=== PATIENT | male | born 1955 | race Caucasian/White ===

== ENCOUNTER 2022-08-22 06:56 | Day surgery (SDC) | payer MEDICARE, OTHER ==
[2022-08-18 15:26] VITALS: BP 102/78
[2022-08-18 15:32] LABS: BASOPHILS % (AUTO) 1.3 % (0.0-5.0); HEMATOCRIT 48.1 % (42-54); LYMPHOCYTES % (AUTO) 30.9 % (21.0-51.0); MEAN CORPUSCULAR HEMOGLOBIN 28.2 pg (27.0-33.0); MEAN CORPUSCULAR HGB CONC 32.2 g/dL (32.0-36.0); MEAN CORPUSCULAR VOLUME 87.5 fL (79-99); MONOCYTES % (AUTO) 8.8 % (3.0-13.0); NEUTROPHILS % (AUTO) 56.6 % (40.0-77.0); PLATELET COUNT (AUTO) 248 K/uL (130-400); RED CELL DISTRIBUTION WIDTH 15.2 % (11.0-15.5)
[2022-08-18 15:48] LABS: POTASSIUM 4.7 mmol/L (3.5-5.1)
[~2022-08-22] VITALS: Ht 182.9 cm; Wt 92.7 kg
[2022-08-22] VITALS (21 sets, daily range): BP systolic 86–176; BP diastolic 52–111
[~2022-08-22 06:56] MED LIST: ATOR40TA69 PO; CITA-107 PO; FAMO20TA8 PO; GABA-533 PO; ISOS30TA92 PO; METO-391 PO; RIVA20TA PO; TRAM50TA4 PO; VITAMIN D3 PO
[2022-08-22] MEDS ORDERED: CEFAZOLIN SODIUM 1 GM VIAL ONE (07:20)
[2022-08-22] MEDS ORDERED: LACTATED RINGERS 1000ML 1,000 ML IV ONE (07:20)
[2022-08-22] MEDS ORDERED: BUPIVACAINE/PF 0.25% 10ML VIAL IJ ONE (10:05)
[2022-08-22] MEDS ORDERED: LIDOCAINE HCL 1% 20 ML VIAL ONE (10:05)
[2022-08-22] MEDS ORDERED: BUPIVACAINE/PF 0.25% 30ML VIAL IJ ONE (10:06)
[2022-08-22] MEDS ORDERED: BUPIVACAINE/PF 0.5% 30ML VIAL INJ ONE (10:11)
[2022-08-22] MEDS ORDERED: IPRATROPIUM/ALBUTEROL SULFATE 3 ML SOLUTION IH ONE (10:12)
[2022-08-22] MEDS ORDERED: LIDOCAINE HCL 1% 20 ML VIAL MISC ONE (10:12)
[2022-08-22] MEDS ORDERED: ROCURONIUM 10MG/1ML SYR 10 MG/ML ML ONE (10:28)
[2022-08-22] MEDS ORDERED: PROPOFOL 10 MG/ML 20ML VIAL IV ONE (10:28)
[2022-08-22] MEDS ORDERED: SUCCINYLCHOLINE 200MG/10ML SYR ONE (10:28)
[2022-08-22] MEDS ORDERED: FENTANYL CITRATE PF 50 MCG/1 ML 2ML VIAL ONE (10:28)
[2022-08-22] MEDS ORDERED: MIDAZOLAM HCL 1 MG/ML 2ML VIAL ONE (10:28)
[2022-08-22] MEDS ORDERED: CEFAZOLIN SODIUM 2 GM VIAL IVPB ONE (10:41)
[2022-08-22] MEDS ORDERED: NEOSTIGMINE 5MG/5ML SYR IV ONE (11:24)
[2022-08-22] MEDS ORDERED: GLYCOPYRROLATE 1 MG/5 ML SYRINGE ONE (11:24)
[2022-08-22] MEDS ORDERED: MEPERIDINE-PF 25 MG/ML SYG ONE (11:59)
== END 2022-08-22 14:00 | disposition home or self-care (01) ==
LOC: DAH 06:56
PROVIDERS: ATTEND Surgery
DX: K40.90 Unilateral inguinal hernia, without obstruction or gangrene, not specified as recurrent (principal); Z20.822 Contact with and (suspected) exposure to COVID-19; I10 Essential (primary) hypertension; I73.9 Peripheral vascular disease, unspecified; I25.10 Atherosclerotic heart disease of native coronary artery without angina pectoris; J44.9 Chronic obstructive pulmonary disease, unspecified; F17.210 Nicotine dependence, cigarettes, uncomplicated; E78.5 Hyperlipidemia, unspecified; Z88.8 Allergy status to other drugs, medicaments and biological substances; Z98.890 Other specified postprocedural states; Z79.899 Other long term (current) drug therapy
CPT/HCPCS: 49650; S2900; 36415; 80048; 85025; 87426; 94640; A4344; J0330; J0690; J2175; J2250; J2704; J2710; J3010; J3490; J7030; J7120

== ENCOUNTER → 2023-11-23 | Outpatient (CLI) | payer OTHER ==
[~2023-11-23] MED LIST changes: -GABA-533 PO; +GABA-534 PO
[2023-11-23 13:01] LABS: CREATININE 0.8 mg/dL (0.5-1.3); POTASSIUM 4.2 mmol/L (3.5-5.1)
== END | disposition home or self-care (01) ==
LOC: LAB 11:19
PROVIDERS: ATTEND Internal Medicine Cardiovascular Disease
DX: I72.9 Aneurysm of unspecified site (principal)
CPT/HCPCS: 36415; 80048

== ENCOUNTER → 2023-11-27 | Outpatient (CLI) | payer OTHER ==
[~2023-11-27] MED LIST changes: +IOHEXOL 350 MG/ML 100ML INFUS..BTL IV ONE; +IOHEXOL-350 50ML VIAL IV ONE
== END | disposition home or self-care (01) ==
LOC: RAH 07:45
PROVIDERS: ATTEND Internal Medicine Cardiovascular Disease
DX: I71.43 Infrarenal abdominal aortic aneurysm, without rupture (principal); N28.1 Cyst of kidney, acquired; K57.30 Diverticulosis of large intestine without perforation or abscess without bleeding; I70.90 Unspecified atherosclerosis; M47.815 Spondylosis without myelopathy or radiculopathy, thoracolumbar region
CPT/HCPCS: 75635; Q9967 ×2

== ENCOUNTER 2025-01-10 04:19 | Inpatient (IN) | payer OTHER, MEDICARE ==
[~2025-01-10] VITALS: Ht 182.9 cm; Wt 92.9 kg
[2025-01-10] VITALS (11 sets, daily range): BP systolic 99–125; BP diastolic 68–74; PULSE 77–105; RESP 18–24; TEMP 97.8–98.2; O2SAT 93–100
[~2025-01-10 04:19] MED LIST changes: -IOHEXOL 350 MG/ML 100ML INFUS..BTL IV ONE; -IOHEXOL-350 50ML VIAL IV ONE
--- NOTE | 2025-01-10 04:51 | ERN ---
ED Note History of Present Illness Stated Complaint: C/O DIFFICULTY BREATHING, Chief Complaint: Dyspnea/Respdistress Time Seen by MD: 04:26 Dictation: This is a 69-year-old male who presented to the emergency room with complaints of shortness of breath cough chest congestion and sputum going on for the past few days. Patient at baseline is not on home oxygen and he is also not on any kind of bronchodilators at baseline. He stated that for the past 1 week he has had increasing shortness of breath cough and copious amounts of sputum with a severe wheezing. No Travel no other sick contacts, no new pets Temperature 97.9 pulse 60 respirations 20 blood pressure 106/72 with a pulse oximetry of 95% on room air His chronic medical problems include AFib on Xarelto, COPD, hypertension, hypercholesterolemia, tobacco abuse active current smoker Allergies: Coded Allergies: morphine (Unverified Allergy, Unknown, 08/18/22) Home Meds Reported Medications Gabapentin (Gabapentin) 400 Mg Capsule, 800 MG PO TID, CAP 08/18/22 Isosorbide Mononitrate (Isosorbide Mononitrate ER) 30 Mg Tab.er.24h, 30 MG PO DAILY, TAB 08/18/22 Metoprolol Succinate (Metoprolol Succinate) 50 Mg Tab.er.24h, 50 MG PO BID, TAB 08/18/22 Famotidine (Famotidine) 20 Mg Tablet, 20 MG PO BID, TAB 08/18/22 Citalopram Hydrobromide (Citalopram HBr) 20 Mg Tablet, 20 MG PO DAILY, TAB 08/18/22 [Vitamin D3] No Conflict Check, 1000 UNITS PO DAILY 08/18/22 Tramadol Hcl (Tramadol HCl) 50 Mg Tablet, 50 MG PO QID PRN for PAIN, TAB 08/18/22 Atorvastatin Calcium (LIPITOR) 80 Mg Tablet, 80 MG PO HS, TAB 08/18/22 Rivaroxaban (Xarelto) 20 Mg Tablet, 20 MG PO PCLUNCH, TAB 08/18/22 Past Medical History Past Medical History: A-Fib, COPD, High Cholesterol, Hypertension Surgical History: Other Family History: Negative Social History: Smokers RN Note Reviewed/Agreed w/PFSH: Yes Review of System Dictation Constitutional: Negative for fever,chills, and weight loss Eyes: Negative for injury, pain,redness, and discharge ENT: Negative for injury,pain or swelling Cardiovascular: Negative for chest pain, palpitations, and edema Respiratory: Positive for shortness of breath, cough, and wheezing, Abdomen/GI: Negative for abdominal pain, nausea, vomiting, diarrhea, and constipation Back: Negative for injury and pain : Negative for injury, bleeding and discharge MS/Extremity: Negative for injury and deformity Skin: Negative for rash, and discoloration Neuro: Negative for headache, weakness, numbness, tingling, and seizure Psych: Negative for suicide ideation, homicidal ideation, and hallucinations Initial Vital Sign VS Vital Signs Date Time Temp Pulse Resp B/P (MAP) Pulse Ox O2 Delivery O2 Flow Rate FiO2 01/10/25 04:31 97.9 60 20 106/72 95 Room Air 01/10/25 04:35 0 21 Physical Exam Dictation General: awake, alert, NAD severe audible wheezing during my evaluation Head/Face: Normocephalic, atraumatic Eyes: PERRL, EOMI, vision at baseline ENT: oral cavity clear, TMs clear, no signs of infection Neck: Trachea midline, supple, no nuchal rigidity Cardiovascular: RRR, normal S1/S2, No MRGs, no JVD Respiratory: Diffuse end expiratory wheezes with audible wheezing. Abdomen: Soft, non-tender, non-distended, normal bowel sounds, no guarding or rebound. Skin: Warm, dry, normal turgor, no rash MS/Extremity: Pulses equal, no cyanosis, neurovascular intact, FROM Neuro: COAx4, GCS 15, strength 5/5, CN 2-12 intact, normal cerebellar exam, normal gait, Psych: Normal behavior, mood, and affect normal Extremities-trace edema without any palpable cords, Homans sign is negative Results (Laboratory/Radiology) Laboratory/Radiology Laboratory Tests Test 01/10/25 04:32 01/10/25 05:26 White Blood Count 8.0 K/uL (4.8-10.8) Red Blood Count 5.84 MIL/uL (4.50-6.20) Hemoglobin 16.7 g/dL (14.0-18.0) Hematocrit 49.5 % (42-54) Mean Corpuscular Volume 84.8 fL (79-99) Mean Corpuscular Hemoglobin 28.6 pg (27.0-33.0) Mean Corpuscular Hemoglobin Concent 33.7 g/dL (32.0-36.0) Red Cell Distribution Width 15.5 % (11.0-15.5) Platelet Count 220 K/uL (130-400) Mean Platelet Volume 10.6 fL (7.5-10.5) H Immature Granulocyte % (Auto) 0.3 % (0-1) Neutrophils (%) (Auto) 55.1 % (40.0-77.0) Lymphocytes (%) (Auto) 27.5 % (21.0-51.0) Monocytes (%) (Auto) 13.3 % (3.0-13.0) H Eosinophils (%) (Auto) 2.9 % (0.0-8.0) Basophils (%) (Auto) 0.9 % (0.0-5.0) Neutrophils # (Auto) 4.4 K/uL (1.8-7.7) Lymphocytes # (Auto) 2.2 K/uL (1.0-4.8) Monocytes # (Auto) 1.1 K/uL (0.1-1.0) H Eosinophils # (Auto) 0.23 K/uL (0.00-0.70) Basophils # (Auto) 0.07 K/uL (0.00-0.20) Absolute Immature Granulocyte (auto 0.02 K/uL (0-1) Nucleated Red Blood Cells 0.0 % (0.0-0.19) Troponin I High Sensitivity 8 ng/L (4-75) B-Type Natriuretic Peptide 72 pg/mL (0-100) Influenza Type A Antigen Negative For Type A Influenza Type B Antigen Negative For Type B SARS-CoV-2 Antigen (Rapid) PRESUMPTIVE NEGATIVE Group A Streptococcus Rapid negative (NEGATIVE) Sodium Level 140 mmol/L (136-145) Potassium Level 4.4 mmol/L (3.5-5.1) Chloride Level 102 mmol/L (101-111) Carbon Dioxide Level 35 mmol/L (21-32) H Blood Urea Nitrogen 17 mg/dL (7-18) Creatinine 0.9 mg/dL (0.5-1.3) Glomerular Filtration Rate Calc 92 mL/min (>90) Random Glucose 104 mg/dL (70-105) Total Calcium 8.7 mg/dL (8.5-10.1) Total Bilirubin 0.9 mg/dL (0.2-1.0) Aspartate Amino Transf (AST/SGOT) 21 U/L (10-37) Alanine Aminotransferase (ALT/SGPT) 23 U/L (12-78) Alkaline Phosphatase 166 U/L (50-136) H Total Creatine Kinase 83 U/L (21-232) Total Protein 6.9 g/dL (6.0-8.3) Albumin 3.2 g/dL (3.5-5.0) L Labs Reviewed?: Yes EKG Comment: Twelve lead EKG done on 01/10/2025 at 4:33 a.m. showed a heart rate of 97 irregular, QRS 92, QT/QTC 366/465 Impression atrial fibrillation with a occasional PVCs. Lot of artifactual recording due to patient shaking and sweating. EKG rhythm strip shows irregular heart rhythm, atrial fibrillation with nonspecific changes Interpreted by ER MD Dr. Arias ED Course ED Course Orders Procedure Category Date Status Time Chest 1vw RAD 01/10/25 Resulted 04:31 12 Lead Ekg Tracing- EKG 01/10/25 Complete Technical 04:32 Ipratropium/Albuterol PHA 01/10/25 Complete Neb (Duoneb) 05:00 Covid19 (Sars Antigen LAB 01/10/25 Complete Rapid) 04:33 Influenza Type A & B, LAB 01/10/25 Complete Rapid 04:33 Rapid (Group A Strep) LAB 01/10/25 Complete 04:33 Cbc With Differential LAB 01/10/25 Complete 04:40 O2 Nc Keep Sats CPOE 01/10/25 Transmitted Greater 92% 04:43 0.9%Nacl 1000ml (Ns PHA 01/10/25 In Process 1000ml) 05:00 Methylprednisolone PHA 01/10/25 Complete Succ 125mg (Solu-Medr 05:00 B-Type Natriuretic LAB 01/10/25 Complete Peptide 04:49 Magnesium 2gm Premix PHA 01/10/25 In Process 50ml (Magnesium 2gm 05:00 Arterial Blood Gas RT 01/10/25 Transmitted 04:54 Albuterol 0.083% PHA 01/10/25 Complete 2.5mg/3ml (Proventil 05:00 Albuterol 0.083% PHA 01/10/25 Complete 2.5mg/3ml (Proventil 04:58 Ceftriaxone 2gm Vial PHA 01/10/25 Complete (Rocephin 2gm Inj) 05:00 Azithromycin 500mg+Ns PHA 01/10/25 In Process 250ml (Azithromyci 05:00 Creatine Kinase, Total LAB 01/10/25 Complete 05:20 Comprehensive LAB 01/10/25 Complete Metabolic Panel 05:20 Troponin I High LAB 01/10/25 Complete Sensitivity 04:32 Edm Admit Bridge Order ADM 01/10/25 Verified 06:33 Current Medications Medications (Trade) Dose Ordered Sig/Kamila Route PRN Reason Start Time Stop Time Status Last Admin Dose Admin Albuterol (DUOneb) 1 UDVIAL ONCE ONCE IH 01/10/25 05:00 01/10/25 05:01 DC 01/10/25 05:22 Albuterol Sulfate (Proventil 0.083% 2.5mg/3ml) 2.5 mg STK-MED ONCE IH 01/10/25 04:58 01/10/25 04:58 DC Albuterol Sulfate (Proventil 0.083% 2.5mg/3ml) 10 mg ONCE ONCE IH 01/10/25 05:00 01/10/25 05:01 DC 01/10/25 05:01 Azithromycin 250 ml @ 250 mls/hr Q24H IVPB 01/10/25 05:00 01/20/25 04:59 01/10/25 06:03 Ceftriaxone Sodium (Rocephin 2gm Inj) 2 gm ONCE ONCE IVPB 01/10/25 05:00 01/10/25 05:02 DC 01/10/25 05:19 Magnesium Sulfate 50 ml @ 0 mls/hr PROTOCOL IV 01/10/25 05:00 02/09/25 04:59 Methylprednisolone Sodium Succinate (Solu-medROL 125MG) 125 mg ONCE ONCE IVP 01/10/25 05:00 01/10/25 05:01 DC 01/10/25 04:49 Sodium Chloride 1,000 ml @ 125 mls/hr ONCE ONCE IV 01/10/25 05:00 01/10/25 12:59 01/10/25 04:58 Vital Signs Date Time Temp Pulse Resp B/P (MAP) Pulse Ox O2 Delivery O2 Flow Rate FiO2 01/10/25 05:50 98.2 90 25 130/103 96 Room Air* 0 21 8/29/25 05:18 86 18 8.0 01/10/25 04:49 100 22 01/10/25 04:35 98.2 105 24 136/99 97 Room Air* 0 21 01/10/25 04:31 97.9 60 20 106/72 95 Room Air We will perform diagnostic labs, advanced imaging and administer medications according to the patient's complaint. Once the results are available, will review and personally interpreted the labs to rule out any acute life- threatening emergency the trach require immediate intervention and treatment. I will then re-evaluate the patient after treatment and diagnostic exams have return to determine whether the patient requires any further testing, can safely be discharged home or need further admission to hospital for additional treatment and evaluation. 5:00 a.m. labs reviewed swabs for COVID 19 infection and group a strep are negative 6:00 a.m. CBC with a normal limits BNP 7 shows a bicarb of 35 BUN and creatinine are 17 and 0.9 troponins negative. Metabolic alkalosis suggests compensation for chronic respiratory acidosis(CO2 retention) and I conclude patient has hypercapnic respiratory failure. Patient refused to get ABG Patient received regular nebulizer treatment as well as continuous nebulizer treatment and admits to feeling slightly improved I updated the patient and spouse on all the available labs and chest x-ray findings and recommended admission to the hospital for further management 6:30 a.m. patient accepted by Dr. Solano, internal medicine resident for admiss ion to the hospitalist group and further management- Medical Decision Making MDM Differential diagnosis: COPD with acute exacerbation, pneumonia, congestive heart failure, retained mucopurulent secretions Rationale: Tests considered and ordered secondary to shared decision making include: labs, ECG and radiology Previous outside records reviewed: Old ER visits. Risk of complication and/or morbidity or mortality of patient management: None Medications-Per medication reconciliation Need for hospitalization: Patient does meet criteria for hospitalization. Need for emergency major/minor surgery: No There are no social concerns with this patient. Prescription drug management Prescriptions will include symptomatic care Patient's prior external medical records from other ER visits were reviewed by me as indicated. Prior testing and results from previous visits were reviewed. Prior tests were taken into account with medical decision making and resource utilization, independent historian/historians were used to obtain complete medical history. I independently interpreted the test that were performed, results were reviewed by me and considered findings on radiology if ordered. Medical management and examination interpretation discussions were had by me with other qualified healthcare professionals as indicated for the patient's care. Problem List Problem List: (1) Respiratory distress (2) COPD with acute exacerbation (3) History of atrial fibrillation (4) Nicotine dependence (5) Acute respiratory failure with hypercapnia DX & DISP Disposition: Inpatient Decision to Admit Time: 06:06 Departure Impression: Primary Impression: Respiratory distress Additional Impressions: COPD with acute exacerbation, History of atrial fibrillation, Nicotine dependence, Acute respiratory failure with hypercapnia Condition: Stable Additional Instructions: Patient was informed of all the diagnostic labs and procedures conducted in the emergency room today and demonstrated understanding of the results. I personally reviewed and interpreted all the diagnostic exams performed in the ER today. The patient will be admitted to the hospital for further treatment and evaluation. Disposition-admit to facility Condition-stable/guarded Course-uncertain at this time Pain status-decreased Assessment-exam unchanged Admission Certification- I certify that the patients status is appropriate and is based on my best clinical judgment and the patient's condition as documented in the medical records Referrals: MIGUEL JACKSON MD (PCP) NIKO ARIAS MD Jan 10, 2025 04:51
[2025-01-10] MEDS: 0.9%NACL 1000ML 1,000 ML IV ONE (04:58)
[2025-01-10] MEDS ORDERED: MAGNESIUM 2GM PREMIX 50ML 50 ML IV SCH (05:00)
[2025-01-10] MEDS: ALBUTEROL 0.083% 2.5 MG/3 ML INH IH ONE ×2 (05:01→06:07)
--- NOTE | 2025-01-10 05:01 | HMCIMG ---
EXAM: CR Chest, 1 view CLINICAL HISTORY: Shortness of breath. COMPARISON: None provided. FINDINGS: Incidental azygous fissure. Mild COPD. The lungs show no infiltrates or other acute findings. No pleural effusion or pneumothorax. The cardiomediastinal silhouette is within normal limits. No acute osseous abnormality. IMPRESSION: No acute cardiopulmonary process is evident. Incidental azygous fissure. Mild COPD. /[place]
[2025-01-10 05:07] LABS: RAPID GROUP A STREP negative (NEGATIVE)
[2025-01-10 05:08] LABS: COVID19 (SARS ANTIGEN RAPID) PRESUMPTIVE NEGATIVE (NEGATIVE); INFLUENZA TYPE A Negative For Type A (NEGATIVE); INFLUENZA TYPE B Negative For Type B (NEGATIVE)
[2025-01-10 05:43] LABS: IMMATURE GRANULOCYTE ABSOLUTE 0.02 K/uL (0-1); NUCLEATED RED BLOOD CELLS 0.0 % (0.0-0.19); PLATELET COUNT (AUTO) 220 K/uL (130-400); RED BLOOD CELL COUNT(AUTO) 5.84 MIL/uL (4.50-6.20); RED CELL DISTRIBUTION WIDTH 15.5 % (11.0-15.5); WHITE BLOOD COUNT (AUTO) 8.0 K/uL (4.8-10.8)
[2025-01-10 05:46] LABS: CREATININE 0.9 mg/dL (0.5-1.3); GLOMERULAR FILTR. RATE CALC 92.0 mL/min (>90); GLUCOSE,RANDOM 104.0 mg/dL (70-105); SODIUM SERUM 140.0 mmol/L (136-145); UREA NITROGEN, BLOOD 17.0 mg/dL (7-18)
[2025-01-10 05:51] LABS: ASPARTATE AMINOTRANSFERASE 21.0 U/L (10-37); CREATINE KINASE, TOTAL 83.0 U/L (21-232); TOTAL PROTEIN, SERUM 6.9 g/dL (6.0-8.3)
[2025-01-10] MEDS: AZITHROMYCIN 500MG+NS 250ML 250 ML IVPB SCH (06:03)
--- NOTE | 2025-01-10 06:03 | EKG ---
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
[2025-01-10 06:59] LABS: ABG BASE EXCESS -0.2 mmol/L (-2.0-3.0); ABG HCO3 25.4 mmol/L (21.0-28.0); ABG OXYGEN SATURATION 91.9 % (94.0-98.0); ABG PCO2 45 mmHg (35-48); ABG PH 7.371 (7.350-7.450); PO2, ARTERIAL BG 64.2 mmHg (83.0-108.0); TEMPERATURE, CELSIUS BG 37.0 CELSIUS (35.5-37.0); VENT MODE, BG RA (ROOM AIR)
[2025-01-10] MEDS ORDERED: PoTASSium chloRIDE 20MEQ ER 20 MEQ ERTAB PO PRN (07:00)
[2025-01-10] MEDS ORDERED: BENZONATATE 100 MG CAPSULE PO PRN (07:00)
[2025-01-10] MEDS ORDERED: MAGNESIUM 2GM PREMIX 50ML 50 ML IV PRN (07:00)
[2025-01-10] MEDS ORDERED: PoTASSium chl 10% ELIXIR 20MEQ 20 MEQ/15 ML UDCUP PO PRN (07:00)
[2025-01-10] MEDS: SODIUM CHLORIDE 3% FOR INHALATION 4 ML/AMP VIAL.NEB IH ONE ×2 (07:05→10:28)
--- NOTE | 2025-01-10 07:10 | NUR ---
ASSUMED PATIENTS CARE.
--- NOTE | 2025-01-10 07:20 | NUR ---
HOME MEDICATIONS REVIEWED, AND RECONSILED BY ADMITTING PHYSICIAN.
--- NOTE | 2025-01-10 08:30 | NUR ---
RESIDENTS FOR HOSPITALIST GROUP ROUNDING.
[2025-01-10] MEDS: VITAMIN D3 1000 UNIT PO SCH (09:00)
[2025-01-10] MEDS: GABAPENTIN 800 MG PO SCH (09:00)
[2025-01-10] MEDS ORDERED: FAMOTIDINE 20MG VIAL IV SCH (09:00)
[2025-01-10] MEDS: ISOSORBIDE MONO 30MG SR TAB PO SCH (09:01)
[2025-01-10] MEDS: FAMOTIDINE 20MG TAB PO SCH (09:01)
--- NOTE | 2025-01-10 09:08 | NUR ---
EDUCATED PATIENT ON SCHEDULED MEDICATION, PLAN OF CARE, PAIN MANAGEMENT, FALL PREVENTION, CURRENT DIET AND POSSIBLE SMOKING CESSATION. PATIENT VERBALIZED UNDERSTADNING.
--- NOTE | 2025-01-10 09:30 | HP ---
[facility] H[facility] PHYSICAL Date of Service: Jan 10, 2025 Time of Service: 08:59 HISTORY OF PRESENT ILLNESS: 69-year-old male came to the ED with a chief complaint of shortness of breath. The patient experienced shortness of breath that began gradually about a week ago. The patient reported that the symptoms worsened over the last 3-4 days, making it difficult to sleep, particularly when lying flat. The patient did not report any exposure to cold, dust, pets. The patient experienced the wheezing sounds that were constant in nature. The patient experienced fever intermittently, feeling colder than usual. Patient denied chest tightness, leg swelling, syncope, fever, chills, night sweats or recent hospital admission for similar reasons. The patient previously had the COPD suggested by his doctor. The patient also mentioned his history of chronic atrial fibrillation, back pain from a previous injury, and the inability to engage in physical activities due to back issues. His vitals appears to be normal except respiratory rate rate 25, BP 130/103. Labs revealed WBC 8.0, hemoglobin 16.7, hematocrit 49.5. Sodium 140, potassium 4.4, chloride1 not 2, bicarbonate 35, alkaline phosphatase 166, CRP 15.9, procalcitonin less than 0.05. ABG revealed PO2 64.2, O2 saturation 91.9. Pending urinalysis, respiratory culture with Gram stain. Chest x-ray revealed mild COPD. Serology is negative for COVID-19, influenza, group a Streptococcus. EKG revealed atrial fibrillation, aberrant conduction of supraventricular beats. Patient resumed on his home medications. PAST MEDICAL HISTORY COPD possibly diagnosed around 2015 to 2016 Atrial fibrillation from childhood Back pain due to a fracture in 1975 Myocardial infarction in 1995 Enlarged prostate PAST SURGICAL HISTORY STENT PLACEMENT 1995 ALLERGIES No known allergies- Morphine Unverified SOCIAL HISTORY SMOKIN pack per day, ongoing since age 15. Alcohol - previously consumed, which due to losing taste for it. 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 REVIEW OF SYSTEMS CONSTITUTIONAL: Positive for intermittent fever. NEUROLOGICAL: Denies headache, amaurosis fugax, motor weakness, sensory deficit, vertigo/spinning sensation, gait abnormalities, or tremors. ENT: No hearing loss, otalgia, otorrhea, rhinitis, rhinorrhea, hoarseness, or sore throat. CARDIOVASCULAR: Positive for palpitations, history of atrial fibrillation. PULMONARY: Positive for shortness of breath and wheezing. Negative for chest tightness and cough SLEEP: Denies morning headaches, daytime somnolence or napping. Denies difficulty falling asleep, staying asleep, waking from sleep. Denies knowledge of snoring. GASTROINTESTINAL: Denies any type of dysphagia to either liquids or solids. Denies nausea, vomiting, pyrosis, early satiety, abdominal pain, diarrhea, constipation, or changes in stool consistency or caliber. Denies coffee-ground emesis, hematemesis, hematochezia, or melanotic stools. GENITOURINARY: Positive for frequent urination within incomplete voiding. Negative for dysuria ENDOCRINOLOGIC: Denies polyuria, polydipsia, polyphagia or heat/cold intolerances. HEMATOLOGIC: Denies thrombophilia/previous clots, or coagulopathy/bleeding disorders. ONCOLOGIC: Denies personal history of malignancy. DERMATOLOGIC: Denies rashes or pruritus. PSYCHIATRIC: Denies any suicidal or homicidal ideation. Denies hallucinations. PAST MEDICAL HISTORY: COPD possibly diagnosed around 2015 to 2016 Atrial fibrillation from childhood Back pain due to a fracture in 1975 Myocardial infarction in 1995 Enlarged prostate PAST SURGICAL HISTORY: STENT PLACEMENT 1995 PAST SOCIAL HISTORY: SMOKIN pack per day, ongoing since age 15. Alcohol - previously consumed, which due to losing taste for it. FAMILY HISTORY: Not significant Coded Allergies: morphine (Unverified Allergy, Unknown, 08/18/22) PHYSICAL EXAM GENERAL APPEARANCE: The patient is awake, alert, and oriented, in mild cardiopulmonary distress NEUROLOGICAL: Cranial nerves II-XII grossly intact. Motor is 5/5 in bilateral upper and lower extremities proximal to distal. No sensory deficits. HEENT: Face is symmetric. Pupils are equal and reactive. Extraocular movements are intact. NECK: Supple. No JVD. No thyromegaly. No submental, submandibular, pre- /postauricular, occipital or supraclavicular lymphadenopathy. CHEST: Normal chest expansion. No Telemetry. LUNGS: Presence of rales, wheezing CARDIOVASCULAR: Irregularly irregular pulse S1 and S2 normal. No appreciable rubs, murmurs or gallops. ABDOMEN: Soft, nontender, and nondistended. There is no rebound, voluntary guarding, or rigidity. : EXTREMITIES: Non-edematous and not cyanotic. No clubbing. Good capillary refill. SKIN: No skin breakdown. Vital Sign (Last 24 Hours) 01/10/25 01/10/25 08:00 08:19 Temp 97.9 Pulse 88 Resp 19 B/P (MAP) 99/68 Pulse Ox 98 O2 Delivery Nasal Cannula* O2 Flow Rate 3 FiO2 32 LABS: Laboratory: Test 01/10/25 06:57 01/10/25 05:26 01/10/25 04:32 Range/Units Blood Gas Specimen Type Arterial Arterial Blood pH 7.371 7.350-7.450 Arterial Blood Partial Pressure CO2 45 35-48 mmHg Arterial Blood Partial Pressure O2 64.2 L 83.0-108.0 mmHg Arterial Blood HCO3 25.4 21.0-28.0 mmol/L Arterial Blood Oxygen Saturation 91.9 L 94.0-98.0 % Arterial Blood Base Excess -0.2 -2.0-3.0 mmol/L Blood Gas Temperature 37.0 35.5-37.0 CELSIUS Blood Gas Vent Mode RA ROOM AIR FiO2 21.0 % Blood Gas Specimen Comment MAURIZIO, Sodium Level 140 136-145 mmol/L Potassium Level 4.4 3.5-5.1 mmol/L Chloride Level 102 101-111 mmol/L Carbon Dioxide Level 35 H 21-32 mmol/L Blood Urea Nitrogen 17 7-18 mg/dL Creatinine 0.9 0.5-1.3 mg/dL Glomerular Filtration Rate Calc 92 >90 mL/min Random Glucose 104 70-105 mg/dL Total Calcium 8.7 8.5-10.1 mg/dL Magnesium Level 2.10 1.80-2.40 mg/dL Total Bilirubin 0.9 0.2-1.0 mg/dL Aspartate Amino Transf (AST/SGOT) 21 10-37 U/L Alanine Aminotransferase (ALT/SGPT) 23 12-78 U/L Alkaline Phosphatase 166 H 50-136 U/L Total Creatine Kinase 83 21-232 U/L C-Reactive Protein, Quantitative 15.90 H 0.5-3.0 mg/L Total Protein 6.9 6.0-8.3 g/dL Albumin 3.2 L 3.5-5.0 g/dL Procalcitonin < 0.05 L 0.05-0.5 ng/mL Thyroid Stimulating Hormone (TSH) 1.79 0.36-3.74 uIU/mL White Blood Count 8.0 4.8-10.8 K/uL Red Blood Count 5.84 4.50-6.20 MIL/uL Hemoglobin 16.7 14.0-18.0 g/dL Hematocrit 49.5 42-54 % Mean Corpuscular Volume 84.8 79-99 fL Mean Corpuscular Hemoglobin 28.6 27.0-33.0 pg Mean Corpuscular Hemoglobin Concent 33.7 32.0-36.0 g/dL Red Cell Distribution Width 15.5 11.0-15.5 % Platelet Count 220 130-400 K/uL Mean Platelet Volume 10.6 H 7.5-10.5 fL Immature Granulocyte % (Auto) 0.3 0-1 % Neutrophils (%) (Auto) 55.1 40.0-77.0 % Lymphocytes (%) (Auto) 27.5 21.0-51.0 % Monocytes (%) (Auto) 13.3 H 3.0-13.0 % Eosinophils (%) (Auto) 2.9 0.0-8.0 % Basophils (%) (Auto) 0.9 0.0-5.0 % Neutrophils # (Auto) 4.4 1.8-7.7 K/uL Lymphocytes # (Auto) 2.2 1.0-4.8 K/uL Monocytes # (Auto) 1.1 H 0.1-1.0 K/uL Eosinophils # (Auto) 0.23 0.00-0.70 K/uL Basophils # (Auto) 0.07 0.00-0.20 K/uL Absolute Immature Granulocyte (auto 0.02 0-1 K/uL Nucleated Red Blood Cells 0.0 0.0-0.19 % Hemoglobin A1c 5.9 4.0-6.0 % Estimated Average Glucose (eAG) 123 70-126 mg/dL Troponin I High Sensitivity 8 4-75 ng/L B-Type Natriuretic Peptide 72 0-100 pg/mL Influenza Type A Antigen Negative For Type A NEGATIVE Influenza Type B Antigen Negative For Type B NEGATIVE SARS-CoV-2 Antigen (Rapid) PRESUMPTIVE NEGATIVE NEGATIVE Group A Streptococcus Rapid negative NEGATIVE Current Medications Medications (Trade) Dose Ordered Sig/Kamila Route PRN Reason Start Time Stop Time Status Last Admin Dose Admin Acetaminophen (TYLenol 325MG TAB) 650 mg Q4H PRN PO TEMPERATURE GREATER THAN 101.5 01/10/25 07:00 02/09/25 06:59 Atorvastatin Calcium (LIPItor 40MG) 80 mg HS PO 01/10/25 21:00 02/09/25 20:59 Azithromycin 250 ml @ 250 mls/hr Q24H IVPB 01/10/25 05:00 01/20/25 04:59 01/10/25 06:03 250 MLS/HR Benzonatate (Tessalon 100mg Caps) 200 mg TID PRN PO COUGH 01/10/25 07:00 02/09/25 06:59 Citalopram Hydrobromide (CeleXA 20MG TAB) 20 mg DAILY PO 01/10/25 09:00 02/09/25 08:59 Famotidine (Pepcid 20mg Vial) 20 mg BID IV 01/10/25 09:00 01/10/25 07:33 DC Famotidine (Pepcid 20mg Tab) 20 mg BID PO 01/10/25 09:00 02/09/25 08:59 Home Med (Home Medication) (Gabapentin 800 MG) TID PO 01/10/25 09:00 02/09/25 08:59 Home Med (Home Medication) ([Vitamin D3] 1,000 UNITS) DAILY PO 01/10/25 09:00 02/09/25 08:59 Ipratropium Bryan (AtrovENT UD) 0.5 mg [id number] IH 01/10/25 10:00 02/09/25 09:59 Isosorbide Mononitrate (Imdur 30mg Sr) 30 mg DAILY PO 01/10/25 09:00 02/09/25 08:59 Magnesium Sulfate 50 ml @ 0 mls/hr PROTOCOL IV 01/10/25 05:00 01/10/25 07:27 DC Magnesium Sulfate 50 ml @ 0 mls/hr PROTOCOL PRN IV mgprotocol 01/10/25 07:00 02/09/25 06:59 Metoprolol Succinate (TopROL XL) 50 mg BID PO 01/10/25 09:00 02/09/25 08:59 Ondansetron HCl (zoFRAN 4MG INJ) 4 mg Q6H PRN IVP NAUSEA/VOMITING 01/10/25 07:00 02/09/25 06:59 Potassium Chloride 100 ml @ 50 mls/hr AD PRN IV POTASSIUM PROTOCOL 01/10/25 07:00 02/09/25 06:59 Potassium Chloride 100 ml @ 100 mls/hr AD PRN IV POTASSIUM PROTOCOL 01/10/25 07:00 02/09/25 06:59 Potassium Chloride (K-Dur/Klor-Con 20meq) 20 meq AD PRN PO POTASSIUM PROTOCOL 01/10/25 07:00 02/09/25 06:59 Potassium Chloride (KCl 10% Elixir 20meq/15ml) 20 meq AD PRN PO POTASSIUM PROTOCOL 01/10/25 07:00 02/09/25 06:59 Rivaroxaban (Xarelto) 20 mg PCLUNCH PO 01/10/25 13:00 02/09/25 12:59 Tramadol HCl (UltRAM) 50 mg QID PRN PO MODERATE PAIN (4-6) 01/10/25 07:30 01/15/25 07:29 DIAGNOSTICS / RADIOLOGY: [place] [address] IMAGING REPORT Signed PATIENT: MELISSA MARIN MR#: [id number] : 1955 SEX: M AGE: 69 LOCATION: ED ORDER 0 STATUS: REG ER REPORT#: [id number] SERVICE 0 REASON: SOB ORDERING PHYSICIAN: NIKO ARIAS MD PROCEDURE: CXR1VW - CHEST 1VW EXAM: CR Chest, 1 view CLINICAL HISTORY: Shortness of breath. COMPARISON: None provided. FINDINGS: Incidental azygous fissure. Mild COPD. The lungs show no infiltrates or other acute findings. No pleural effusion or pneumothorax. The cardiomediastinal silhouette is within normal limits. No acute osseous abnormality. IMPRESSION: No acute cardiopulmonary process is evident. Incidental azygous fissure. Mild COPD. /Chrisman DICTATED BY: JOHANNY JOHNSON Jr., MD DATE: 01/10/25558 ELECTRONICALLY SIGNED BY: JOHANNY JOHNSON Jr., MD DATE: 01/10/25558 ASSESSMENT: COPD exacerbation Atrial fibrillation Benign prostatic hyperplasia PLAN: COPD exacerbation Continue bronchodilator therapy to manage wheezing and improved air flow Planning to order chest CT scan. Planning to order PFTs to assess the extent of COPD Methyl prednisone 40 mg is started Atrial fibrillation Continuing beta-celia for atrial fibrillation management BPH Patient has symptoms of positive for frequent urination with incomplete voiding suggest BPH. Planning includes Limiting evening food intake, reduced caffeine, alcohol. Alpha1 blockers for the symptom relief such as tamsulosin. Finasteride of 5 alpha reductase inhibitors to reduce the prostate gland size. Patient education Advised the patient to smoking cessation to improve respiratory health ATTESTATION BY PHYSICIAN I have seen and examined the patient. I reviewed the documentation, medical decision making, and treatment plan as noted by the mid-level provider above. I agree with the findings and plan of care. Gibson Guzmán MD, HARSHA MD Jan 10, 2025 09:30
--- NOTE | 2025-01-10 11:19 | NUR ---
pt family will bring gabapentin med to be able to take home medication
--- NOTE | 2025-01-10 12:35 | NUR ---
Called pharmacy, spoke with Herson Rosenda, notify her that we do not have dristol 50,000 units in [facility]. She stated she will send medication as soon as possible.
[2025-01-10] MEDS: Solu-medROL 40MG VIAL IVP SCH (12:38)
[2025-01-10] MEDS: RIVAROXABAN 20 MG TABLET PO SCH (12:38)
[2025-01-10] MEDS: ERGOCALCIFEROL (VITAMIN D2) 50,000 UNIT CAPSULE PO ONE (12:50)
--- NOTE | 2025-01-10 13:20 | NUR ---
DCP:HOME Pt currently lives with her sps Elizabet Marsh [phone]. Pt does have a scooter, shower chair, and walker at home. Pt does not have any home health or provider services. Pt does require assistance with ADLs and sps has been the one to assist him. PCP is Dr. Jordan Ulrich and uses the [facility] for any RX needs. At DC pt will return home and family can assist with transportation. Addendum: 01/10/25 at 1325 by ELIGIO CHANEY SS Amended: Links added.
[2025-01-10] MEDS: BUDESONIDE 0.5 MG/2 ML INH IH SCH (14:08)
--- NOTE | 2025-01-10 14:40 | NUR ---
CALLED PHARMACY, SPOKE TO MR. CUNNINGHAM; DISCUSSED PATIENTS GABAPENTIN PRESCRIPTION. mR. CUNNINGHAM NOTIFY ME THAT MEDICATION BOTTLE WAS . i NOTIFY PATIENTS ABOUT SITUATION, SHE STATED BOTTLE SHOWS BUT MEDICATIONS IN IT ARE NOT, ALSO STATED THAT SHE USES BIG BOTTLE TO HOLD MEDICATIONS, WHICH SHE REFILS WITH NEW PILLS EVERY 3 MONTHS. I CALLED MR. CUNNINGHAM FROM PHARMACY AGAIN, HE INFORMED ME HE CAN NOT LABEL AN BOTTLE. ALSO STATED SHE DOES NOT SAVE THE SMALL BOTTLES THAT MEDICATION COMES IN. NOTIFY MR. YAS AU CHARGE NURSE FROM ER.
--- NOTE | 2025-01-10 15:09 | NUR ---
CALLED MR. MERLOS AND GAVE HIM REPORT. DISCUSED PATIENTS PLAN OF CARE, SHCEDULED MEDICATION, PAIN MANAGEMENT, LABD, IMAGING AND HOME MEDICATIONS.
--- NOTE | 2025-01-10 15:09 | NUR ---
URINE SAMPLE SENT.
--- NOTE | 2025-01-10 15:12 | HMCIMG ---
CT CHEST W/O CONTRAST REASON: COPD exacerbation COMPARISON: None. TECHNIQUE: Multiple sequential axial images of the chest were obtained from the thoracic inlet through the upper pole of the kidneys without intravenous contrast administration. FINDINGS: Heart size is within upper limits of normal. There is coronary calcification suggesting of coronary artery disease. No mediastinal or axillary lymphadenopathy identified. There is no pleural or pericardial effusion. Lungs are clear. There is emphysematous changes with multiple bulla seen in both lungs. There is a right azygous lobe with also multiple bulla. There is no consolidation or pneumothorax. Thoracic aorta demonstrates atherosclerotic changes. Trachea and main bronchi are unremarkable. No chest wall abnormality identified. Portable abdomen demonstrate cortical cysts in both kidneys. There is no acute process seen in the left portion of the upper abdomen. IMPRESSION: Diffuse edematous changes of the left with multiple varying sizes Coronary calcification suggesting of coronary disease No acute process seen in the CT of the chest without contrast. CT was performed with one or more following dose reduction techniques: automated exposure control, adjustment of the mA and kv according to patient's size, or use of a iterative reconstruction technique.
--- NOTE | 2025-01-10 15:20 | NUR ---
PT arrived on unit via stretcher from ER accompanied by Rima AU. A&Ox4 able to make needs known, denies pain or discomfort Elizabet @ bedside. PT and educated on hospital environment and safety. Bed @ lowest position call light in reach.
[2025-01-10 15:22] LABS: APPEARANCE,URINE CLEAR (CLEAR); GLUCOSE, URINE (UA) NEGATIVE (NEGATIVE); LEUKOCYTE ESTERASE ,URINE NEGATIVE Leu/uL (NEGATIVE); NITRATE,URINE NEGATIVE (NEGATIVE); OCCULT BLOOD,URINE NEGATIVE (NEGATIVE)
[2025-01-10 15:26] LABS: ADD UA MICROSCOPIC NO
--- NOTE | 2025-01-10 23:20 | CONS ---
[facility] CONSULTATION NOTE Date Patient Seen: Jan 10, 2025 Time of Visit: 23:14 Supervising Physician: Dr. Monte Reason for Consultation: COPD Exacerbation PROBLEM LIST: COPD on exacerbation Atrial fibrillation from childhood Back pain due to a fracture in 1975 Myocardial infarction in 1995 Enlarged prostate HPI: Patient is a 69-year-old male with a past medical history significant for Chronic obstructive pulmonary disease, [place] in 1995, chronic back pain presented to the hospital with severe shortness of breath for which pulmonary team was consulted. At the time of my evaluation patient is on 3 L nasal cannula, chest x-ray and CT show signs of bullous emphysema. Patient states he has been a pack-a-day smoker for the last 15 years. Primary team to start the patient on Solu-Medrol 60 q.6 hours, nebulizer treatments, and azithromycin which we agree with the recommend to continue at this time. Patient's ABG performed in the emergency department shows normal pH with a CO2 of 45, slightly decreased O2 of 64 and a bicarb of 25. Plan Continue Solu-Medrol Continue supplemental O2 Continue antibiotics Continue nebulizer treatments Pending morning ABG Recommend follow-up at [facility] upon discharge PAST MEDICAL HX: see above PAST SURGICAL HX: noncontributory SOCIAL HISTORY: No tobacco, ETOH, or illicit drug use Coded Allergies: morphine (Unverified Allergy, Unknown, 08/18/22) REVIEW OF SYSTEMS: 12 point ROS reviewed with patient. Pertinent positives mentioned above. Otherwise negative. PHYSICAL EXAM: GENERAL: alert, weak, awake oriented x 3 HEENT: EOMI, Sclera non icteric, moist mucosa NECK: Supple, no JVD, trachea midline LUNGS: Clear breath sounds bilaterally. No wheezes HEART: Regular rate and rhythm. Normal S1 and S2, without murmurs ABD: Abdomen soft, nontender. Bowel sounds present EXT: No clubbing cyanosis or edema NEURO: Alert and oriented to person, follows commands Vital Signs (last 8hr) Date Time Temp Pulse Resp B/P (MAP) Pulse Ox O2 Delivery O2 Flow Rate FiO2 01/10/25 20:00 98.2 105 18 115/74 93 Room Air 01/10/25 18:47 85 20 N/Cannula Low lpm 21 01/10/25 18:47 85 20 01/10/25 15:25 98.1 77 21 125/68 94 Nasal Cannula 2.0 01/10/25 15:20 97 Nasal Cannula* 3 32 LABS: Hematology Labs: Test 01/10/25 04:32 Range/Units White Blood Count 8.0 4.8-10.8 K/uL Red Blood Count 5.84 4.50-6.20 MIL/uL Hemoglobin 16.7 14.0-18.0 g/dL Hematocrit 49.5 42-54 % Mean Corpuscular Volume 84.8 79-99 fL Mean Corpuscular Hemoglobin 28.6 27.0-33.0 pg Mean Corpuscular Hemoglobin Concent 33.7 32.0-36.0 g/dL Red Cell Distribution Width 15.5 11.0-15.5 % Platelet Count 220 130-400 K/uL Mean Platelet Volume 10.6 H 7.5-10.5 fL Immature Granulocyte % (Auto) 0.3 0-1 % Neutrophils (%) (Auto) 55.1 40.0-77.0 % Lymphocytes (%) (Auto) 27.5 21.0-51.0 % Monocytes (%) (Auto) 13.3 H 3.0-13.0 % Eosinophils (%) (Auto) 2.9 0.0-8.0 % Basophils (%) (Auto) 0.9 0.0-5.0 % Neutrophils # (Auto) 4.4 1.8-7.7 K/uL Lymphocytes # (Auto) 2.2 1.0-4.8 K/uL Monocytes # (Auto) 1.1 H 0.1-1.0 K/uL Eosinophils # (Auto) 0.23 0.00-0.70 K/uL Basophils # (Auto) 0.07 0.00-0.20 K/uL Absolute Immature Granulocyte (auto 0.02 0-1 K/uL Nucleated Red Blood Cells 0.0 0.0-0.19 % Chemistry Labs: Test 01/10/25 05:26 01/10/25 04:32 Range/Units Sodium Level 140 136-145 mmol/L Potassium Level 4.4 3.5-5.1 mmol/L Chloride Level 102 101-111 mmol/L Carbon Dioxide Level 35 H 21-32 mmol/L Blood Urea Nitrogen 17 7-18 mg/dL Creatinine 0.9 0.5-1.3 mg/dL Glomerular Filtration Rate Calc 92 >90 mL/min Random Glucose 104 70-105 mg/dL Total Calcium 8.7 8.5-10.1 mg/dL Magnesium Level 2.10 1.80-2.40 mg/dL Total Bilirubin 0.9 0.2-1.0 mg/dL Aspartate Amino Transf (AST/SGOT) 21 10-37 U/L Alanine Aminotransferase (ALT/SGPT) 23 12-78 U/L Alkaline Phosphatase 166 H 50-136 U/L Total Creatine Kinase 83 21-232 U/L C-Reactive Protein, Quantitative 15.90 H 0.5-3.0 mg/L Total Protein 6.9 6.0-8.3 g/dL Albumin 3.2 L 3.5-5.0 g/dL Procalcitonin < 0.05 L 0.05-0.5 ng/mL Thyroid Stimulating Hormone (TSH) 1.79 0.36-3.74 uIU/mL Hemoglobin A1c 5.9 4.0-6.0 % Estimated Average Glucose (eAG) 123 70-126 mg/dL Troponin I High Sensitivity 8 4-75 ng/L B-Type Natriuretic Peptide 72 0-100 pg/mL DIAGNOSTICS / RADIOLOGY RESULTS: [ ] PLAN NEURO: Minimize central acting medications as possible. Maintain fall precautions, adequate lighting during the day PULMONARY: Supplemental 02 as needed. Maintain aspiration precautions at all times CARDIOVASCULAR: Follow hemodynamics. Vital signs per facility protocol GI & NUTRITION: Continue with nutritional support. Continue stool softeners and laxatives as needed. KIDNEYS & ELECTROLYTES: Strict monitoring of intake, output and overall fluid balance. Avoid nephrotoxic medications to the extent possible. Medications to be dosed according to renal function. Monitor electrolytes and replace as needed ENDOCRINE: Maintain blood glucose between 100-180 at all times. Hypoglycemia protocol in place INFECTIOUS DISEASE: Trend temperature, WBC and procalcitonin level Follow cultures, deescalate antibiotics as soon as possible. Panculture if new onset fever ONCOLOGY/HEMATOLOGY/COAGULATION: Monitor for s/s of bleeding Monitor hemoglobin, coagulation studies as needed SKIN: Pressure ulcer prevention per facility protocol Specialty mattress ORTHO/REHAB: Continue PT/OT Prophylaxis: Continue GI and DVT prophylaxis Code Status: Full Resuscitation Disposition: TBD Other: Total patient care time exceeds 35 minutes excluding all procedures. SAMMI PEARCE Jan 10, 2025 23:20
[2025-01-11] VITALS (17 sets, daily range): BP systolic 109–129; BP diastolic 61–93; PULSE 70–105; RESP 18–28; TEMP 97.5–98.4; O2SAT 80–97
[2025-01-11 03:01] LABS: ABG BASE EXCESS -1.2 mmol/L (-2.0-3.0); ABG HCO3 22.0 mmol/L (21.0-28.0); ABG OXYGEN SATURATION 93.9 % (94.0-98.0); ABG PCO2 33 mmHg (35-48); ABG PH 7.445 (7.350-7.450); DEVICE COMMENT RR RN; PO2, ARTERIAL BG 65.4 mmHg (83.0-108.0); TEMPERATURE, CELSIUS BG 37.0 CELSIUS (35.5-37.0); VENT MODE, BG RA (ROOM AIR)
[2025-01-11 04:26] LABS: IMMATURE GRANULOCYTE ABSOLUTE 0.08 K/uL (0-1); NUCLEATED RED BLOOD CELLS 0.0 % (0.0-0.19); PLATELET COUNT (AUTO) 191 K/uL (130-400); RED BLOOD CELL COUNT(AUTO) 5.15 MIL/uL (4.50-6.20); RED CELL DISTRIBUTION WIDTH 15.1 % (11.0-15.5); WHITE BLOOD COUNT (AUTO) 18.7 K/uL (4.8-10.8)
[2025-01-11 04:41] LABS: CREATININE 0.9 mg/dL (0.5-1.3); GLOMERULAR FILTR. RATE CALC 92.0 mL/min (>90); GLUCOSE,RANDOM 143.0 mg/dL (70-105); SODIUM SERUM 138.0 mmol/L (136-145); UREA NITROGEN, BLOOD 23.0 mg/dL (7-18)
[2025-01-11] MEDS: GABAPENTIN 300 MG CAPSULE PO SCH (09:00)
[2025-01-11] MEDS: Solu-medROL 40MG VIAL IVP SCH (09:24)
--- NOTE | 2025-01-11 18:53 | PN ---
[facility] PROGRESS NOTE Date of Service: Jan 11, 2025 Time of Service: 18:42 SUBJECTIVE: 69-year-old male came to the ED with a chief complaint of shortness of breath. The patient experienced shortness of breath that began gradually about a week ago. The patient reported that the symptoms worsened over the last 3-4 days, making it difficult to sleep, particularly when lying flat. The patient did not report any exposure to cold, dust, pets. The patient experienced the wheezing sounds that were constant in nature. The patient experienced fever intermittently, feeling colder than usual. Patient denied chest tightness, leg swelling, syncope, fever, chills, night sweats or recent hospital admission for similar reasons. The patient previously had the COPD suggested by his doctor. The patient also mentioned his history of chronic atrial fibrillation, back pain from a previous injury, and the inability to engage in physical activities due to back issues. His vitals appears to be normal except respiratory rate rate 25, BP 130/103. Labs revealed WBC 8.0, hemoglobin 16.7, hematocrit 49.5. Sodium 140, potassium 4.4, chloride1 not 2, bicarbonate 35, alkaline phosphatase 166, CRP 15.9, procalcitonin less than 0.05. ABG revealed PO2 64.2, O2 saturation 91.9. Pending urinalysis, respiratory culture with Gram stain. Chest x-ray revealed mild COPD. Serology is negative for COVID-19, influenza, group a Streptococcus. EKG revealed atrial fibrillation, aberrant conduction of supraventricular beats. Patient resumed on his home medications. 01/11/2025: Patient was seen bedside in room. Patient was, awake, and oriented. He stated that his shortness of breath was going down until today morning when it suddenly became worse. He states that the nebulization treatment he received in the morning improved the shortness of breath. Patient was seen by Pulmonary and critical Care Medicine who evaluated the patient and recommended to continue with the current treatment plan. Patient's vitals are stable with a blood pressure of 109/61 and a pulse rate of 70. REVIEW OF SYSTEMS CONSTITUTIONAL: Positive for intermittent fever. NEUROLOGICAL: Denies headache, amaurosis fugax, motor weakness, sensory deficit, vertigo/spinning sensation, gait abnormalities, or tremors. ENT: No hearing loss, otalgia, otorrhea, rhinitis, rhinorrhea, hoarseness, or sore throat. CARDIOVASCULAR: Positive for palpitations, history of atrial fibrillation. PULMONARY: Positive for shortness of breath and wheezing. Negative for chest tightness and cough SLEEP: Denies morning headaches, daytime somnolence or napping. Denies difficulty falling asleep, staying asleep, waking from sleep. Denies knowledge of snoring. GASTROINTESTINAL: Denies any type of dysphagia to either liquids or solids. Denies nausea, vomiting, pyrosis, early satiety, abdominal pain, diarrhea, constipation, or changes in stool consistency or caliber. Denies coffee-ground emesis, hematemesis, hematochezia, or melanotic stools. GENITOURINARY: Positive for frequent urination within incomplete voiding. Negative for dysuria ENDOCRINOLOGIC: Denies polyuria, polydipsia, polyphagia or heat/cold intolerances. HEMATOLOGIC: Denies thrombophilia/previous clots, or coagulopathy/bleeding disorders. ONCOLOGIC: Denies personal history of malignancy. DERMATOLOGIC: Denies rashes or pruritus. PSYCHIATRIC: Denies any suicidal or homicidal ideation. Denies hallucinations. PHYSICAL EXAM GENERAL APPEARANCE: The patient is awake, alert, and oriented, in mild cardiopulmonary distress NEUROLOGICAL: Cranial nerves II-XII grossly intact. Motor is 5/5 in bilateral upper and lower extremities proximal to distal. No sensory deficits. HEENT: Face is symmetric. Pupils are equal and reactive. Extraocular movements are intact. NECK: Supple. No JVD. No thyromegaly. No submental, submandibular, pre- /postauricular, occipital or supraclavicular lymphadenopathy. CHEST: Normal chest expansion. No Telemetry. LUNGS: Presence of rales, wheezing CARDIOVASCULAR: Irregularly irregular pulse S1 and S2 normal. No appreciable rubs, murmurs or gallops. ABDOMEN: Soft, nontender, and nondistended. There is no rebound, voluntary guarding, or rigidity. : EXTREMITIES: Non-edematous and not cyanotic. No clubbing. Good capillary refill. SKIN: No skin breakdown. Vital Signs (last 8hr) Date Time Temp Pulse Resp B/P (MAP) Pulse Ox O2 Delivery O2 Flow Rate FiO2 01/11/25 18:34 94 28 01/11/25 18:34 94 22 N/Cannula Low lpm 3.0 32 01/11/25 16:11 98.2 70 18 109/61 96 Nasal Cannula 3.0 28 01/11/25 13:53 92 28 01/11/25 12:00 98.1 100 18 128/93 95 Nasal Cannula 3.0 28 LABS: Laboratory: Test 01/11/25 03:56 01/11/25 02:59 01/10/25 15:00 01/10/25 05:26 Range/Units White Blood Count 18.7 #H 4.8-10.8 K/uL Red Blood Count 5.15 4.50-6.20 MIL/uL Hemoglobin 14.6 14.0-18.0 g/dL Hematocrit 44.0 42-54 % Mean Corpuscular Volume 85.4 79-99 fL Mean Corpuscular Hemoglobin 28.3 27.0-33.0 pg Mean Corpuscular Hemoglobin Concent 33.2 32.0-36.0 g/dL Red Cell Distribution Width 15.1 11.0-15.5 % Platelet Count 191 130-400 K/uL Mean Platelet Volume 10.2 7.5-10.5 fL Immature Granulocyte % (Auto) 0.4 0-1 % Neutrophils (%) (Auto) 89.2 H 40.0-77.0 % Lymphocytes (%) (Auto) 6.6 L 21.0-51.0 % Monocytes (%) (Auto) 3.6 3.0-13.0 % Eosinophils (%) (Auto) 0.0 0.0-8.0 % Basophils (%) (Auto) 0.2 0.0-5.0 % Neutrophils # (Auto) 16.7 H 1.8-7.7 K/uL Lymphocytes # (Auto) 1.2 1.0-4.8 K/uL Monocytes # (Auto) 0.7 0.1-1.0 K/uL Eosinophils # (Auto) 0.00 0.00-0.70 K/uL Basophils # (Auto) 0.03 0.00-0.20 K/uL Absolute Immature Granulocyte (auto 0.08 0-1 K/uL Nucleated Red Blood Cells 0.0 0.0-0.19 % White Cell Morphology Comment See comments Sodium Level 138 136-145 mmol/L Potassium Level 3.9 3.5-5.1 mmol/L Chloride Level 103 101-111 mmol/L Carbon Dioxide Level 29 21-32 mmol/L Blood Urea Nitrogen 23 H 7-18 mg/dL Creatinine 0.9 0.5-1.3 mg/dL Glomerular Filtration Rate Calc 92 >90 mL/min Random Glucose 143 H 70-105 mg/dL Total Calcium 9.2 8.5-10.1 mg/dL C-Reactive Protein, Quantitative 10.60 H 0.5-3.0 mg/L Blood Gas Specimen Type Arterial Arterial Blood pH 7.445 7.350-7.450 Arterial Blood Partial Pressure CO2 33 L 35-48 mmHg Arterial Blood Partial Pressure O2 65.4 L 83.0-108.0 mmHg Arterial Blood HCO3 22.0 21.0-28.0 mmol/L Arterial Blood Oxygen Saturation 93.9 L 94.0-98.0 % Arterial Blood Base Excess -1.2 -2.0-3.0 mmol/L Blood Gas Temperature 37.0 35.5-37.0 CELSIUS Blood Gas Vent Mode RA ROOM AIR FiO2 21.0 % Blood Gas Specimen Comment RR RN Urine Color YELLOW YELLOW Urine Appearance CLEAR CLEAR Urine pH 5.5 5.0-8.0 Urine Specific [place] 1.029 1.001-1.031 Urine Protein NEGATIVE NEGATIVE mg/dL Urine Glucose (UA) NEGATIVE NEGATIVE mg/dL Urine Ketones NEGATIVE NEGATIVE mg/dL Urine Occult Blood NEGATIVE NEGATIVE Urine Nitrate NEGATIVE NEGATIVE Urine Bilirubin NEGATIVE NEGATIVE mg/dL Urine Urobilinogen 4.0 H 0.2-1.0 mg/dL Urine Leukocyte Esterase NEGATIVE NEGATIVE Florin/uL Magnesium Level 2.10 1.80-2.40 mg/dL Total Bilirubin 0.9 0.2-1.0 mg/dL Aspartate Amino Transf (AST/SGOT) 21 10-37 U/L Alanine Aminotransferase (ALT/SGPT) 23 12-78 U/L Alkaline Phosphatase 166 H 50-136 U/L Total Creatine Kinase 83 21-232 U/L Total Protein 6.9 6.0-8.3 g/dL Albumin 3.2 L 3.5-5.0 g/dL Procalcitonin < 0.05 L 0.05-0.5 ng/mL Thyroid Stimulating Hormone (TSH) 1.79 0.36-3.74 uIU/mL Test 01/10/25 04:32 Range/Units Hemoglobin A1c 5.9 4.0-6.0 % Estimated Average Glucose (eAG) 123 70-126 mg/dL Troponin I High Sensitivity 8 4-75 ng/L B-Type Natriuretic Peptide 72 0-100 pg/mL Influenza Type A Antigen Negative For Type A NEGATIVE Influenza Type B Antigen Negative For Type B NEGATIVE SARS-CoV-2 Antigen (Rapid) PRESUMPTIVE NEGATIVE NEGATIVE Group A Streptococcus Rapid negative NEGATIVE Current Medications Medications (Trade) Dose Ordered Sig/Kamila Route PRN Reason Start Time Stop Time Status Last Admin Dose Admin Acetaminophen (TYLenol 325MG TAB) 650 mg Q4H PRN PO TEMPERATURE GREATER THAN 101.5 01/10/25 07:00 02/09/25 06:59 Atorvastatin Calcium (LIPItor 40MG) 80 mg HS PO 01/10/25 21:00 02/09/25 20:59 01/10/25 21:21 80 MG Azithromycin 250 ml @ 250 mls/hr Q24H IVPB 01/10/25 05:00 01/20/25 04:59 01/11/25 05:05 250 MLS/HR Benzonatate (Tessalon 100mg Caps) 200 mg TID PRN PO COUGH 01/10/25 07:00 02/09/25 06:59 Budesonide (Pulmicort 0.5 Mg/2ml) 0.5 mg BID IH 01/10/25 11:30 02/09/25 11:29 01/11/25 18:33 0.5 MG Citalopram Hydrobromide (CeleXA 20MG TAB) 20 mg DAILY PO 01/10/25 09:00 02/09/25 08:59 01/11/25 09:24 20 MG Famotidine (Pepcid 20mg Vial) 20 mg BID IV 01/10/25 09:00 01/10/25 07:33 DC Famotidine (Pepcid 20mg Tab) 20 mg BID PO 01/10/25 09:00 02/09/25 08:59 01/11/25 09:24 20 MG Gabapentin (NEURontin 100 mg CAP) 200 mg TID PO 01/11/25 09:00 02/10/25 08:59 Gabapentin (NEURontin 300 MG CAP) 600 mg TID PO 01/11/25 09:00 02/10/25 08:59 Home Med (Home Medication) (Gabapentin 800 MG) TID PO 01/10/25 09:00 01/11/25 08:00 DC Home Med (Home Medication) ([Vitamin D3] 1,000 UNITS) DAILY PO 01/10/25 09:00 02/09/25 08:59 Ipratropium Adams (AtrovENT UD) 0.5 mg [id number] IH 01/10/25 10:00 02/09/25 09:59 01/11/25 18:33 0.5 MG Isosorbide Mononitrate (Imdur 30mg Sr) 30 mg DAILY PO 01/10/25 09:00 02/09/25 08:59 01/11/25 09:24 30 MG Magnesium Sulfate 50 ml @ 0 mls/hr PROTOCOL IV 01/10/25 05:00 01/10/25 07:27 DC Magnesium Sulfate 50 ml @ 0 mls/hr PROTOCOL PRN IV mgprotocol 01/10/25 07:00 02/09/25 06:59 Methylprednisolone Sodium Succinate (Solu-medROL 40MG) 40 mg Q8H IVP 01/11/25 09:00 02/10/25 08:59 01/11/25 16:57 40 MG Methylprednisolone Sodium Succinate (Solu-medROL 40MG) 60 mg Q6H IVP 01/10/25 11:30 01/11/25 09:01 DC 01/11/25 05:05 60 MG Metoprolol Succinate (TopROL XL) 50 mg BID PO 01/10/25 09:00 02/09/25 08:59 01/11/25 09:23 50 MG Ondansetron HCl (zoFRAN 4MG INJ) 4 mg Q6H PRN IVP NAUSEA/VOMITING 01/10/25 07:00 02/09/25 06:59 Potassium Chloride 100 ml @ 50 mls/hr AD PRN IV POTASSIUM PROTOCOL 01/10/25 07:00 02/09/25 06:59 Potassium Chloride 100 ml @ 100 mls/hr AD PRN IV POTASSIUM PROTOCOL 01/10/25 07:00 02/09/25 06:59 Potassium Chloride (K-Dur/Klor-Con 20meq) 20 meq AD PRN PO POTASSIUM PROTOCOL 01/10/25 07:00 02/09/25 06:59 Potassium Chloride (KCl 10% Elixir 20meq/15ml) 20 meq AD PRN PO POTASSIUM PROTOCOL 01/10/25 07:00 02/09/25 06:59 Prednisone (deltaSONE/ oraSONE 20MG TAB) 40 mg DAILY PO 01/11/25 09:00 01/10/25 11:32 DC Rivaroxaban (Xarelto) 20 mg PCLUNCH PO 01/10/25 13:00 02/09/25 12:59 01/11/25 13:20 20 MG Tramadol HCl (UltRAM) 50 mg QID PRN PO MODERATE PAIN (4-6) 01/10/25 07:30 01/15/25 07:29 01/11/25 16:56 50 MG DIAGNOSTICS / RADIOLOGY: [facility] [address] [place] [address] IMAGING REPORT Signed PATIENT: MELISSA MARIN MR#: [id number] : 1955 SEX: M AGE: 69 LOCATION: [facility] ORDER 113 STATUS: ADM IN REPORT#: [id number] SERVICE [id number] REASON: COPD exacerbation ORDERING PHYSICIAN: EVIE FONTENOT MD PROCEDURE: CHEST WO - CT CHEST W/O CONTRAST CT CHEST W/O CONTRAST REASON: COPD exacerbation COMPARISON: None. TECHNIQUE: Multiple sequential axial images of the chest were obtained from the thoracic inlet through the upper pole of the kidneys without intravenous contrast administration. FINDINGS: Heart size is within upper limits of normal. There is coronary calcification suggesting of coronary artery disease. No mediastinal or axillary lymphadenopathy identified. There is no pleural or pericardial effusion. Lungs are clear. There is emphysematous changes with multiple bulla seen in both lungs. There is a right azygous lobe with also multiple bulla. There is no consolidation or pneumothorax. Thoracic aorta demonstrates atherosclerotic changes. Trachea and main bronchi are unremarkable. No chest wall abnormality identified. Portable abdomen demonstrate cortical cysts in both kidneys. There is no acute process seen in the left portion of the upper abdomen. IMPRESSION: Diffuse edematous changes of the left with multiple varying sizes Coronary calcification suggesting of coronary disease No acute process seen in the CT of the chest without contrast. CT was performed with one or more following dose reduction techniques: automated exposure control, adjustment of the mA and kv according to patient's size, or use of a iterative reconstruction technique. DICTATED BY: MARIO DOYLE MD DATE: 01/10/25 1507 ELECTRONICALLY SIGNED BY: MARIO DOYLE MD DATE: 01/10/25 1512 ASSESSMENT: COPD exacerbation Atrial fibrillation Benign prostatic hyperplasia PLAN: COPD exacerbation -CT chest revealed diffuse edematous changes of the left lung with multiple varying sizes and also evidence of bullous emphysema. -patient's ABG on 01/10 showed a normal pH with a CO2 of45 and slightly decreased due to it 64, and a bicarb of 25. -patient currently on Solu-Medrol 60 q.6 hours, supportive nebulization and azithromycin. -pulmonary and critical care consulted, they recommended continued continuing with the current treatment regimen. -continue to monitor for signs of recovery. Atrial fibrillation -patient was in active AFib in the emergency department with a pulse rate of 97 -home medications included metoprolol. -continue home meds. -patient placed on telemetry. -continue to monitor. Patient education Advised the patient to smoking cessation to improve respiratory health GI prophylaxis with Pepcid 20 mg. GI prophylaxis with Xarelto. ATTESTATION BY PHYSICIAN I have seen and examined the patient. I reviewed the documentation, medical decision making, and treatment plan as noted by the resident provider above. I agree with the findings and plan of care. Gibson Guzmán MD, HEMA MD Jan 11, 2025 18:53
--- NOTE | 2025-01-11 21:29 | PN ---
[facility] PROGRESS NOTE Date Patient Seen: Jan 11, 2025 Time of Visit: 21:27 Supervising Physician: Dr. Monte PROBLEM LIST: COPD on exacerbation Atrial fibrillation from childhood Back pain due to a fracture in 1975 Myocardial infarction in 1995 Enlarged prostate INTERVAL HISTORY: Patient evaluated at bedside today, currently on 3 L nasal cannula. Patient's steroids has been decreased to 40 mg q.8 hours. White count elevated at 18.7 secondary to steroids. Patient with a severe wet cough, however states that that has been a chronic cough and was present prior to his admission. Recommend to continue with medical treatment at this time. Plan Continue with antibiotics Continue with steroids Solu-Medrol 40 mg q.8 hours IV push Continue with nebulizer treatment Continue supplemental O2 Continue cough symptomatic relief REVIEW OF SYSTEMS: 12 point ROS reviewed with patient. Pertinent positives mentioned above. Otherwise negative. PHYSICAL EXAM: GENERAL: alert, weak, awake oriented x 3 HEENT: EOMI, Sclera non icteric, moist mucosa NECK: Supple, no JVD, trachea midline LUNGS: Clear breath sounds bilaterally. No wheezes HEART: Regular rate and rhythm. Normal S1 and S2, without murmurs ABD: Abdomen soft, nontender. Bowel sounds present EXT: No clubbing cyanosis or edema NEURO: Alert and oriented to person, follows commands Vital Signs (last 8hr) Date Time Temp Pulse Resp B/P (MAP) Pulse Ox O2 Delivery O2 Flow Rate FiO2 01/11/25 20:00 98.1 86 18 110/73 97 Room Air 01/11/25 19:05 97 Nasal Cannula* 3 32 01/11/25 18:34 94 28 01/11/25 18:34 94 22 N/Cannula Low lpm 3.0 32 01/11/25 16:11 98.2 70 18 109/61 96 Nasal Cannula 3.0 28 01/11/25 13:53 92 28 LABS: Hematology Labs: Test 01/11/25 03:56 Range/Units White Blood Count 18.7 #H 4.8-10.8 K/uL Red Blood Count 5.15 4.50-6.20 MIL/uL Hemoglobin 14.6 14.0-18.0 g/dL Hematocrit 44.0 42-54 % Mean Corpuscular Volume 85.4 79-99 fL Mean Corpuscular Hemoglobin 28.3 27.0-33.0 pg Mean Corpuscular Hemoglobin Concent 33.2 32.0-36.0 g/dL Red Cell Distribution Width 15.1 11.0-15.5 % Platelet Count 191 130-400 K/uL Mean Platelet Volume 10.2 7.5-10.5 fL Immature Granulocyte % (Auto) 0.4 0-1 % Neutrophils (%) (Auto) 89.2 H 40.0-77.0 % Lymphocytes (%) (Auto) 6.6 L 21.0-51.0 % Monocytes (%) (Auto) 3.6 3.0-13.0 % Eosinophils (%) (Auto) 0.0 0.0-8.0 % Basophils (%) (Auto) 0.2 0.0-5.0 % Neutrophils # (Auto) 16.7 H 1.8-7.7 K/uL Lymphocytes # (Auto) 1.2 1.0-4.8 K/uL Monocytes # (Auto) 0.7 0.1-1.0 K/uL Eosinophils # (Auto) 0.00 0.00-0.70 K/uL Basophils # (Auto) 0.03 0.00-0.20 K/uL Absolute Immature Granulocyte (auto 0.08 0-1 K/uL Nucleated Red Blood Cells 0.0 0.0-0.19 % White Cell Morphology Comment See comments Chemistry Labs: Test 01/11/25 03:56 01/10/25 05:26 01/10/25 04:32 Range/Units Sodium Level 138 136-145 mmol/L Potassium Level 3.9 3.5-5.1 mmol/L Chloride Level 103 101-111 mmol/L Carbon Dioxide Level 29 21-32 mmol/L Blood Urea Nitrogen 23 H 7-18 mg/dL Creatinine 0.9 0.5-1.3 mg/dL Glomerular Filtration Rate Calc 92 >90 mL/min Random Glucose 143 H 70-105 mg/dL Total Calcium 9.2 8.5-10.1 mg/dL C-Reactive Protein, Quantitative 10.60 H 0.5-3.0 mg/L Magnesium Level 2.10 1.80-2.40 mg/dL Total Bilirubin 0.9 0.2-1.0 mg/dL Aspartate Amino Transf (AST/SGOT) 21 10-37 U/L Alanine Aminotransferase (ALT/SGPT) 23 12-78 U/L Alkaline Phosphatase 166 H 50-136 U/L Total Creatine Kinase 83 21-232 U/L Total Protein 6.9 6.0-8.3 g/dL Albumin 3.2 L 3.5-5.0 g/dL Procalcitonin < 0.05 L 0.05-0.5 ng/mL Thyroid Stimulating Hormone (TSH) 1.79 0.36-3.74 uIU/mL Hemoglobin A1c 5.9 4.0-6.0 % Estimated Average Glucose (eAG) 123 70-126 mg/dL Troponin I High Sensitivity 8 4-75 ng/L B-Type Natriuretic Peptide 72 0-100 pg/mL DIAGNOSTICS / RADIOLOGY RESULTS: [ ] PLAN NEURO: Minimize central acting medications as possible. Maintain fall precautions, adequate lighting during the day PULMONARY: Supplemental 02 as needed. Maintain aspiration precautions at all times CARDIOVASCULAR: Follow hemodynamics. Vital signs per facility protocol GI & NUTRITION: Continue with nutritional support. Continue stool softeners and laxatives as needed. KIDNEYS & ELECTROLYTES: Strict monitoring of intake, output and overall fluid balance. Avoid nephrotoxic medications to the extent possible. Medications to be dosed according to renal function. Monitor electrolytes and replace as needed ENDOCRINE: Maintain blood glucose between 100-180 at all times. Hypoglycemia protocol in place INFECTIOUS DISEASE: Trend temperature, WBC and procalcitonin level Follow cultures, deescalate antibiotics as soon as possible. Panculture if new onset fever ONCOLOGY/HEMATOLOGY/COAGULATION: Monitor for s/s of bleeding Monitor hemoglobin, coagulation studies as needed SKIN: Pressure ulcer prevention per facility protocol Specialty mattress ORTHO/REHAB: Continue PT/OT Prophylaxis: Continue GI and DVT prophylaxis Code Status: Full Resuscitation Disposition: TBD Other: Total patient care time exceeds 35 minutes excluding all procedures. SAMMI PEARCE Jan 11, 2025 21:29
[2025-01-12] VITALS (14 sets, daily range): BP systolic 112–146; BP diastolic 55–96; PULSE 77–110; RESP 16–28; TEMP 97.3–98.2; O2SAT 95–99
--- NOTE | 2025-01-12 01:41 | NUR ---
nurse note patient alert and oriented times 4. plan of care discussed with him and he verbalized understanding. patient is ambulatory to the restroom without issues. he has no pain tonight. he has slept about 5 hours tonight. he is on 3 liters of oxygen via nasal cannula sating at 97%. call light within reach, bed alarm on, 2 side rails up. will continue to monitor patient.
[2025-01-12 04:20] LABS: IMMATURE GRANULOCYTE ABSOLUTE 0.14 K/uL (0-1); NUCLEATED RED BLOOD CELLS 0.0 % (0.0-0.19); PLATELET COUNT (AUTO) 222 K/uL (130-400); RED BLOOD CELL COUNT(AUTO) 4.99 MIL/uL (4.50-6.20); RED CELL DISTRIBUTION WIDTH 15.4 % (11.0-15.5); WHITE BLOOD COUNT (AUTO) 22.9 K/uL (4.8-10.8)
[2025-01-12 04:33] LABS: CREATININE 0.8 mg/dL (0.5-1.3); GLOMERULAR FILTR. RATE CALC 96.0 mL/min (>90); GLUCOSE,RANDOM 122.0 mg/dL (70-105); SODIUM SERUM 138.0 mmol/L (136-145); UREA NITROGEN, BLOOD 28.0 mg/dL (7-18)
--- NOTE | 2025-01-12 20:00 | PN ---
[facility] PROGRESS NOTE Date Patient Seen: Jan 12, 2025 Time of Visit: 19:59 Supervising Physician: Dr. Monte PROBLEM LIST: COPD on exacerbation Atrial fibrillation from childhood Back pain due to a fracture in 1975 Myocardial infarction in 1995 Enlarged prostate INTERVAL HISTORY: Patient evaluated at bedside today, he is currently sitting in tripod position, on 3 L nasal cannula. Patient continues on Solu-Medrol 40 q.8 hours as well as antibiotics and nebulizer treatments as indicated for Chronic obstructive pulmonary disease. Patient is showing mild improvement today, expresses severe anxiety regarding the fact that he has been hospitalized for this long and wishes to go home today. I have expressed to the patient that this is unsafe at this time and he would likely come back to the hospital in worse condition if he were to leave before treatment was complete. Advised that we will do 6 minute walk with the patient today and evaluate him for home oxygen in order to expedite he has returned home. Patient is in agreement with the current medical treatment plan. Plan Pending 6 minute walk Continue with antibiotics Continue with steroids Solu-Medrol 40 mg q.8 hours IV push Continue with nebulizer treatment Continue supplemental O2 Continue cough symptomatic relief REVIEW OF SYSTEMS: 12 point ROS reviewed with patient. Pertinent positives mentioned above. Otherwise negative. PHYSICAL EXAM: GENERAL: alert, weak, awake oriented x 3 HEENT: EOMI, Sclera non icteric, moist mucosa NECK: Supple, no JVD, trachea midline LUNGS: Clear breath sounds bilaterally. No wheezes HEART: Regular rate and rhythm. Normal S1 and S2, without murmurs ABD: Abdomen soft, nontender. Bowel sounds present EXT: No clubbing cyanosis or edema NEURO: Alert and oriented to person, follows commands Vital Signs (last 8hr) Date Time Temp Pulse Resp B/P (MAP) Pulse Ox O2 Delivery O2 Flow Rate FiO2 01/12/25 19:48 97.5 77 16 146/90 96 Nasal Cannula 3.0 01/12/25 18:37 110 20 01/12/25 18:37 110 20 N/Cannula Low lpm 2.0 28 01/12/25 16:27 98.1 93 18 115/69 93 Nasal Cannula 3.0 LABS: Hematology Labs: Test 01/12/25 04:16 01/11/25 03:56 Range/Units White Blood Count 22.9 H 4.8-10.8 K/uL Red Blood Count 4.99 4.50-6.20 MIL/uL Hemoglobin 14.2 14.0-18.0 g/dL Hematocrit 42.4 42-54 % Mean Corpuscular Volume 85.0 79-99 fL Mean Corpuscular Hemoglobin 28.5 27.0-33.0 pg Mean Corpuscular Hemoglobin Concent 33.5 32.0-36.0 g/dL Red Cell Distribution Width 15.4 11.0-15.5 % Platelet Count 222 130-400 K/uL Mean Platelet Volume 10.1 7.5-10.5 fL Immature Granulocyte % (Auto) 0.6 0-1 % Neutrophils (%) (Auto) 91.3 H 40.0-77.0 % Lymphocytes (%) (Auto) 4.8 L 21.0-51.0 % Monocytes (%) (Auto) 3.2 3.0-13.0 % Eosinophils (%) (Auto) 0.0 0.0-8.0 % Basophils (%) (Auto) 0.1 0.0-5.0 % Neutrophils # (Auto) 20.9 H 1.8-7.7 K/uL Lymphocytes # (Auto) 1.1 1.0-4.8 K/uL Monocytes # (Auto) 0.7 0.1-1.0 K/uL Eosinophils # (Auto) 0.00 0.00-0.70 K/uL Basophils # (Auto) 0.03 0.00-0.20 K/uL Absolute Immature Granulocyte (auto 0.14 0-1 K/uL Nucleated Red Blood Cells 0.0 0.0-0.19 % White Cell Morphology Comment See comments Chemistry Labs: Test 01/12/25 04:16 01/11/25 03:56 Range/Units Sodium Level 138 136-145 mmol/L Potassium Level 4.1 3.5-5.1 mmol/L Chloride Level 103 101-111 mmol/L Carbon Dioxide Level 33 H 21-32 mmol/L Blood Urea Nitrogen 28 H 7-18 mg/dL Creatinine 0.8 0.5-1.3 mg/dL Glomerular Filtration Rate Calc 96 >90 mL/min Random Glucose 122 H 70-105 mg/dL Total Calcium 8.9 8.5-10.1 mg/dL C-Reactive Protein, Quantitative 10.60 H 0.5-3.0 mg/L DIAGNOSTICS / RADIOLOGY RESULTS: [ ] PLAN NEURO: Minimize central acting medications as possible. Maintain fall precautions, adequate lighting during the day PULMONARY: Supplemental 02 as needed. Maintain aspiration precautions at all times CARDIOVASCULAR: Follow hemodynamics. Vital signs per facility protocol GI & NUTRITION: Continue with nutritional support. Continue stool softeners and laxatives as needed. KIDNEYS & ELECTROLYTES: Strict monitoring of intake, output and overall fluid balance. Avoid nephrotoxic medications to the extent possible. Medications to be dosed according to renal function. Monitor electrolytes and replace as needed ENDOCRINE: Maintain blood glucose between 100-180 at all times. Hypoglycemia protocol in place INFECTIOUS DISEASE: Trend temperature, WBC and procalcitonin level Follow cultures, deescalate antibiotics as soon as possible. Panculture if new onset fever ONCOLOGY/HEMATOLOGY/COAGULATION: Monitor for s/s of bleeding Monitor hemoglobin, coagulation studies as needed SKIN: Pressure ulcer prevention per facility protocol Specialty mattress ORTHO/REHAB: Continue PT/OT Prophylaxis: Continue GI and DVT prophylaxis Code Status: Full Resuscitation Disposition: TBD Other: Total patient care time exceeds 35 minutes excluding all procedures. SAMMI PEARCE Jan 12, 2025 20:00
--- NOTE | 2025-01-12 20:16 | PN ---
[facility] PROGRESS NOTE Date of Service: Jan 12, 2025 Time of Service: 20:07 SUBJECTIVE: 69-year-old male came to the ED with a chief complaint of shortness of breath. The patient experienced shortness of breath that began gradually about a week ago. The patient reported that the symptoms worsened over the last 3-4 days, making it difficult to sleep, particularly when lying flat. The patient did not report any exposure to cold, dust, pets. The patient experienced the wheezing sounds that were constant in nature. The patient experienced fever intermittently, feeling colder than usual. Patient denied chest tightness, leg swelling, syncope, fever, chills, night sweats or recent hospital admission for similar reasons. The patient previously had the COPD suggested by his doctor. The patient also mentioned his history of chronic atrial fibrillation, back pain from a previous injury, and the inability to engage in physical activities due to back issues. His vitals appears to be normal except respiratory rate rate 25, BP 130/103. Labs revealed WBC 8.0, hemoglobin 16.7, hematocrit 49.5. Sodium 140, potassium 4.4, chloride1 not 2, bicarbonate 35, alkaline phosphatase 166, CRP 15.9, procalcitonin less than 0.05. ABG revealed PO2 64.2, O2 saturation 91.9. Pending urinalysis, respiratory culture with Gram stain. Chest x-ray revealed mild COPD. Serology is negative for COVID-19, influenza, group a Streptococcus. EKG revealed atrial fibrillation, aberrant conduction of supraventricular beats. Patient resumed on his home medications. 01/11/2025: Patient was seen bedside in room. Patient was, awake, and oriented. He stated that his shortness of breath was going down until today morning when it suddenly became worse. He states that the nebulization treatment he received in the morning improved the shortness of breath. Patient was seen by Pulmonary and critical Care Medicine who evaluated the patient and recommended to continue with the current treatment plan. Patient's vitals are stable with a blood pressure of 109/61 and a pulse rate of 70. 01/12/2025: Patient was seen bedside in the room. Patient was awake, alert, orientedx3. Today the patient feels better compared to yesterday. He is currently sitting in a tripod position, on3 L nasal cannula. Patient continues on Solu-Medrol 40 Q 8 hours as well as antibiotics and nebulizer treatment as indicated for COPD. Patient is showing mild improvement and expresses severe anxiety regarding the fact that he has been hospitalized for this long and wishes to go home today. His vitals are normal except blood pressure 146 /90. Labs revealed WBC trending up from 18.7-22.9. BUN , creatinine 0.8, random glucose 122. CRP is trending down from 15.9-10.6. REVIEW OF SYSTEMS CONSTITUTIONAL: Positive for intermittent fever. NEUROLOGICAL: Denies headache, amaurosis fugax, motor weakness, sensory deficit, vertigo/spinning sensation, gait abnormalities, or tremors. ENT: No hearing loss, otalgia, otorrhea, rhinitis, rhinorrhea, hoarseness, or sore throat. CARDIOVASCULAR: Positive for palpitations, history of atrial fibrillation. PULMONARY: Positive for shortness of breath and wheezing. Negative for chest tightness and cough SLEEP: Denies morning headaches, daytime somnolence or napping. Denies difficulty falling asleep, staying asleep, waking from sleep. Denies knowledge of snoring. GASTROINTESTINAL: Denies any type of dysphagia to either liquids or solids. Denies nausea, vomiting, pyrosis, early satiety, abdominal pain, diarrhea, constipation, or changes in stool consistency or caliber. Denies coffee-ground emesis, hematemesis, hematochezia, or melanotic stools. GENITOURINARY: Positive for frequent urination within incomplete voiding. Negative for dysuria ENDOCRINOLOGIC: Denies polyuria, polydipsia, polyphagia or heat/cold intolerances. HEMATOLOGIC: Denies thrombophilia/previous clots, or coagulopathy/bleeding disorders. ONCOLOGIC: Denies personal history of malignancy. DERMATOLOGIC: Denies rashes or pruritus. PSYCHIATRIC: Denies any suicidal or homicidal ideation. Denies hallucinations. PHYSICAL EXAM GENERAL APPEARANCE: The patient is awake, alert, and oriented, in mild cardiopulmonary distress NEUROLOGICAL: Cranial nerves II-XII grossly intact. Motor is 5/5 in bilateral upper and lower extremities proximal to distal. No sensory deficits. HEENT: Face is symmetric. Pupils are equal and reactive. Extraocular movements are intact. NECK: Supple. No JVD. No thyromegaly. No submental, submandibular, pre- /postauricular, occipital or supraclavicular lymphadenopathy. CHEST: Normal chest expansion. No Telemetry. LUNGS: Presence of rales, wheezing CARDIOVASCULAR: Irregularly irregular pulse S1 and S2 normal. No appreciable rubs, murmurs or gallops. ABDOMEN: Soft, nontender, and nondistended. There is no rebound, voluntary guarding, or rigidity. : EXTREMITIES: Non-edematous and not cyanotic. No clubbing. Good capillary refill. SKIN: No skin breakdown. Vital Signs (last 8hr) Date Time Temp Pulse Resp B/P (MAP) Pulse Ox O2 Delivery O2 Flow Rate FiO2 01/12/25 19:48 97.5 77 16 146/90 96 Nasal Cannula 3.0 01/12/25 18:37 110 20 01/12/25 18:37 110 20 N/Cannula Low lpm 2.0 28 01/12/25 16:27 98.1 93 18 115/69 93 Nasal Cannula 3.0 LABS: Laboratory: Test 01/12/25 04:16 01/11/25 03:56 01/11/25 02:59 Range/Units White Blood Count 22.9 H 4.8-10.8 K/uL Red Blood Count 4.99 4.50-6.20 MIL/uL Hemoglobin 14.2 14.0-18.0 g/dL Hematocrit 42.4 42-54 % Mean Corpuscular Volume 85.0 79-99 fL Mean Corpuscular Hemoglobin 28.5 27.0-33.0 pg Mean Corpuscular Hemoglobin Concent 33.5 32.0-36.0 g/dL Red Cell Distribution Width 15.4 11.0-15.5 % Platelet Count 222 130-400 K/uL Mean Platelet Volume 10.1 7.5-10.5 fL Immature Granulocyte % (Auto) 0.6 0-1 % Neutrophils (%) (Auto) 91.3 H 40.0-77.0 % Lymphocytes (%) (Auto) 4.8 L 21.0-51.0 % Monocytes (%) (Auto) 3.2 3.0-13.0 % Eosinophils (%) (Auto) 0.0 0.0-8.0 % Basophils (%) (Auto) 0.1 0.0-5.0 % Neutrophils # (Auto) 20.9 H 1.8-7.7 K/uL Lymphocytes # (Auto) 1.1 1.0-4.8 K/uL Monocytes # (Auto) 0.7 0.1-1.0 K/uL Eosinophils # (Auto) 0.00 0.00-0.70 K/uL Basophils # (Auto) 0.03 0.00-0.20 K/uL Absolute Immature Granulocyte (auto 0.14 0-1 K/uL Nucleated Red Blood Cells 0.0 0.0-0.19 % Sodium Level 138 136-145 mmol/L Potassium Level 4.1 3.5-5.1 mmol/L Chloride Level 103 101-111 mmol/L Carbon Dioxide Level 33 H 21-32 mmol/L Blood Urea Nitrogen 28 H 7-18 mg/dL Creatinine 0.8 0.5-1.3 mg/dL Glomerular Filtration Rate Calc 96 >90 mL/min Random Glucose 122 H 70-105 mg/dL Total Calcium 8.9 8.5-10.1 mg/dL White Cell Morphology Comment See comments C-Reactive Protein, Quantitative 10.60 H 0.5-3.0 mg/L Blood Gas Specimen Type Arterial Arterial Blood pH 7.445 7.350-7.450 Arterial Blood Partial Pressure CO2 33 L 35-48 mmHg Arterial Blood Partial Pressure O2 65.4 L 83.0-108.0 mmHg Arterial Blood HCO3 22.0 21.0-28.0 mmol/L Arterial Blood Oxygen Saturation 93.9 L 94.0-98.0 % Arterial Blood Base Excess -1.2 -2.0-3.0 mmol/L Blood Gas Temperature 37.0 35.5-37.0 CELSIUS Blood Gas Vent Mode RA ROOM AIR FiO2 21.0 % Blood Gas Specimen Comment RR RN Current Medications Medications (Trade) Dose Ordered Sig/Kamila Route PRN Reason Start Time Stop Time Status Last Admin Dose Admin Acetaminophen (TYLenol 325MG TAB) 650 mg Q4H PRN PO TEMPERATURE GREATER THAN 101.5 01/10/25 07:00 02/09/25 06:59 Atorvastatin Calcium (LIPItor 40MG) 80 mg HS PO 01/10/25 21:00 02/09/25 20:59 01/11/25 19:47 80 MG Azithromycin 250 ml @ 250 mls/hr Q24H IVPB 01/10/25 05:00 01/20/25 04:59 01/12/25 04:38 250 MLS/HR Benzonatate (Tessalon 100mg Caps) 200 mg TID PRN PO COUGH 01/10/25 07:00 02/09/25 06:59 Budesonide (Pulmicort 0.5 Mg/2ml) 0.5 mg BID IH 01/10/25 11:30 02/09/25 11:29 01/12/25 18:37 0.5 MG Citalopram Hydrobromide (CeleXA 20MG TAB) 20 mg DAILY PO 01/10/25 09:00 02/09/25 08:59 01/12/25 08:54 20 MG Famotidine (Pepcid 20mg Vial) 20 mg BID IV 01/10/25 09:00 01/10/25 07:33 DC Famotidine (Pepcid 20mg Tab) 20 mg BID PO 01/10/25 09:00 02/09/25 08:59 01/12/25 08:54 20 MG Gabapentin (NEURontin 100 mg CAP) 200 mg TID PO 01/11/25 09:00 02/10/25 08:59 01/11/25 19:47 200 MG Gabapentin (NEURontin 300 MG CAP) 600 mg TID PO 01/11/25 09:00 02/10/25 08:59 01/11/25 19:47 600 MG Home Med (Home Medication) (Gabapentin 800 MG) TID PO 01/10/25 09:00 01/11/25 08:00 DC Home Med (Home Medication) ([Vitamin D3] 1,000 UNITS) DAILY PO 01/10/25 09:00 02/09/25 08:59 Ipratropium Rougon (AtrovENT UD) 0.5 mg [id number] IH 01/10/25 10:00 02/09/25 09:59 01/12/25 18:36 0.5 MG Isosorbide Mononitrate (Imdur 30mg Sr) 30 mg DAILY PO 01/10/25 09:00 02/09/25 08:59 01/12/25 08:54 30 MG Magnesium Sulfate 50 ml @ 0 mls/hr PROTOCOL IV 01/10/25 05:00 01/10/25 07:27 DC Magnesium Sulfate 50 ml @ 0 mls/hr PROTOCOL PRN IV mgprotocol 01/10/25 07:00 02/09/25 06:59 Methylprednisolone Sodium Succinate (Solu-medROL 40MG) 40 mg Q8H IVP 01/11/25 09:00 02/10/25 08:59 01/12/25 18:14 40 MG Methylprednisolone Sodium Succinate (Solu-medROL 40MG) 60 mg Q6H IVP 01/10/25 11:30 01/11/25 09:01 DC 01/11/25 05:05 60 MG Metoprolol Succinate (TopROL XL) 50 mg BID PO 01/10/25 09:00 02/09/25 08:59 01/12/25 08:54 50 MG Ondansetron HCl (zoFRAN 4MG INJ) 4 mg Q6H PRN IVP NAUSEA/VOMITING 01/10/25 07:00 02/09/25 06:59 Potassium Chloride 100 ml @ 50 mls/hr AD PRN IV POTASSIUM PROTOCOL 01/10/25 07:00 02/09/25 06:59 Potassium Chloride 100 ml @ 100 mls/hr AD PRN IV POTASSIUM PROTOCOL 01/10/25 07:00 02/09/25 06:59 Potassium Chloride (K-Dur/Klor-Con 20meq) 20 meq AD PRN PO POTASSIUM PROTOCOL 01/10/25 07:00 02/09/25 06:59 Potassium Chloride (KCl 10% Elixir 20meq/15ml) 20 meq AD PRN PO POTASSIUM PROTOCOL 01/10/25 07:00 02/09/25 06:59 Prednisone (deltaSONE/ oraSONE 20MG TAB) 40 mg DAILY PO 01/11/25 09:00 01/10/25 11:32 DC Rivaroxaban (Xarelto) 20 mg PCLUNCH PO 01/10/25 13:00 02/09/25 12:59 01/12/25 13:18 20 MG Tramadol HCl (UltRAM) 50 mg QID PRN PO MODERATE PAIN (4-6) 01/10/25 07:30 01/15/25 07:29 01/12/25 15:11 50 MG DIAGNOSTICS / RADIOLOGY: [ ] ASSESSMENT: COPD exacerbation Atrial fibrillation Benign prostatic hyperplasia PLAN: COPD exacerbation - beyond inpatient Services gave the following recommendations were the patient Plan Pending 6 minute walk Continue with antibiotics Continue with steroids Solu-Medrol 40 mg q.8 hours IV push Continue with nebulizer treatment Continue supplemental oxygen Continue cough symptomatic relief -CT chest revealed diffuse edematous changes of the left lung with multiple varying sizes and also evidence of bullous emphysema. - Atrial fibrillation - -home medications included metoprolol. -continue home meds. -patient placed on telemetry. -continue to monitor. Patient education Advised the patient to smoking cessation to improve respiratory health GI prophylaxis with Pepcid 20 mg. GI prophylaxis with Xarelto. ATTESTATION BY PHYSICIAN I have seen and examined the patient. I reviewed the documentation, medical decision making, and treatment plan as noted by the mid-level provider above. I agree with the findings and plan of care. bobby Guzmán MD, HARSHA MD Jan 12, 2025 20:16
--- NOTE | 2025-01-12 23:53 | HMCSR ---
APPROVED REPORT EXAM: Two-dimensional and M-mode echocardiogram with Doppler and color Doppler. INDICATION ICD: Cardiac baseline function. 2D Dimensions RVDd3.8 cmLVEF(%)43.1 (>50%)LVED Vol(simp.)95.0 mL IVSd0.8 (0.7-1.1cm)FS(%)22 %LVES Vol(simp.)41.0 mL LVDd5.1 (3.8-5.6cm)LA (2D)5.8 (1.6-4.0cm)LVEF(%, simp.)57 % PWd1.2 (0.7-1.1cm)Ao Root(2D)3.6 (2.0-3.7cm)LA ESV INDEX (BP)79.47 mL/m2 IVSs0.9 cmLVOT diam2.5 (1.8-2.4cm) LVDs4.0 (2.5-4.0cm)IVC diam2.5 cm PWs1.5 cm Deformation Strain Apical 4-13.8 % Apical 2-14.7 % Apical 3-15.4 % Global Strain-14.6 % M-Mode Dimensions EPSS0.5 cm LA (MM)5.9 (1.6-4.0cm) Ao Root(MM)2.8 (2.0-3.7cm) Aortic Valve AoV Vmax1.0 m/Camila Peak GR4.4 mmHgLVOT Vmax0.8 m/s AoV VTI0.1 mAo Mean GR2.5 mmHgLVOT VTI0.16 m JAYDA (VMAX)4.03 cm2AVA (VTI) 4.7 cm2 Mitral Valve MV E Pvcg626.3 cm/sDECEL Uuxt046 ms MV A Vmax16.4 cm/sP 1/2 T53 ms E/A ratio7.4MVA (PHT)4.3 cm2 TDI E/E' Inxomm22.6E/E' Duripwh83.0 Medial E' Peak V10.46 cm/sLateral E' Peak V8.64 cm/s Pulmonary Valve PV Vmax0.9 m/sPV VTI0.17 mPV Mean GR1.7 mmHg PV Peak GR2.9 mmHgPI End Clementine. Costa 164.0 cm/s Tricuspid Valve TR Vmax4.0 m/sRAP (EST) 8 rdFkIAVU56.5 mmHg TR Peak GR65.5 mmHg Left Ventricle The left ventricle is normal size. No regional wall motion abnormalities noted. Mild concentric left ventricular hypertrophy. Left ventricular systolic function is normal, estimated LVEF 55%. Indetermin ate diastolic dysfunction. Right Ventricle The right ventricle is dilated. The right ventricular systolic function is normal. Atria The left atrium is severely dilated, 82 mL/m. The right atrium is dilated. Aortic Valve Aortic valve trileaflet. The leaflets are mildly thickened and calcified. Trace aortic regurgitation. There is no aortic valvular stenosis. Mitral Valve The mitral valve is normal in structure. The leaflets are mildly thickened and calcified. Mild mitral regurgitation. There is no mitral valve stenosis. Tricuspid Valve The tricuspid valve is normal in structure. Trace tricuspid regurgitation. RVSP is normal. Pulmonic Valve Pulmonic valve is not well visualized. Great Vessels The aortic root is normal in size. IVC is dilated and collapses >50% with inspiration. Pericardium There is no pericardial effusion. Other Information Quality : Technically difficult study due to body habitus Conclusion The left atrium is severely dilated, 82 mL/m. The right atrium is dilated. The right ventricle is dilated. Mild concentric left ventricular hypertrophy. No regional wall motion abnormalities noted. Left ventricular systolic function is normal, estimated LVEF 55%. Indeterminate diastolic dysfunction. Trace aortic regurgitation. Mild mitral regurgitation. Trace tricuspid regurgitation. PASP is normal. There is no pericardial effusion.
[2025-01-13] VITALS (10 sets, daily range): BP systolic 127–139; BP diastolic 82–96; PULSE 73–89; RESP 16–22; TEMP 97.7–98.1; O2SAT 95–98
[2025-01-13 04:11] LABS: ABG BASE EXCESS 3.2 mmol/L (-2.0-3.0); ABG HCO3 29.2 mmol/L (21.0-28.0); ABG OXYGEN SATURATION 97.1 % (94.0-98.0); ABG PCO2 50 mmHg (35-48); ABG PH 7.388 (7.350-7.450); DEVICE COMMENT LB RN PATRIK; PO2, ARTERIAL BG 95.4 mmHg (83.0-108.0); TEMPERATURE, CELSIUS BG 37.0 CELSIUS (35.5-37.0); VENT MODE, BG NC (ROOM AIR)
[2025-01-13 05:27] LABS: IMMATURE GRANULOCYTE ABSOLUTE 0.11 K/uL (0-1); NUCLEATED RED BLOOD CELLS 0.0 % (0.0-0.19); PLATELET COUNT (AUTO) 212 K/uL (130-400); RED BLOOD CELL COUNT(AUTO) 5.05 MIL/uL (4.50-6.20); RED CELL DISTRIBUTION WIDTH 15.3 % (11.0-15.5); WHITE BLOOD COUNT (AUTO) 15.7 K/uL (4.8-10.8)
[2025-01-13 05:49] LABS: CREATININE 0.9 mg/dL (0.5-1.3); GLOMERULAR FILTR. RATE CALC 92.0 mL/min (>90); GLUCOSE,RANDOM 109.0 mg/dL (70-105); SODIUM SERUM 139.0 mmol/L (136-145); UREA NITROGEN, BLOOD 29.0 mg/dL (7-18)
--- NOTE | 2025-01-13 08:45 | NUR ---
MEIDCATION REFUSAL PATIENT REFUSED TO TAKE MORNING DOSE OF GABAPENTIN FROM HOSPITAL SUPPLY. PATIENT STATES THAT HE WAS TOLD THAT HE COULD TAKE FROM HOME SUPPLY TO LESSEN AMOUNT OF TABLETS TAKEN. PATIENT TOOK MEDICATION FROM HOME SUPPLY. EDUCATION PROVIDED. CHARGE NURSE INFORMED.
--- NOTE | 2025-01-13 14:58 | PN ---
[facility] PROGRESS NOTE Date Patient Seen: Jan 13, 2025 Time of Visit: 14:55 Supervising Physician: Dr. Lynch PROBLEM LIST: COPD on exacerbation Atrial fibrillation from childhood Back pain due to a fracture in 1975 Myocardial infarction in 1995 Enlarged prostate INTERVAL HISTORY: Patient evaluated at bedside, remains on 3 L nasal cannula. Patient is kimberly tated, states that he wants to go home. Advised that at this time it is believed that this is a high-risk discharge, patient expressed understanding. Patient attempted 6 minute walk today with Respiratory therapy but due to his chronic lumbar pain was unable to complete the walk, and only went down to 93% on saturations. Requested physical therapy to work with the patient off nasal cannula and monitor O2. Patient has been on room air satting at 97% at rest and 91-92% on exertion. Discussion with case management regarding home O2, patient is cleared for discharge if he remains above 90% on room air as he has a chronic CO2 retainer it is unexpected for him to be at above 97% baseline. He continues on Solu-Medrol 40 mg q.8 hours at this time, patient will need steroid taper as outpatient. If patient remains hospitalized we will decrease Solu-Medrol tomorrow to further prepare him for discharge. Smoking cessation discussed with patient and at bedside. His emphysema is severe with significant loss of lung function. It is recommended that the patient follow closely with Pulmonary Medicine as outpatient. Plan Pending 6 minute walk Continue with antibiotics Continue with steroids Solu-Medrol 40 mg q.8 hours IV push Continue with nebulizer treatment Continue supplemental O2 Continue cough symptomatic relief REVIEW OF SYSTEMS: 12 point ROS reviewed with patient. Pertinent positives mentioned above. Otherwise negative. PHYSICAL EXAM: GENERAL: alert, weak, awake oriented x 3 HEENT: EOMI, Sclera non icteric, moist mucosa NECK: Supple, no JVD, trachea midline LUNGS: Clear breath sounds bilaterally. No wheezes HEART: Regular rate and rhythm. Normal S1 and S2, without murmurs ABD: Abdomen soft, nontender. Bowel sounds present EXT: No clubbing cyanosis or edema NEURO: Alert and oriented to person, follows commands Vital Signs (last 8hr) Date Time Temp Pulse Resp B/P (MAP) Pulse Ox O2 Delivery O2 Flow Rate FiO2 01/13/25 12:02 97.9 78 18 132/96 94 Nasal Cannula 3.0 01/13/25 11:03 85 22 9/1/25 11:03 18 N/Cannula Low lpm 2.0 28 01/13/25 08:36 97 Nasal Cannula* 3 32 01/13/25 07:58 97.9 76 18 129/92 97 Nasal Cannula LABS: Hematology Labs: Test 01/13/25 04:44 Range/Units White Blood Count 15.7 H 4.8-10.8 K/uL Red Blood Count 5.05 4.50-6.20 MIL/uL Hemoglobin 14.4 14.0-18.0 g/dL Hematocrit 43.5 42-54 % Mean Corpuscular Volume 86.1 79-99 fL Mean Corpuscular Hemoglobin 28.5 27.0-33.0 pg Mean Corpuscular Hemoglobin Concent 33.1 32.0-36.0 g/dL Red Cell Distribution Width 15.3 11.0-15.5 % Platelet Count 212 130-400 K/uL Mean Platelet Volume 10.3 7.5-10.5 fL Immature Granulocyte % (Auto) 0.7 0-1 % Neutrophils (%) (Auto) 85.9 H 40.0-77.0 % Lymphocytes (%) (Auto) 8.2 L 21.0-51.0 % Monocytes (%) (Auto) 5.1 3.0-13.0 % Eosinophils (%) (Auto) 0.0 0.0-8.0 % Basophils (%) (Auto) 0.1 0.0-5.0 % Neutrophils # (Auto) 13.5 H 1.8-7.7 K/uL Lymphocytes # (Auto) 1.3 1.0-4.8 K/uL Monocytes # (Auto) 0.8 0.1-1.0 K/uL Eosinophils # (Auto) 0.00 0.00-0.70 K/uL Basophils # (Auto) 0.01 0.00-0.20 K/uL Absolute Immature Granulocyte (auto 0.11 0-1 K/uL Nucleated Red Blood Cells 0.0 0.0-0.19 % Chemistry Labs: Test 01/13/25 04:44 Range/Units Sodium Level 139 136-145 mmol/L Potassium Level 4.3 3.5-5.1 mmol/L Chloride Level 102 101-111 mmol/L Carbon Dioxide Level 34 H 21-32 mmol/L Blood Urea Nitrogen 29 H 7-18 mg/dL Creatinine 0.9 0.5-1.3 mg/dL Glomerular Filtration Rate Calc 92 >90 mL/min Random Glucose 109 H 70-105 mg/dL Total Calcium 8.7 8.5-10.1 mg/dL B-Type Natriuretic Peptide 97 0-100 pg/mL Coagulation Labs: Test 01/13/25 11:04 Range/Units D-Dimer Quantitative (PE/DVT) 2754 *H 0-500 ng/mL DIAGNOSTICS / RADIOLOGY RESULTS: [ ] PLAN NEURO: Minimize central acting medications as possible. Maintain fall precautions, adequate lighting during the day PULMONARY: Supplemental 02 as needed. Maintain aspiration precautions at all times CARDIOVASCULAR: Follow hemodynamics. Vital signs per facility protocol GI & NUTRITION: Continue with nutritional support. Continue stool softeners and laxatives as needed. KIDNEYS & ELECTROLYTES: Strict monitoring of intake, output and overall fluid balance. Avoid nephrotoxic medications to the extent possible. Medications to be dosed according to renal function. Monitor electrolytes and replace as needed ENDOCRINE: Maintain blood glucose between 100-180 at all times. Hypoglycemia protocol in place INFECTIOUS DISEASE: Trend temperature, WBC and procalcitonin level Follow cultures, deescalate antibiotics as soon as possible. Panculture if new onset fever ONCOLOGY/HEMATOLOGY/COAGULATION: Monitor for s/s of bleeding Monitor hemoglobin, coagulation studies as needed SKIN: Pressure ulcer prevention per facility protocol Specialty mattress ORTHO/REHAB: Continue PT/OT Prophylaxis: Continue GI and DVT prophylaxis Code Status: Full Resuscitation Disposition: TBD Other: Total patient care time exceeds 35 minutes excluding all procedures. SAMMI PEARCE Jan 13, 2025 14:58
--- NOTE | 2025-01-13 15:08 | PN ---
[facility] PROGRESS NOTE Date of Service: Jan 13, 2025 Time of Service: 15:05 SUBJECTIVE: 69-year-old male came to the ED with a chief complaint of shortness of breath. The patient experienced shortness of breath that began gradually about a week ago. The patient reported that the symptoms worsened over the last 3-4 days, making it difficult to sleep, particularly when lying flat. The patient did not report any exposure to cold, dust, pets. The patient experienced the wheezing sounds that were constant in nature. The patient experienced fever intermittently, feeling colder than usual. Patient denied chest tightness, leg swelling, syncope, fever, chills, night sweats or recent hospital admission for similar reasons. The patient previously had the COPD suggested by his doctor. The patient also mentioned his history of chronic atrial fibrillation, back pain from a previous injury, and the inability to engage in physical activities due to back issues. His vitals appears to be normal except respiratory rate rate 25, BP 130/103. Labs revealed WBC 8.0, hemoglobin 16.7, hematocrit 49.5. Sodium 140, potassium 4.4, chloride1 not 2, bicarbonate 35, alkaline phosphatase 166, CRP 15.9, procalcitonin less than 0.05. ABG revealed PO2 64.2, O2 saturation 91.9. Pending urinalysis, respiratory culture with Gram stain. Chest x-ray revealed mild COPD. Serology is negative for COVID-19, influenza, group a Streptococcus. EKG revealed atrial fibrillation, aberrant conduction of supraventricular beats. Patient resumed on his home medications. 01/11/2025: Patient was seen bedside in room. Patient was, awake, and oriented. He stated that his shortness of breath was going down until today morning when it suddenly became worse. He states that the nebulization treatment he received in the morning improved the shortness of breath. Patient was seen by Pulmonary and critical Care Medicine who evaluated the patient and recommended to continue with the current treatment plan. Patient's vitals are stable with a blood pressure of 109/61 and a pulse rate of 70. 01/12/2025: Patient was seen bedside in the room. Patient was awake, alert, orientedx3. Today the patient feels better compared to yesterday. He is currently sitting in a tripod position, on3 L nasal cannula. Patient continues on Solu-Medrol 40 Q 8 hours as well as antibiotics and nebulizer treatment as indicated for COPD. Patient is showing mild improvement and expresses severe anxiety regarding the fact that he has been hospitalized for this long and wishes to go home today. His vitals are normal except blood pressure 146 /90. Labs revealed WBC trending up from 18.7-22.9. BUN , creatinine 0.8, random glucose 122. CRP is trending down from 15.9-10.6. 01/13/2025: Patient was seen bedside in room 409. His vitals are stable, blood pressure 127/52, respiratory rate 16, saturating 96% with 3 L nasal cannula. He says his SOB has been improved gradually since admission but complains of cough. Patient attempted 6 minute walk today with respiratory therapy but due to his chronic lumbar pain was unable to complete the walk. Requested physical therapy to work with the patient off nasal cannula and monitor O2, discussion with case management regarding home O2 therapy, preparation for discharge. Patients D- dimer at 2754 this morning, ordered CT scan to rule out pulmonary embolism. Patient is continued on Solu-Medrol 40 mg Q 8, azithromycin 250 mL IV Q 24 H. smoking cessation discussed with patient and at bedside. REVIEW OF SYSTEMS CONSTITUTIONAL: Positive for intermittent fever. NEUROLOGICAL: Denies headache, amaurosis fugax, motor weakness, sensory deficit, vertigo/spinning sensation, gait abnormalities, or tremors. ENT: No hearing loss, otalgia, otorrhea, rhinitis, rhinorrhea, hoarseness, or sore throat. CARDIOVASCULAR: Positive for palpitations, history of atrial fibrillation. PULMONARY: Positive for shortness of breath, cough and wheezing. Negative for chest tightness SLEEP: Denies morning headaches, daytime somnolence or napping. Denies difficulty falling asleep, staying asleep, waking from sleep. Denies knowledge of snoring. GASTROINTESTINAL: Denies any type of dysphagia to either liquids or solids. Denies nausea, vomiting, pyrosis, early satiety, abdominal pain, diarrhea, constipation, or changes in stool consistency or caliber. Denies coffee-ground emesis, hematemesis, hematochezia, or melanotic stools. GENITOURINARY: Positive for frequent urination within incomplete voiding. Negative for dysuria ENDOCRINOLOGIC: Denies polyuria, polydipsia, polyphagia or heat/cold intolerances. HEMATOLOGIC: Denies thrombophilia/previous clots, or coagulopathy/bleeding disorders. ONCOLOGIC: Denies personal history of malignancy. DERMATOLOGIC: Denies rashes or pruritus. PSYCHIATRIC: Denies any suicidal or homicidal ideation. Denies hallucinations. PHYSICAL EXAM GENERAL APPEARANCE: The patient is awake, alert, and oriented, in mild cardiopulmonary distress NEUROLOGICAL: Cranial nerves II-XII grossly intact. Motor is 5/5 in bilateral upper and lower extremities proximal to distal. No sensory deficits. HEENT: Face is symmetric. Pupils are equal and reactive. Extraocular movements are intact. NECK: Supple. No JVD. No thyromegaly. No submental, submandibular, pre- /postauricular, occipital or supraclavicular lymphadenopathy. CHEST: Normal chest expansion. No Telemetry. LUNGS: Presence of rales, wheezing CARDIOVASCULAR: Irregularly irregular pulse S1 and S2 normal. No appreciable rubs, murmurs or gallops. ABDOMEN: Soft, nontender, and nondistended. There is no rebound, voluntary guarding, or rigidity. : EXTREMITIES: Non-edematous and not cyanotic. No clubbing. Good capillary refill. SKIN: No skin breakdown. Vital Signs (last 8hr) Date Time Temp Pulse Resp B/P (MAP) Pulse Ox O2 Delivery O2 Flow Rate FiO2 01/13/25 12:02 97.9 78 18 132/96 94 Nasal Cannula 3.0 01/13/25 11:03 85 22 01/13/25 11:03 18 N/Cannula Low lpm 2.0 28 01/13/25 08:36 97 Nasal Cannula* 3 32 01/13/25 07:58 97.9 76 18 129/92 97 Nasal Cannula LABS: Laboratory: Test 01/13/25 11:04 01/13/25 04:44 01/13/25 04:09 Range/Units D-Dimer Quantitative (PE/DVT) 2754 *H 0-500 ng/mL White Blood Count 15.7 H 4.8-10.8 K/uL Red Blood Count 5.05 4.50-6.20 MIL/uL Hemoglobin 14.4 14.0-18.0 g/dL Hematocrit 43.5 42-54 % Mean Corpuscular Volume 86.1 79-99 fL Mean Corpuscular Hemoglobin 28.5 27.0-33.0 pg Mean Corpuscular Hemoglobin Concent 33.1 32.0-36.0 g/dL Red Cell Distribution Width 15.3 11.0-15.5 % Platelet Count 212 130-400 K/uL Mean Platelet Volume 10.3 7.5-10.5 fL Immature Granulocyte % (Auto) 0.7 0-1 % Neutrophils (%) (Auto) 85.9 H 40.0-77.0 % Lymphocytes (%) (Auto) 8.2 L 21.0-51.0 % Monocytes (%) (Auto) 5.1 3.0-13.0 % Eosinophils (%) (Auto) 0.0 0.0-8.0 % Basophils (%) (Auto) 0.1 0.0-5.0 % Neutrophils # (Auto) 13.5 H 1.8-7.7 K/uL Lymphocytes # (Auto) 1.3 1.0-4.8 K/uL Monocytes # (Auto) 0.8 0.1-1.0 K/uL Eosinophils # (Auto) 0.00 0.00-0.70 K/uL Basophils # (Auto) 0.01 0.00-0.20 K/uL Absolute Immature Granulocyte (auto 0.11 0-1 K/uL Nucleated Red Blood Cells 0.0 0.0-0.19 % Sodium Level 139 136-145 mmol/L Potassium Level 4.3 3.5-5.1 mmol/L Chloride Level 102 101-111 mmol/L Carbon Dioxide Level 34 H 21-32 mmol/L Blood Urea Nitrogen 29 H 7-18 mg/dL Creatinine 0.9 0.5-1.3 mg/dL Glomerular Filtration Rate Calc 92 >90 mL/min Random Glucose 109 H 70-105 mg/dL Total Calcium 8.7 8.5-10.1 mg/dL B-Type Natriuretic Peptide 97 0-100 pg/mL Blood Gas Specimen Type Arterial Arterial Blood pH 7.388 7.350-7.450 Arterial Blood Partial Pressure CO2 50 H 35-48 mmHg Arterial Blood Partial Pressure O2 95.4 83.0-108.0 mmHg Arterial Blood HCO3 29.2 H 21.0-28.0 mmol/L Arterial Blood Oxygen Saturation 97.1 94.0-98.0 % Arterial Blood Base Excess 3.2 H -2.0-3.0 mmol/L Blood Gas Temperature 37.0 35.5-37.0 CELSIUS Blood Gas Flow-by 2.00 0.00-15.00 L/min Blood Gas Vent Mode NC ROOM AIR FiO2 28.0 % Blood Gas Specimen Comment LB RN KATE Current Medications Medications (Trade) Dose Ordered Sig/Kamila Route PRN Reason Start Time Stop Time Status Last Admin Dose Admin Acetaminophen (TYLenol 325MG TAB) 650 mg Q4H PRN PO TEMPERATURE GREATER THAN 101.5 01/10/25 07:00 02/09/25 06:59 Atorvastatin Calcium (LIPItor 40MG) 80 mg HS PO 01/10/25 21:00 02/09/25 20:59 01/12/25 20:38 80 MG Azithromycin 250 ml @ 250 mls/hr Q24H IVPB 01/10/25 05:00 01/20/25 04:59 01/13/25 05:24 250 MLS/HR Benzonatate (Tessalon 100mg Caps) 200 mg TID PRN PO COUGH 01/10/25 07:00 02/09/25 06:59 Budesonide (Pulmicort 0.5 Mg/2ml) 0.5 mg BID IH 01/10/25 11:30 02/09/25 11:29 01/13/25 07:09 0.5 MG Ceftriaxone Sodium (Rocephin 2gm Inj) 2 gm Q24H IVPB 01/13/25 15:00 01/23/25 14:59 UNV Citalopram Hydrobromide (CeleXA 20MG TAB) 20 mg DAILY PO 01/10/25 09:00 02/09/25 08:59 01/13/25 08:30 20 MG Famotidine (Pepcid 20mg Vial) 20 mg BID IV 01/10/25 09:00 01/10/25 07:33 DC Famotidine (Pepcid 20mg Tab) 20 mg BID PO 01/10/25 09:00 02/09/25 08:59 01/13/25 08:30 20 MG Gabapentin (NEURontin 100 mg CAP) 200 mg TID PO 01/11/25 09:00 02/10/25 08:59 01/11/25 19:47 200 MG Gabapentin (NEURontin 300 MG CAP) 600 mg TID PO 01/11/25 09:00 02/10/25 08:59 01/11/25 19:47 600 MG Home Med (Home Medication) (Gabapentin 800 MG) TID PO 01/10/25 09:00 01/11/25 08:00 DC Home Med (Home Medication) ([Vitamin D3] 1,000 UNITS) DAILY PO 01/10/25 09:00 02/09/25 08:59 Ipratropium [place] (AtrovENT UD) 0.5 mg [id number] IH 01/10/25 10:00 01/13/25 10:36 DC 01/13/25 06:52 0.5 MG Ipratropium [place] (AtrovENT UD) 0.5 mg [id number] IH 01/13/25 12:00 02/09/25 09:59 Isosorbide Mononitrate (Imdur 30mg Sr) 30 mg DAILY PO 01/10/25 09:00 02/09/25 08:59 01/13/25 08:31 30 MG Magnesium Sulfate 50 ml @ 0 mls/hr PROTOCOL IV 01/10/25 05:00 01/10/25 07:27 DC Magnesium Sulfate 50 ml @ 0 mls/hr PROTOCOL PRN IV mgprotocol 01/10/25 07:00 02/09/25 06:59 Methylprednisolone Sodium Succinate (Solu-medROL 40MG) 40 mg Q8H IVP 01/11/25 09:00 02/10/25 08:59 01/13/25 08:31 40 MG Methylprednisolone Sodium Succinate (Solu-medROL 40MG) 60 mg Q6H IVP 01/10/25 11:30 01/11/25 09:01 DC 01/11/25 05:05 60 MG Metoprolol Succinate (TopROL XL) 50 mg BID PO 01/10/25 09:00 02/09/25 08:59 01/13/25 08:31 50 MG Ondansetron HCl (zoFRAN 4MG INJ) 4 mg Q6H PRN IVP NAUSEA/VOMITING 01/10/25 07:00 02/09/25 06:59 Potassium Chloride 100 ml @ 50 mls/hr AD PRN IV POTASSIUM PROTOCOL 01/10/25 07:00 02/09/25 06:59 Potassium Chloride 100 ml @ 100 mls/hr AD PRN IV POTASSIUM PROTOCOL 01/10/25 07:00 01/13/25 07:16 DC Potassium Chloride (K-Dur/Klor-Con 20meq) 20 meq AD PRN PO POTASSIUM PROTOCOL 01/10/25 07:00 02/09/25 06:59 Potassium Chloride (KCl 10% Elixir 20meq/15ml) 20 meq AD PRN PO POTASSIUM PROTOCOL 01/10/25 07:00 02/09/25 06:59 Prednisone (deltaSONE/ oraSONE 20MG TAB) 40 mg DAILY PO 01/11/25 09:00 01/10/25 11:32 DC Rivaroxaban (Xarelto) 20 mg PCLUNCH PO 01/10/25 13:00 02/09/25 12:59 01/12/25 13:18 20 MG Tramadol HCl (UltRAM) 50 mg QID PRN PO MODERATE PAIN (4-6) 01/10/25 07:30 01/15/25 07:29 01/13/25 08:58 50 MG DIAGNOSTICS / RADIOLOGY: [ PATIENT: MELISSA MARIN MR#: [id number] : 1955 SEX: M AGE: 69 LOCATION: [facility] ORDER 1307 STATUS: ADM IN REPORT#: [id number] SERVICE 0930 REASON: baseline cardiac function , orthopnea ORDERING PHYSICIAN: EVIE FONTENOT MD PROCEDURE: ECHO CMP - ECHO 2-D COMPLETE APPROVED REPORT EXAM: Two-dimensional and M-mode echocardiogram with Doppler and color Doppler. INDICATION ICD: Cardiac baseline function. 2D Dimensions RVDd 3.8 cm LVEF(%) 43.1 (>50%) LVED Vol(simp.) 95.0 mL IVSd 0.8 (0.7-1.1cm) FS(%) 22 % LVES Vol(simp.) 41.0 mL LVDd 5.1 (3.8-5.6cm) LA (2D) 5.8 (1.6-4.0cm) LVEF(%, simp.) 57 % PWd 1.2 (0.7-1.1cm) Ao Root(2D) 3.6 (2.0-3.7cm) LA ESV INDEX (BP) 79.47 mL/m2 IVSs 0.9 cm LVOT diam 2.5 (1.8-2.4cm) LVDs 4.0 (2.5-4.0cm) IVC diam 2.5 cm PWs 1.5 cm Deformation Strain Apical 4 -13.8 % Apical 2 -14.7 % Apical 3 -15.4 % Global Strain -14.6 % M-Mode Dimensions EPSS 0.5 cm LA (MM) 5.9 (1.6-4.0cm) Ao Root(MM) 2.8 (2.0-3.7cm) Aortic Valve AoV Vmax 1.0 m/s Ao Peak GR 4.4 mmHg LVOT Vmax 0.8 m/s AoV VTI 0.1 m Ao Mean GR 2.5 mmHg LVOT VTI 0.16 m JAYDA (VMAX) 4.03 cm2 JAYDA (VTI) 4.7 cm2 Mitral Valve MV E Vmax 121.3 cm/s DECEL Time 130 ms MV A Vmax 16.4 cm/s P 1/2 T 53 ms E/A ratio 7.4 MVA (PHT) 4.3 cm2 TDI E/E' Medial 11.6 E/E' Lateral 14.0 Medial E' Peak V 10.46 cm/s Lateral E' Peak V 8.64 cm/s Pulmonary Valve PV Vmax 0.9 m/s PV VTI 0.17 m PV Mean GR 1.7 mmHg PV Peak GR 2.9 mmHg PI End Clementine. Costa 164.0 cm/s Tricuspid Valve TR Vmax 4.0 m/s RAP (EST) 8 mmHg RVSP 73.5 mmHg TR Peak GR 65.5 mmHg Left Ventricle The left ventricle is normal size. No regional wall motion abnormalities noted. Mild concentric left ventricular hypertrophy. Left ventricular systolic function is normal, estimated LVEF 55%. Indeterminate diastolic dysfunction. Right Ventricle The right ventricle is dilated. The right ventricular systolic function is normal. Atria The left atrium is severely dilated, 82 mL/m. The right atrium is dilated. Aortic Valve Aortic valve trileaflet. The leaflets are mildly thickened and calcified. Trace aortic regurgitation. There is no aortic valvular stenosis. Mitral Valve The mitral valve is normal in structure. The leaflets are mildly thickened and calcified. Mild mitral regurgitation. There is no mitral valve stenosis. Tricuspid Valve The tricuspid valve is normal in structure. Trace tricuspid regurgitation. RVSP is normal. Pulmonic Valve Pulmonic valve is not well visualized. Great Vessels The aortic root is normal in size. IVC is dilated and collapses >50% with inspiration. Pericardium There is no pericardial effusion. Other Information Quality : Technically difficult study due to body habitus Conclusion The left atrium is severely dilated, 82 mL/m. The right atrium is dilated. The right ventricle is dilated. Mild concentric left ventricular hypertrophy. No regional wall motion abnormalities noted. Left ventricular systolic function is normal, estimated LVEF 55%. Indeterminate diastolic dysfunction. Trace aortic regurgitation. Mild mitral regurgitation. Trace tricuspid regurgitation. PASP is normal. There is no pericardial effusion. DICTATED BY: LUCHO FUNES MD DATE: 01/12/25 1238 ELECTRONICALLY SIGNED BY: LUCHO FUNES MD DATE: 01/12/25 1338 ] ASSESSMENT: COPD exacerbation Atrial fibrillation Benign prostatic hyperplasia probable PE PLAN: COPD exacerbation - beyond inpatient Services gave the following recommendations were the patient Plan Pending 6 minute walk Continue with antibiotics Continue with steroids Solu-Medrol 40 mg q.8 hours IV push Continue with nebulizer treatment Continue supplemental oxygen Continue cough symptomatic relief -CT chest revealed diffuse edematous changes of the left lung with multiple varying sizes and also evidence of bullous emphysema. Probable PE -patient D-Dimer at 2754 this morning -follow up with CT scan to rule out PE -plan for discharge after ruling out PE Atrial fibrillation -home medications included metoprolol. -continue xarelto for DVT prophylaxis -patient placed on telemetry. -continue to monitor. Patient education Advised the patient to smoking cessation to improve respiratory health Discussion with case management for discharge preparation. GI prophylaxis with Pepcid 20 mg. ATTESTATION BY PHYSICIAN I have seen and examined the patient. I reviewed the documentation, medical decision making, and treatment plan as noted by the resident provider above. I agree with the findings and plan of care. Osmar Dawson MD, ADIL SHAH QUADRI MD Jan 13, 2025 15:08
[2025-01-13] MEDS ORDERED: IOHEXOL 350 MG/ML 100ML INFUS..BTL IV ONE (16:42)
[2025-01-14] VITALS (13 sets, daily range): BP systolic 119–145; BP diastolic 66–102; PULSE 69–89; RESP 15–22; TEMP 97.5–98.1; O2SAT 95–98
[2025-01-14 04:53] LABS: IMMATURE GRANULOCYTE ABSOLUTE 0.15 K/uL (0-1); NUCLEATED RED BLOOD CELLS 0.0 % (0.0-0.19); PLATELET COUNT (AUTO) 231 K/uL (130-400); RED BLOOD CELL COUNT(AUTO) 5.37 MIL/uL (4.50-6.20); RED CELL DISTRIBUTION WIDTH 14.8 % (11.0-15.5); WHITE BLOOD COUNT (AUTO) 13.5 K/uL (4.8-10.8)
[2025-01-14 05:23] LABS: CREATININE 0.9 mg/dL (0.5-1.3); GLOMERULAR FILTR. RATE CALC 92.0 mL/min (>90); GLUCOSE,RANDOM 108.0 mg/dL (70-105); SODIUM SERUM 136.0 mmol/L (136-145); UREA NITROGEN, BLOOD 29.0 mg/dL (7-18)
--- NOTE | 2025-01-14 08:45 | HMCIMG ---
EXAM: CR Chest, 1 view. CLINICAL HISTORY: COPD. COMPARISON: CR Chest. 01/10/2025. FINDINGS: Azygous fissure. Mild COPD. The lungs show no infiltration or other acute findings. No pleural effusion or pneumothorax. The cardio mediastinal silhouette is within normal limits. No acute osseous abnormality. IMPRESSION: No acute cardiopulmonary pathology is evident. Azygous fissure. Mild COPD. Stable. No new finding. /Drayden
--- NOTE | 2025-01-14 09:58 | NUR ---
MEDICATION REFUSAL PATIENT CONTINUES TO TAKE HOME SUPPLY OF GABAPENTIN. DISCUSSED WITH PATIENT EDUCATION PROVIDED.
--- NOTE | 2025-01-14 10:21 | HMCIMG ---
EXAM: CTA examination of the chest ??? Pulmonary embolism protocol CLINICAL HISTORY: To rule out pulmonary embolism. TECHNIQUE: Thin collimated axial CTA images of the chest were obtained with and without contrast with sagittal and coronal reformatted images also submitted. CT scan done according to ALARA (As Low as Reasonably Achievable). COMPARISON: CT dated January 10, 2025. FINDINGS: Moderate paraseptal and centrilobular emphysema. There is an azygous fissure. No collapse or consolidation. No pulmonary nodules. No pleural effusions. No pericardial effusion. Mild cardiomegaly. There is reflux of contrast into the hepatic veins and the intrahepatic IVC that may reflect increased right cardiac chamber pressures. Calcification of the coronary arteries with atherosclerotic changes in the aorta. Mild ectasia of the ascending aorta measuring 4.3 cm. Main pulmonary artery and its branches are not dilated. No filling defect within the pulmonary artery and their lobar and segmental branches. No axillary, supraclavicular, or mediastinal lymphadenopathy. No focal thyroid abnormality. Limited views of the upper abdomen demonstrate bilateral renal cortical cysts. Stent in the abdominal aorta. No acute or suspicious osseous abnormality. IMPRESSION: 1. Mild cardiomegaly with coronary artery disease. There is reflux of contrast into the hepatic veins and the intrahepatic IVC that may reflect increased right cardiac chamber pressures. Consider echocardiography for further evaluation. 2. 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 3. No acute or chronic pulmonary thromboembolism. 4. Moderate paraseptal and centrilobular emphysema. 5. No pulmonary infiltrates or effusion. Compared to previous CT dated January 10, 2025, no significant interval change. /Emely
--- NOTE | 2025-01-14 10:40 | NUR ---
[place] CARE COORDINATION/SERVICE CONNECTION FOR SNF Discussed discharge planning with the [place]. States plan is to return home. May need home O2. to follow. Patient has mandatory eligibility (service connection) for SNF. Addendum: 01/14/25 at 1041 by HIMA SHIELDS CM Amended: Links added.
--- NOTE | 2025-01-14 14:55 | NUR ---
MEDICATION 1400 DOSE OF GABAPENTIN TAKEN BY PATIENT FROM HOME SUPPLY.
--- NOTE | 2025-01-14 15:28 | PN ---
[facility] PROGRESS NOTE Date Patient Seen: Jan 14, 2025 Time of Visit: 15:24 Supervising Physician: Dr. Lynch PROBLEM LIST: COPD on exacerbation Atrial fibrillation from childhood Back pain due to a fracture in 1975 Myocardial infarction in 1995 Enlarged prostate INTERVAL HISTORY: Patient is seen at bedside today, at rest he is currently on room air, states he discharge he feels slightly short of breath on exertion however yesterday during 6 minute walk we are unable to see if patient can tolerate a full 6 minutes as he decided his lower back pain would prevent him from completing the task. He has been decreased today to Solu-Medrol 40 mg b.i.d.. In conversation with hospitalist team we will decrease his steroids again tomorrow and he will likely discharge. Plan is for another 6 minute walk today with physical therapy to assess at bedside. Plan Pending 6 minute walk Continue with antibiotics Steroids tapered to 40 mg b.i.d. at this time Continue with nebulizer treatment Patient currently on room air Continue cough symptomatic relief REVIEW OF SYSTEMS: 12 point ROS reviewed with patient. Pertinent positives mentioned above. Otherwise negative. PHYSICAL EXAM: GENERAL: alert, weak, awake oriented x 3 HEENT: EOMI, Sclera non icteric, moist mucosa NECK: Supple, no JVD, trachea midline LUNGS: Clear breath sounds bilaterally. No wheezes HEART: Regular rate and rhythm. Normal S1 and S2, without murmurs ABD: Abdomen soft, nontender. Bowel sounds present EXT: No clubbing cyanosis or edema NEURO: Alert and oriented to person, follows commands Vital Signs (last 8hr) Date Time Temp Pulse Resp B/P (MAP) Pulse Ox O2 Delivery O2 Flow Rate FiO2 01/14/25 12:00 97.5 89 16 127/95 94 Room Air 01/14/25 11:10 74 20 01/14/25 10:00 95 Room Air* 0 21 01/14/25 08:20 88 18 N/A Room Air 21 01/14/25 08:00 97.5 77 15 119/90 95 Room Air LABS: Hematology Labs: Test 01/14/25 04:27 Range/Units White Blood Count 13.5 H 4.8-10.8 K/uL Red Blood Count 5.37 4.50-6.20 MIL/uL Hemoglobin 15.2 14.0-18.0 g/dL Hematocrit 44.9 42-54 % Mean Corpuscular Volume 83.6 79-99 fL Mean Corpuscular Hemoglobin 28.3 27.0-33.0 pg Mean Corpuscular Hemoglobin Concent 33.9 32.0-36.0 g/dL Red Cell Distribution Width 14.8 11.0-15.5 % Platelet Count 231 130-400 K/uL Mean Platelet Volume 10.1 7.5-10.5 fL Immature Granulocyte % (Auto) 1.1 H 0-1 % Neutrophils (%) (Auto) 84.2 H 40.0-77.0 % Lymphocytes (%) (Auto) 10.0 L 21.0-51.0 % Monocytes (%) (Auto) 4.6 3.0-13.0 % Eosinophils (%) (Auto) 0.0 0.0-8.0 % Basophils (%) (Auto) 0.1 0.0-5.0 % Neutrophils # (Auto) 11.4 H 1.8-7.7 K/uL Lymphocytes # (Auto) 1.4 1.0-4.8 K/uL Monocytes # (Auto) 0.6 0.1-1.0 K/uL Eosinophils # (Auto) 0.00 0.00-0.70 K/uL Basophils # (Auto) 0.02 0.00-0.20 K/uL Absolute Immature Granulocyte (auto 0.15 0-1 K/uL Nucleated Red Blood Cells 0.0 0.0-0.19 % Chemistry Labs: Test 01/14/25 04:27 01/13/25 04:44 Range/Units Sodium Level 136 136-145 mmol/L Potassium Level 4.9 3.5-5.1 mmol/L Chloride Level 99 L 101-111 mmol/L Carbon Dioxide Level 28 21-32 mmol/L Blood Urea Nitrogen 29 H 7-18 mg/dL Creatinine 0.9 0.5-1.3 mg/dL Glomerular Filtration Rate Calc 92 >90 mL/min Random Glucose 108 H 70-105 mg/dL Total Calcium 9.3 8.5-10.1 mg/dL B-Type Natriuretic Peptide 97 0-100 pg/mL Coagulation Labs: Test 01/13/25 11:04 Range/Units D-Dimer Quantitative (PE/DVT) 2754 *H 0-500 ng/mL DIAGNOSTICS / RADIOLOGY RESULTS: [ ] PLAN NEURO: Minimize central acting medications as possible. Maintain fall precautions, adequate lighting during the day PULMONARY: Supplemental 02 as needed. Maintain aspiration precautions at all times CARDIOVASCULAR: Follow hemodynamics. Vital signs per facility protocol GI & NUTRITION: Continue with nutritional support. Continue stool softeners and laxatives as needed. KIDNEYS & ELECTROLYTES: Strict monitoring of intake, output and overall fluid balance. Avoid nephrotoxic medications to the extent possible. Medications to be dosed according to renal function. Monitor electrolytes and replace as needed ENDOCRINE: Maintain blood glucose between 100-180 at all times. Hypoglycemia protocol in place INFECTIOUS DISEASE: Trend temperature, WBC and procalcitonin level Follow cultures, deescalate antibiotics as soon as possible. Panculture if new onset fever ONCOLOGY/HEMATOLOGY/COAGULATION: Monitor for s/s of bleeding Monitor hemoglobin, coagulation studies as needed SKIN: Pressure ulcer prevention per facility protocol Specialty mattress ORTHO/REHAB: Continue PT/OT Prophylaxis: Continue GI and DVT prophylaxis Code Status: Full Resuscitation Disposition: TBD Other: Total patient care time exceeds 35 minutes excluding all procedures. SAMMI PEARCE Jan 14, 2025 15:28
--- NOTE | 2025-01-14 16:21 | PN ---
[facility] PROGRESS NOTE Date of Service: Jan 14, 2025 Time of Service: 16:[address] Guzmán SUBJECTIVE: 69-year-old male came to the ED with a chief complaint of shortness of breath. The patient experienced shortness of breath that began gradually about a week ago. The patient reported that the symptoms worsened over the last 3-4 days, making it difficult to sleep, particularly when lying flat. The patient did not report any exposure to cold, dust, pets. The patient experienced the wheezing sounds that were constant in nature. The patient experienced fever intermittently, feeling colder than usual. Patient denied chest tightness, leg swelling, syncope, fever, chills, night sweats or recent hospital admission for similar reasons. The patient previously had the COPD suggested by his doctor. The patient also mentioned his history of chronic atrial fibrillation, back pain from a previous injury, and the inability to engage in physical activities due to back issues. His vitals appears to be normal except respiratory rate rate 25, BP 130/103. Labs revealed WBC 8.0, hemoglobin 16.7, hematocrit 49.5. Sodium 140, potassium 4.4, chloride1 not 2, bicarbonate 35, alkaline phosphatase 166, CRP 15.9, procalcitonin less than 0.05. ABG revealed PO2 64.2, O2 saturation 91.9. Pending urinalysis, respiratory culture with Gram stain. Chest x-ray revealed mild COPD. Serology is negative for COVID-19, influenza, group a Streptococcus. EKG revealed atrial fibrillation, aberrant conduction of supraventricular beats. Patient resumed on his home medications. 01/11/2025: Patient was seen bedside in room. Patient was, awake, and oriented. He stated that his shortness of breath was going down until today morning when it suddenly became worse. He states that the nebulization treatment he received in the morning improved the shortness of breath. Patient was seen by Pulmonary and critical Care Medicine who evaluated the patient and recommended to continue with the current treatment plan. Patient's vitals are stable with a blood pressure of 109/61 and a pulse rate of 70. 01/12/2025: Patient was seen bedside in the room. Patient was awake, alert, orientedx3. Today the patient feels better compared to yesterday. He is currently sitting in a tripod position, on3 L nasal cannula. Patient continues on Solu-Medrol 40 Q 8 hours as well as antibiotics and nebulizer treatment as indicated for COPD. Patient is showing mild improvement and expresses severe anxiety regarding the fact that he has been hospitalized for this long and wishes to go home today. His vitals are normal except blood pressure 146 /90. Labs revealed WBC trending up from 18.7-22.9. BUN , creatinine 0.8, random glucose 122. CRP is trending down from 15.9-10.6. 01/13/2025: Patient was seen bedside in room 409. His vitals are stable, blood pressure 127/52, respiratory rate 16, saturating 96% with 3 L nasal cannula. He says his SOB has been improved gradually since admission but complains of cough. Patient attempted 6 minute walk today with respiratory therapy but due to his chronic lumbar pain was unable to complete the walk. Requested physical therapy to work with the patient off nasal cannula and monitor O2, discussion with case management regarding home O2 therapy, preparation for discharge. Patients D- dimer at 2754 this morning, ordered CT scan to rule out pulmonary embolism. Patient is continued on Solu-Medrol 40 mg Q 8, azithromycin 250 mL IV Q 24 H. smoking cessation discussed with patient and at bedside. 01/14/25 patient was seen by nurse practitioner and physician during rounding in room 409. As per glazing superintendent Solu-Medrol was decreased from 40 mg t.i.d. to b.i.d.. Chest CT showed mild cardiomegaly with coronary artery disease. There is reflux of contrast into the hepatic veins and the intrahepatic IVC that may reflect increased right cardiac chamber pressure. Consider 2D echo for further evaluation. 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 No acute or chronic pulmonary thromboembolism. Moderate paraseptal and centrilobular emphysema. No pulmonary infiltrate or effusion. Patient did not passed 6 minute walk. Patient will need oxygen at home. Patient was also educated regarding the quitting smoking. Anticipated discharge within 24 to 48 hours. REVIEW OF SYSTEMS CONSTITUTIONAL: Denies any fever. NEUROLOGICAL: Denies headache, amaurosis fugax, motor weakness, sensory deficit, vertigo/spinning sensation, gait abnormalities, or tremors. ENT: No hearing loss, otalgia, otorrhea, rhinitis, rhinorrhea, hoarseness, or sore throat. CARDIOVASCULAR: Positive for palpitations, history of atrial fibrillation. PULMONARY: Positive for shortness of breath, cough and wheezing which has improved to the previous day. Negative for chest tightness SLEEP: Denies morning headaches, daytime somnolence or napping. Denies difficulty falling asleep, staying asleep, waking from sleep. Denies knowledge of snoring. GASTROINTESTINAL: Denies any type of dysphagia to either liquids or solids. Denies nausea, vomiting, pyrosis, early satiety, abdominal pain, diarrhea, constipation, or changes in stool consistency or caliber. Denies coffee-ground emesis, hematemesis, hematochezia, or melanotic stools. GENITOURINARY: Improvement of the frequency in the urination. Negative for dysuria ENDOCRINOLOGIC: Denies polyuria, polydipsia, polyphagia or heat/cold intolerances. HEMATOLOGIC: Denies thrombophilia/previous clots, or coagulopathy/bleeding disorders. ONCOLOGIC: Denies personal history of malignancy. DERMATOLOGIC: Denies rashes or pruritus. PSYCHIATRIC: Denies any suicidal or homicidal ideation. Denies hallucinations. PHYSICAL EXAM GENERAL APPEARANCE: The patient is awake, alert, and oriented, in mild cardiopulmonary distress NEUROLOGICAL: Cranial nerves II-XII grossly intact. Motor is 5/5 in bilateral upper and lower extremities proximal to distal. No sensory deficits. HEENT: Face is symmetric. Pupils are equal and reactive. Extraocular movements are intact. NECK: Supple. No JVD. No thyromegaly. No submental, submandibular, pre- /postauricular, occipital or supraclavicular lymphadenopathy. CHEST: Normal chest expansion. No Telemetry. LUNGS: Presence of rales, no more wheezing CARDIOVASCULAR: Irregularly irregular pulse S1 and S2 normal. No appreciable rubs, murmurs or gallops. ABDOMEN: Soft, nontender, and nondistended. There is no rebound, voluntary guarding, or rigidity. : EXTREMITIES: Non-edematous and not cyanotic. No clubbing. Good capillary refill. SKIN: No skin breakdown. Vital Signs (last 8hr) Date Time Temp Pulse Resp B/P (MAP) Pulse Ox O2 Delivery O2 Flow Rate FiO2 01/14/25 12:00 97.5 89 16 127/95 94 Room Air 01/14/25 11:10 74 20 01/14/25 10:00 95 Room Air* 0 21 01/14/25 08:20 88 18 N/A Room Air 21 LABS: Laboratory: Test 01/14/25 04:27 01/13/25 11:04 01/13/25 04:44 01/13/25 04:09 Range/Units White Blood Count 13.5 H 4.8-10.8 K/uL Red Blood Count 5.37 4.50-6.20 MIL/uL Hemoglobin 15.2 14.0-18.0 g/dL Hematocrit 44.9 42-54 % Mean Corpuscular Volume 83.6 79-99 fL Mean Corpuscular Hemoglobin 28.3 27.0-33.0 pg Mean Corpuscular Hemoglobin Concent 33.9 32.0-36.0 g/dL Red Cell Distribution Width 14.8 11.0-15.5 % Platelet Count 231 130-400 K/uL Mean Platelet Volume 10.1 7.5-10.5 fL Immature Granulocyte % (Auto) 1.1 H 0-1 % Neutrophils (%) (Auto) 84.2 H 40.0-77.0 % Lymphocytes (%) (Auto) 10.0 L 21.0-51.0 % Monocytes (%) (Auto) 4.6 3.0-13.0 % Eosinophils (%) (Auto) 0.0 0.0-8.0 % Basophils (%) (Auto) 0.1 0.0-5.0 % Neutrophils # (Auto) 11.4 H 1.8-7.7 K/uL Lymphocytes # (Auto) 1.4 1.0-4.8 K/uL Monocytes # (Auto) 0.6 0.1-1.0 K/uL Eosinophils # (Auto) 0.00 0.00-0.70 K/uL Basophils # (Auto) 0.02 0.00-0.20 K/uL Absolute Immature Granulocyte (auto 0.15 0-1 K/uL Nucleated Red Blood Cells 0.0 0.0-0.19 % Sodium Level 136 136-145 mmol/L Potassium Level 4.9 3.5-5.1 mmol/L Chloride Level 99 L 101-111 mmol/L Carbon Dioxide Level 28 21-32 mmol/L Blood Urea Nitrogen 29 H 7-18 mg/dL Creatinine 0.9 0.5-1.3 mg/dL Glomerular Filtration Rate Calc 92 >90 mL/min Random Glucose 108 H 70-105 mg/dL Total Calcium 9.3 8.5-10.1 mg/dL D-Dimer Quantitative (PE/DVT) 2754 *H 0-500 ng/mL B-Type Natriuretic Peptide 97 0-100 pg/mL Blood Gas Specimen Type Arterial Arterial Blood pH 7.388 7.350-7.450 Arterial Blood Partial Pressure CO2 50 H 35-48 mmHg Arterial Blood Partial Pressure O2 95.4 83.0-108.0 mmHg Arterial Blood HCO3 29.2 H 21.0-28.0 mmol/L Arterial Blood Oxygen Saturation 97.1 94.0-98.0 % Arterial Blood Base Excess 3.2 H -2.0-3.0 mmol/L Blood Gas Temperature 37.0 35.5-37.0 CELSIUS Blood Gas Flow-by 2.00 0.00-15.00 L/min Blood Gas Vent Mode NC ROOM AIR FiO2 28.0 % Blood Gas Specimen Comment LB RN PATRIK Current Medications Medications (Trade) Dose Ordered Sig/Kamila Route PRN Reason Start Time Stop Time Status Last Admin Dose Admin Acetaminophen (TYLenol 325MG TAB) 650 mg Q4H PRN PO TEMPERATURE GREATER THAN 101.5 01/10/25 07:00 02/09/25 06:59 Atorvastatin Calcium (LIPItor 40MG) 80 mg HS PO 01/10/25 21:00 02/09/25 20:59 01/13/25 20:57 80 MG Azithromycin 250 ml @ 250 mls/hr Q24H IVPB 01/10/25 05:00 01/20/25 04:59 01/14/25 04:50 250 MLS/HR Benzonatate (Tessalon 100mg Caps) 200 mg TID PRN PO COUGH 01/10/25 07:00 02/09/25 06:59 Budesonide (Pulmicort 0.5 Mg/2ml) 0.5 mg BID IH 01/10/25 11:30 02/09/25 11:29 01/14/25 06:43 0.5 MG Ceftriaxone Sodium (Rocephin 2gm Inj) 2 gm Q24H IVPB 01/13/25 15:00 01/23/25 14:59 01/14/25 15:44 2 GM Citalopram Hydrobromide (CeleXA 20MG TAB) 20 mg DAILY PO 01/10/25 09:00 02/09/25 08:59 01/14/25 09:50 20 MG Famotidine (Pepcid 20mg Vial) 20 mg BID IV 01/10/25 09:00 01/10/25 07:33 DC Famotidine (Pepcid 20mg Tab) 20 mg BID PO 01/10/25 09:00 02/09/25 08:59 01/14/25 09:50 20 MG Gabapentin (NEURontin 100 mg CAP) 200 mg TID PO 01/11/25 09:00 02/10/25 08:59 01/11/25 19:47 200 MG Gabapentin (NEURontin 300 MG CAP) 600 mg TID PO 01/11/25 09:00 02/10/25 08:59 01/11/25 19:47 600 MG Home Med (Home Medication) (Gabapentin 800 MG) TID PO 01/10/25 09:00 01/11/25 08:00 DC Home Med (Home Medication) ([Vitamin D3] 1,000 UNITS) DAILY PO 01/10/25 09:00 02/09/25 08:59 Ipratropium [place] (AtrovENT UD) 0.5 mg [id number] IH 01/10/25 10:00 01/13/25 10:36 DC 01/13/25 06:52 0.5 MG Ipratropium [place] (AtrovENT UD) 0.5 mg [id number] IH 01/13/25 12:00 02/09/25 09:59 01/14/25 11:10 0.5 MG Isosorbide Mononitrate (Imdur 30mg Sr) 30 mg DAILY PO 01/10/25 09:00 02/09/25 08:59 01/14/25 09:50 30 MG Magnesium Sulfate 50 ml @ 0 mls/hr PROTOCOL IV 01/10/25 05:00 01/10/25 07:27 DC Magnesium Sulfate 50 ml @ 0 mls/hr PROTOCOL PRN IV mgprotocol 01/10/25 07:00 02/09/25 06:59 Methylprednisolone Sodium Succinate (Solu-medROL 40MG) 40 mg BID IVP 01/14/25 21:00 02/13/25 20:59 Methylprednisolone Sodium Succinate (Solu-medROL 40MG) 40 mg Q8H IVP 01/11/25 09:00 01/14/25 11:04 DC 01/14/25 09:50 40 MG Methylprednisolone Sodium Succinate (Solu-medROL 40MG) 60 mg Q6H IVP 01/10/25 11:30 01/11/25 09:01 DC 01/11/25 05:05 60 MG Metoprolol Succinate (TopROL XL) 50 mg BID PO 01/10/25 09:00 02/09/25 08:59 01/14/25 09:50 50 MG Ondansetron HCl (zoFRAN 4MG INJ) 4 mg Q6H PRN IVP NAUSEA/VOMITING 01/10/25 07:00 02/09/25 06:59 Potassium Chloride 100 ml @ 50 mls/hr AD PRN IV POTASSIUM PROTOCOL 01/10/25 07:00 02/09/25 06:59 Potassium Chloride 100 ml @ 100 mls/hr AD PRN IV POTASSIUM PROTOCOL 01/10/25 07:00 01/13/25 07:16 DC Potassium Chloride (K-Dur/Klor-Con 20meq) 20 meq AD PRN PO POTASSIUM PROTOCOL 01/10/25 07:00 02/09/25 06:59 Potassium Chloride (KCl 10% Elixir 20meq/15ml) 20 meq AD PRN PO POTASSIUM PROTOCOL 01/10/25 07:00 02/09/25 06:59 Prednisone (deltaSONE/ oraSONE 20MG TAB) 40 mg DAILY PO 01/11/25 09:00 01/10/25 11:32 DC Rivaroxaban (Xarelto) 20 mg PCLUNCH PO 01/10/25 13:00 02/09/25 12:59 01/14/25 13:19 20 MG Tramadol HCl (UltRAM) 50 mg QID PRN PO MODERATE PAIN (4-6) 01/10/25 07:30 01/15/25 07:29 01/14/25 11:39 50 MG DIAGNOSTICS / RADIOLOGY: [ ] ASSESSMENT: COPD exacerbation Atrial fibrillation Pneumonitis POA Acute hypoxic respiratory failure POA Leukocytosis POA Benign prostatic hyperplasia probable PE ruled out per chest CT Coronary artery disease as per CT chest Possible of increased right cardiac chamber pressure as per CT chest Atherosclerosis with ectasia of ascending aorta per CT chest Moderate paraseptal and centrilobular emphysema per CT chest PLAN: As per glazing superintendent Solu-Medrol was decreased from 40 mg t.i.d. to b.i.d.. Chest CT showed mild cardiomegaly with coronary artery disease. There is reflux of contrast into the hepatic veins and the intrahepatic IVC that may reflect increased right cardiac chamber pressure. Consider 2D echo for further evaluation. 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 No acute or chronic pulmonary thromboembolism. Moderate paraseptal and centrilobular emphysema. No pulmonary infiltrate or effusion. Patient did not passed 6 minute walk. Patient will need oxygen at home. Patient was also educated regarding the quitting smoking. Anticipated discharge within 24 to 48 hours. COPD exacerbation - beyond inpatient Services gave the following recommendations were the patient Plan 6 minute walk failed Continue with antibiotics Continue with steroids Solu-Medrol 40 mg q.8 hours IV push Continue with nebulizer treatment Continue supplemental oxygen Continue cough symptomatic relief -CT chest revealed diffuse edematous changes of the left lung with multiple varying sizes and also evidence of bullous emphysema. Atrial fibrillation -home medications included metoprolol. -continue xarelto for DVT prophylaxis -patient placed on telemetry. -continue to monitor. Patient education Advised the patient to smoking cessation to improve respiratory health Discussion with case management for discharge preparation. GI prophylaxis with Pepcid 20 mg. ATTESTATION BY PHYSICIAN I have seen and examined the patient. I reviewed the documentation, medical decision making, and treatment plan as noted by the mid-level provider above. I agree with the findings and plan of care. Clarita Guzmán MD, KATARZYNA B APRN Jan 14, 2025 16:21
[2025-01-14] MEDS: Solu-medROL 40MG VIAL IVP SCH (21:21)
[2025-01-15] VITALS (10 sets, daily range): BP systolic 118–125; BP diastolic 71–87; PULSE 58–84; RESP 18–20; TEMP 97.6–98.1; O2SAT 95–98
[2025-01-15 04:04] LABS: IMMATURE GRANULOCYTE ABSOLUTE 0.11 K/uL (0-1); NUCLEATED RED BLOOD CELLS 0.0 % (0.0-0.19); PLATELET COUNT (AUTO) 215 K/uL (130-400); RED BLOOD CELL COUNT(AUTO) 5.08 MIL/uL (4.50-6.20); RED CELL DISTRIBUTION WIDTH 14.5 % (11.0-15.5); WHITE BLOOD COUNT (AUTO) 13.8 K/uL (4.8-10.8)
[2025-01-15 04:27] LABS: ASPARTATE AMINOTRANSFERASE 22.0 U/L (10-37); CREATININE 0.8 mg/dL (0.5-1.3); GLOMERULAR FILTR. RATE CALC 96.0 mL/min (>90); GLUCOSE,RANDOM 119.0 mg/dL (70-105); SODIUM SERUM 138.0 mmol/L (136-145); TOTAL PROTEIN, SERUM 6.1 g/dL (6.0-8.3); UREA NITROGEN, BLOOD 26.0 mg/dL (7-18)
--- NOTE | 2025-01-15 11:15 | NUR ---
Patient unable to complete 6min walk due to back pain; tolerated 3 mins. Addendum: 01/15/25 at 1118 by RAGHU DE LA VEGA Amended: Links added.
[2025-01-15] MEDS ORDERED: BUDE0.5A3 IH (14:18)
[2025-01-15] MEDS ORDERED: IPRNEB IH (14:18)
[2025-01-15] MEDS ORDERED: METH4TAB3 PO (14:18)
--- NOTE | 2025-01-15 14:45 | DS ---
Discharge Summary Hospital Course Summary: 69-year-old male came to the ED on 01/10 with chief complaint of shortness of breath. Patient experienced shortness of breath that began gradually about a week ago, symptoms worsened over the last 3-4 days, making it difficult to sleep particularly when lying flat. he did not report any exposure to cold, dust, pets. Patient denied fever, chills, night sweats, syncope or recent hospital admissions for similar episodes. Patient has history of chronic atrial fibrillation, severe back pain from previous injury, depression. Vitals appeared to be normal except respiratory rate 25, BP 130/103. Labs revealed WBC 8.0, hemoglobin 16.7, hematocrit 49.5, sodium 140, potassium 4.4, bicarbonate alkaline phosphatase 166, CRP 15.9. Chest x-ray revealed mild COPD. Was admitted to the hospital and pulmonology was consulted. He was started on Medrol 60 mg q.6h IV, azithromycin 250 mL Q 24 H IV, nebulization with budesonide, ipratropium bromide for treatment of acute exacerbation of COPD, maintaining 100% saturation on 3 L nasal cannula. Atrial fibrillation was managed by his home medication metoprolol, Xarelto was given for DVT prophylaxis, patient placed on telemetry. Symptoms gradually improved over a period of 2 days, IV steroids tapered gradually as recommended by pulmonology, patient started to maintain good saturations at room air on 01/14. Pulmonology recommended to perform 6 minute walk test to assess requirement for home oxygen therapy, patient was unable to perform test as he has chronic back pain for very long time. Today patient was doing good, saturating 97% on room air, Solu-Medrol 40 mg b.i.d., patient was planned to discharge according to pulmonology recommendations advised to follow-up with outpatient pulmonology clinic in 1 week. 01/15/2025, patient was clinically stable and the decision was made to discharge the patient home with steroid Dose pack, nebulization treatment, counseling to stop smoking. Cager Operator(s): Consultants: Pulmonary and critical care Patient is seen at bedside today, at rest he is currently on room air, states he discharge he feels slightly short of breath on exertion however yesterday during 6 minute walk we are unable to see if patient can tolerate a full 6 minutes as he decided his lower back pain would prevent him from completing the task. He has been decreased today to Solu-Medrol 40 mg b.i.d.. In conversation with hospitalist team we will decrease his steroids again tomorrow and he will likely discharge. Plan is for another 6 minute walk today with physical therapy to assess at bedside. Plan Pending 6 minute walk Continue with antibiotics Steroids tapered to 40 mg b.i.d. at this time Continue with nebulizer treatment Patient currently on room air Continue cough symptomatic relief Procedure(s): [place] [id number] [id number] IMAGING REPORT Signed PATIENT: MELISSA MARIN MR#: [id number] : 1955 SEX: M AGE: 69 LOCATION: [facility] ORDER 0 STATUS: REG ER REPORT#: [id number] SERVICE 0 REASON: SOB ORDERING PHYSICIAN: NIKO ARIAS MD PROCEDURE: CXR1VW - CHEST 1VW EXAM: CR Chest, 1 view CLINICAL HISTORY: Shortness of breath. COMPARISON: None provided. FINDINGS: Incidental azygous fissure. Mild COPD. The lungs show no infiltrates or other acute findings. No pleural effusion or pneumothorax. The cardiomediastinal silhouette is within normal limits. No acute osseous abnormality. IMPRESSION: No acute cardiopulmonary process is evident. Incidental azygous fissure. Mild COPD. /[place] DICTATED BY: JOHANNY JOHNSON Jr., MD DATE: 01/10/25558 ELECTRONICALLY SIGNED BY: JOHANNY JOHNSON Jr., MD DATE: 01/10/2555 [place] [id number] [phone] IMAGING REPORT Signed PATIENT: MELISSA MARIN MR#: [id number] : 1955 SEX: M AGE: 69 [facility] 113 STATUS: ADM IN REPORT#: [id number] SERVICE 1133 REASON: COPD exacerbation ORDERING PHYSICIAN: EVIE FONTENOT MD PROCEDURE: CHEST WO - CT CHEST W/O CONTRAST CT CHEST W/O CONTRAST REASON: COPD exacerbation COMPARISON: None. TECHNIQUE: Multiple sequential axial images of the chest were obtained from the thoracic inlet through the upper pole of the kidneys without intravenous contrast administration. FINDINGS: Heart size is within upper limits of normal. There is coronary calcification suggesting of coronary artery disease. No mediastinal or axillary lymphadenopathy identified. There is no pleural or pericardial effusion. Lungs are clear. There is emphysematous changes with multiple bulla seen in both lungs. There is a right azygous lobe with also multiple bulla. There is no consolidation or pneumothorax. Thoracic aorta demonstrates atherosclerotic changes. Trachea and main bronchi are unremarkable. No chest wall abnormality identified. Portable abdomen demonstrate cortical cysts in both kidneys. There is no acute process seen in the left portion of the upper abdomen. IMPRESSION: Diffuse edematous changes of the left with multiple varying sizes Coronary calcification suggesting of coronary disease No acute process seen in the CT of the chest without contrast. CT was performed with one or more following dose reduction techniques: automated exposure control, adjustment of the mA and kv according to patient's size, or use of a iterative reconstruction technique. DICTATED BY: MARIO ODYLE MD DATE: 01/10/25 150 ELECTRONICALLY SIGNED BY: MARIO DOYLE MD DATE: 01/10/25 1512 [place] [address] IMAGING REPORT Signed PATIENT: MELISSA MARIN MR#: [id number] : 1955 SEX: M AGE: 69 LOCATION: [facility] ORDER 1307 STATUS: ADM IN REPORT#: [id number] SERVICE 0930 REASON: baseline cardiac function , orthopnea ORDERING PHYSICIAN: EVIE FONTENOT MD PROCEDURE: ECHO CMP - ECHO 2-D COMPLETE APPROVED REPORT EXAM: Two-dimensional and M-mode echocardiogram with Doppler and color Doppler. INDICATION ICD: Cardiac baseline function. 2D Dimensions RVDd 3.8 cm LVEF(%) 43.1 (>50%) LVED Vol(simp.) 95.0 mL IVSd 0.8 (0.7-1.1cm) FS(%) 22 % LVES Vol(simp.) 41.0 mL LVDd 5.1 (3.8-5.6cm) LA (2D) 5.8 (1.6-4.0cm) LVEF(%, simp.) 57 % PWd 1.2 (0.7-1.1cm) Ao Root(2D) 3.6 (2.0-3.7cm) LA ESV INDEX (BP) 79.47 mL/m2 IVSs 0.9 cm LVOT diam 2.5 (1.8-2.4cm) LVDs 4.0 (2.5-4.0cm) IVC diam 2.5 cm PWs 1.5 cm Deformation Strain Apical 4 -13.8 % Apical 2 -14.7 % Apical 3 -15.4 % Global Strain -14.6 % M-Mode Dimensions EPSS 0.5 cm LA (MM) 5.9 (1.6-4.0cm) Ao Root(MM) 2.8 (2.0-3.7cm) Aortic Valve AoV Vmax 1.0 m/s Ao Peak GR 4.4 mmHg LVOT Vmax 0.8 m/s AoV VTI 0.1 m Ao Mean GR 2.5 mmHg LVOT VTI 0.16 m JAYDA (VMAX) 4.03 cm2 JAYDA (VTI) 4.7 cm2 Mitral Valve MV E Vmax 121.3 cm/s DECEL Time 130 ms MV A Vmax 16.4 cm/s P 1/2 T 53 ms E/A ratio 7.4 MVA (PHT) 4.3 cm2 TDI E/E' Medial 11.6 E/E' Lateral 14.0 Medial E' Peak V 10.46 cm/s Lateral E' Peak V 8.64 cm/s Pulmonary Valve PV Vmax 0.9 m/s PV VTI 0.17 m PV Mean GR 1.7 mmHg PV Peak GR 2.9 mmHg PI End Clementine. [place] 164.0 cm/s Tricuspid Valve TR Vmax 4.0 m/s RAP (EST) 8 mmHg RVSP 73.5 mmHg TR Peak GR 65.5 mmHg Left Ventricle The left ventricle is normal size. No regional wall motion abnormalities noted. Mild concentric left ventricular hypertrophy. Left ventricular systolic function is normal, estimated LVEF 55%. Indeterminate diastolic dysfunction. Right Ventricle The right ventricle is dilated. The right ventricular systolic function is no rmal. Atria The left atrium is severely dilated, 82 mL/m. The right atrium is dilated. Aortic Valve Aortic valve trileaflet. The leaflets are mildly thickened and calcified. Trace aortic regurgitation. There is no aortic valvular stenosis. Mitral Valve The mitral valve is normal in structure. The leaflets are mildly thickened and calcified. Mild mitral regurgitation. There is no mitral valve stenosis. Tricuspid Valve The tricuspid valve is normal in structure. Trace tricuspid regurgitation. RVSP is normal. Pulmonic Valve Pulmonic valve is not well visualized. Great Vessels The aortic root is normal in size. IVC is dilated and collapses >50% with inspiration. Pericardium There is no pericardial effusion. Other Information Quality : Technically difficult study due to body habitus Conclusion The left atrium is severely dilated, 82 mL/m. The right atrium is dilated. The right ventricle is dilated. Mild concentric left ventricular hypertrophy. No regional wall motion abnormalities noted. Left ventricular systolic function is normal, estimated LVEF 55%. Indeterminate diastolic dysfunction. Trace aortic regurgitation. Mild mitral regurgitation. Trace tricuspid regurgitation. PASP is normal. There is no pericardial effusion. DICTATED BY: LUCHO FUNES MD DATE: 01/12/25 1238 ELECTRONICALLY SIGNED BY: LUCHO FUNES MD DATE: 01/12/25 1082 [place] [address] [id number] IMAGING REPORT Signed PATIENT: MELISSA MARIN MR#: [id number] : 1955 SEX: M AGE: 69 LOCATION: [facility] ORDER 230 STATUS: ADM IN REPORT#: [id number] SERVICE 0600 REASON: COPD ORDERING PHYSICIAN: SAMMI PEARCE PROCEDURE: CXR1VW - CHEST 1VW EXAM: CR Chest, 1 view. CLINICAL HISTORY: COPD. COMPARISON: CR Chest. 01/10/2025. FINDINGS: Azygous fissure. Mild COPD. The lungs show no infiltration or other acute findings. No pleural effusion or pneumothorax. The cardio mediastinal silhouette is within normal limits. No acute osseous abnormality. IMPRESSION: No acute cardiopulmonary pathology is evident. Azygous fissure. Mild COPD. Stable. No new finding. /[place] DICTATED BY: GERARD AVALOS MD DATE: 01/14/25944 ELECTRONICALLY SIGNED BY: GERARD AVALOS MD DATE: 01/14/25944 [place] [address] [id number] IMAGING REPORT Signed PATIENT: MELISSA MARIN MR#: [id number] : 1955 SEX: M AGE: 69 LOCATION: [facility] ORDER 1206 STATUS: ADM IN REPORT#: [id number] SERVICE 1201 REASON: rule out PE ORDERING PHYSICIAN: NAA ROTH MD PROCEDURE: CHES PE - CT CHEST PE PROTOCOL WWO CONT EXAM: CTA examination of the chest ??? Pulmonary embolism protocol CLINICAL HISTORY: To rule out pulmonary embolism. TECHNIQUE: Thin collimated axial CTA images of the chest were obtained with and without contrast with sagittal and coronal reformatted images also submitted. CT scan done according to ALARA (As Low as Reasonably Achievable). COMPARISON: CT dated January 10, 2025. FINDINGS: Moderate paraseptal and centrilobular emphysema. There is an azygous fissure. No collapse or consolidation. No pulmonary nodules. No pleural effusions. No pericardial effusion. Mild cardiomegaly. There is reflux of contrast into the hepatic veins and the intrahepatic IVC that may reflect increased right cardiac chamber pressures. Calcification of the coronary arteries with atherosclerotic changes in the aorta. Mild ectasia of the ascending aorta measuring 4.3 cm. Main pulmonary artery and its branches are not dilated. No filling defect within the pulmonary artery and their lobar and segmental branches. No axillary, supraclavicular, or mediastinal lymphadenopathy. No focal thyroid abnormality. Limited views of the upper abdomen demonstrate bilateral renal cortical cysts. Stent in the abdominal aorta. No acute or suspicious osseous abnormality. IMPRESSION: 1. Mild cardiomegaly with coronary artery disease. There is reflux of contrast into the hepatic veins and the intrahepatic IVC that may reflect increased right cardiac chamber pressures. Consider echocardiography for further evaluation. 2. 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 3. No acute or chronic pulmonary thromboembolism. 4. Moderate paraseptal and centrilobular emphysema. 5. No pulmonary infiltrates or effusion. Compared to previous CT dated January 10, 2025, no significant interval change. /[place] DICTATED BY: JOHANNY JOHNSON Jr., MD DATE: 01/14/251120 ELECTRONICALLY SIGNED BY: JOHANNY JOHNSON Jr., MD DATE: 01/14/251120 Assessment/Plan: ASSESSMENT: COPD exacerbation Atrial fibrillation Pneumonitis POA Acute hypoxic respiratory failure POA Leukocytosis POA Benign prostatic hyperplasia probable PE ruled out per chest CT Coronary artery disease as per CT chest Possible of increased right cardiac chamber pressure as per CT chest Atherosclerosis with ectasia of ascending aorta per CT chest Moderate paraseptal and centrilobular emphysema per CT chest Discharge Instructions: -Take the Medrol Dose Pack as prescribed, taper down over 6 days, do not stop suddenly. -use your nebulizer treatments as directed, clean it out after each use -quit smoking to slow COPD progression -eat balanced, smaller meals, limit salt, and stay hydrated -come to hospital if you have severe shortness of breath, chest pain, or confusion. Follow-up with PCP in 1 week Follow-up with pulmonology in 1 week Home Medications: Active Scripts Methylprednisolone (Medrol) 4 Mg Tab.ds.pk, 1 TAB PO AD for 6 Days, #21 TAB 0 Refills 6 on day 1 then reduce by one tablet daily until gone Prov:EVIE FONTENOT MD 01/15/25 Ipratropium [place] (Atrovent Neb Soln) 0.2 Mg/Ml (0.02 %) Soln, 0.5 MG IH [id number], #2 ML Prov:EVIE FONTENOT MD 01/15/25 Budesonide (Budesonide) 0.5 Mg/2 Ml Ampul.neb, 0.5 MG IH BID, #2 " 1 Refill Prov:EVIE FONTENOT MD 01/15/25 Reported Medications Gabapentin (Gabapentin) 400 Mg Capsule, 800 MG PO TID, CAP 08/18/22 Isosorbide Mononitrate (Isosorbide Mononitrate ER) 30 Mg Tab.er.24h, 30 MG PO DAILY, TAB 08/18/22 Metoprolol Succinate (Metoprolol Succinate) 50 Mg Tab.er.24h, 50 MG PO BID, TAB 08/18/22 Famotidine (Famotidine) 20 Mg Tablet, 20 MG PO BID, TAB 08/18/22 Citalopram Hydrobromide (Citalopram HBr) 20 Mg Tablet, 20 MG PO DAILY, TAB 08/18/22 [Vitamin D3] No Conflict Check, 1000 UNITS PO DAILY 08/18/22 Tramadol Hcl (Tramadol HCl) 50 Mg Tablet, 50 MG PO QID PRN for PAIN, TAB 08/18/22 Atorvastatin Calcium (LIPITOR) 80 Mg Tablet, 80 MG PO HS, TAB 08/18/22 Rivaroxaban (Xarelto) 20 Mg Tablet, 20 MG PO PCLUNCH, TAB 08/18/22 New Medications: Methylprednisolone (Medrol) 4 Mg Tab.ds.pk 1 TAB PO AD for 6 Days, #21 TAB 0 Refills 6 on day 1 then reduce by one tablet daily until gone Budesonide (Budesonide) 0.5 Mg/2 Ml Ampul.neb 0.5 MG IH BID, #2 " 1 Refill Ipratropium [place] (Atrovent Neb Soln) 0.2 Mg/Ml (0.02 %) Soln 0.5 MG IH [id number], #2 ML Continued Medications: Atorvastatin Calcium (Lipitor) 80 Mg Tablet 80 MG PO HS, TAB Citalopram Hydrobromide (Citalopram HBr) 20 Mg Tablet 20 MG PO DAILY, TAB Famotidine (Famotidine) 20 Mg Tablet 20 MG PO BID, TAB Gabapentin (Gabapentin) 400 Mg Capsule 800 MG PO TID, CAP Isosorbide Mononitrate (Isosorbide Mononitrate ER) 30 Mg Tab.er.24h 30 MG PO DAILY, TAB Metoprolol Succinate (Metoprolol Succinate) 50 Mg Tab.er.24h 50 MG PO BID, TAB Rivaroxaban (Xarelto) 20 Mg Tablet 20 MG PO PCLUNCH, TAB Tramadol Hcl (Tramadol HCl) 50 Mg Tablet 50 MG PO QID PRN for PAIN, TAB [Vitamin D3] () 1000 UNITS PO DAILY Time spent arranging discharge: 1-30 minutes ATTESTATION BY PHYSICIAN I have seen and examined the patient. I reviewed the documentation, medical decision making, and treatment plan as noted by the resident provider above. I agree with the findings and plan of care. Osmar Dawson MD, ADIL SHAH QUADRI MD Jan 15, 2025 14:45
--- NOTE | 2025-01-15 15:20 | NUR ---
DISCHARGE PT sitting in bed w/ eyes open A&Ox4, denies pain, able to make needs known, @bedside. Discharge instructions given verbally and written, PT & verbally acknowledged understanding. IV removed intact. PT escorted to POV via WC by LICENSED APPRAISER w/o complications.
--- NOTE | 2025-01-15 19:49 | PN ---
[facility] PROGRESS NOTE Date Patient Seen: Jan 15, 2025 Time of Visit: 19:49 Supervising Physician: [ ] Supervising Physician: Dr. Lynch PROBLEM LIST: COPD on exacerbation Atrial fibrillation from childhood Back pain due to a fracture in 1975 Myocardial infarction in 1995 Enlarged prostate INTERVAL HISTORY: Patient was evaluated at bedside with his present, he is preparing for discharge by primary today. Advised the patient to follow up with us at [facility] ([place], [place]) [facility] for continued maintenance therapy for his emphysema as well as to try and obtain supplemental O2 at home. Smoking cessation was again discussed with the patient. Recommendations to discharge with Medrol Dosepak for steroid taper and follow up with [facility] in 1-2 weeks. REVIEW OF SYSTEMS: 12 point ROS reviewed with patient. Pertinent positives mentioned above. Otherwise negative. PHYSICAL EXAM: GENERAL: alert, weak, awake oriented x 3 HEENT: EOMI, Sclera non icteric, moist mucosa NECK: Supple, no JVD, trachea midline LUNGS: Clear breath sounds bilaterally. No wheezes HEART: Regular rate and rhythm. Normal S1 and S2, without murmurs ABD: Abdomen soft, nontender. Bowel sounds present EXT: No clubbing cyanosis or edema NEURO: Alert and oriented to person, follows commands Vital Signs (last 8hr) Date Time Temp Pulse Resp B/P (MAP) Pulse Ox O2 Delivery O2 Flow Rate FiO2 01/15/25 12:00 97.7 81 20 118/80 94 Room Air 21 LABS: Hematology Labs: Test 01/15/25 03:52 Range/Units White Blood Count 13.8 H 4.8-10.8 K/uL Red Blood Count 5.08 4.50-6.20 MIL/uL Hemoglobin 14.5 14.0-18.0 g/dL Hematocrit 42.2 42-54 % Mean Corpuscular Volume 83.1 79-99 fL Mean Corpuscular Hemoglobin 28.5 27.0-33.0 pg Mean Corpuscular Hemoglobin Concent 34.4 32.0-36.0 g/dL Red Cell Distribution Width 14.5 11.0-15.5 % Platelet Count 215 130-400 K/uL Mean Platelet Volume 9.9 7.5-10.5 fL Immature Granulocyte % (Auto) 0.8 0-1 % Neutrophils (%) (Auto) 84.9 H 40.0-77.0 % Lymphocytes (%) (Auto) 9.0 L 21.0-51.0 % Monocytes (%) (Auto) 5.2 3.0-13.0 % Eosinophils (%) (Auto) 0.0 0.0-8.0 % Basophils (%) (Auto) 0.1 0.0-5.0 % Neutrophils # (Auto) 11.7 H 1.8-7.7 K/uL Lymphocytes # (Auto) 1.3 1.0-4.8 K/uL Monocytes # (Auto) 0.7 0.1-1.0 K/uL Eosinophils # (Auto) 0.00 0.00-0.70 K/uL Basophils # (Auto) 0.02 0.00-0.20 K/uL Absolute Immature Granulocyte (auto 0.11 0-1 K/uL Nucleated Red Blood Cells 0.0 0.0-0.19 % Chemistry Labs: Test 01/15/25 03:52 Range/Units Sodium Level 138 136-145 mmol/L Potassium Level 4.3 3.5-5.1 mmol/L Chloride Level 102 101-111 mmol/L Carbon Dioxide Level 32 21-32 mmol/L Blood Urea Nitrogen 26 H 7-18 mg/dL Creatinine 0.8 0.5-1.3 mg/dL Glomerular Filtration Rate Calc 96 >90 mL/min Random Glucose 119 H 70-105 mg/dL Total Calcium 8.6 8.5-10.1 mg/dL Magnesium Level 2.40 1.80-2.40 mg/dL Total Bilirubin 0.6 0.2-1.0 mg/dL Aspartate Amino Transf (AST/SGOT) 22 10-37 U/L Alanine Aminotransferase (ALT/SGPT) 35 12-78 U/L Alkaline Phosphatase 119 50-136 U/L Total Protein 6.1 6.0-8.3 g/dL Albumin 3.0 L 3.5-5.0 g/dL DIAGNOSTICS / RADIOLOGY RESULTS: [ ] PLAN NEURO: Minimize central acting medications as possible. Maintain fall precautions, adequate lighting during the day PULMONARY: Supplemental 02 as needed. Maintain aspiration precautions at all times CARDIOVASCULAR: Follow hemodynamics. Vital signs per facility protocol GI & NUTRITION: Continue with nutritional support. Continue stool softeners and laxatives as needed. KIDNEYS & ELECTROLYTES: Strict monitoring of intake, output and overall fluid balance. Avoid nephrotoxic medications to the extent possible. Medications to be dosed according to renal function. Monitor electrolytes and replace as needed ENDOCRINE: Maintain blood glucose between 100-180 at all times. Hypoglycemia protocol in place INFECTIOUS DISEASE: Trend temperature, WBC and procalcitonin level Follow cultures, deescalate antibiotics as soon as possible. Panculture if new onset fever ONCOLOGY/HEMATOLOGY/COAGULATION: Monitor for s/s of bleeding Monitor hemoglobin, coagulation studies as needed SKIN: Pressure ulcer prevention per facility protocol Specialty mattress ORTHO/REHAB: Continue PT/OT Prophylaxis: Continue GI and DVT prophylaxis Code Status: Full Resuscitation Disposition: TBD Other: Total patient care time exceeds 35 minutes excluding all procedures. SAMMI PEARCE Jan 15, 2025 19:49
== END 2025-01-15 15:20 | disposition home or self-care (01) | DRG 189 ==
LOC: EDH 04:19 → EDHIP 06:34 → 4BH 15:20
PROVIDERS: ADMIT Internal Medicine Sleep Medicine; ATTEND Internal Medicine Sleep Medicine
DX: J96.01 Acute respiratory failure with hypoxia (principal); J44.1 Chronic obstructive pulmonary disease with (acute) exacerbation; I48.20 Chronic atrial fibrillation, unspecified; N40.0 Benign prostatic hyperplasia without lower urinary tract symptoms; D72.829 Elevated white blood cell count, unspecified; E78.00 Pure hypercholesterolemia, unspecified; F41.9 Anxiety disorder, unspecified; Z20.822 Contact with and (suspected) exposure to COVID-19; I10 Essential (primary) hypertension; I25.10 Atherosclerotic heart disease of native coronary artery without angina pectoris; I25.2 Old myocardial infarction; J98.4 Other disorders of lung; F32.A Depression, unspecified; G89.29 Other chronic pain; F17.210 Nicotine dependence, cigarettes, uncomplicated; Z71.6 Tobacco abuse counseling; Z99.81 Dependence on supplemental oxygen; Z79.899 Other long term (current) drug therapy
CPT/HCPCS: 36415; 36600; 71045; 71250; 71270; 76376; 80048; 80053; 81003; 82550; 82803; 83036; 83735; 83880; 84145; 84443; 84484; 85025; 85378; 86140; 87071; 87205; 87426; 87804; 87880; 93005; 93306; 93356; 94640; 94644; 94664; 94760; 96365; 96375; 99285; G0378; J0456; J0696; J2919; J7030; Q9967

== ENCOUNTER 2025-02-05 04:20 | Inpatient (IN) | payer MEDICARE, OTHER ==
[~2025-02-05] VITALS: Ht 182.9 cm; Wt 86.9 kg
[2025-02-05] VITALS (12 sets, daily range): BP systolic 118–139; BP diastolic 72–97; PULSE 72–95; RESP 18; TEMP 97.8–98.1; O2SAT 97–98
[~2025-02-05 04:20] MED LIST changes: +BUDE0.5A3 IH; +IPRNEB IH; +METH4TAB3 PO
[2025-02-05 04:42] LABS: IMMATURE GRANULOCYTE ABSOLUTE 0.01 K/uL (0-1); NUCLEATED RED BLOOD CELLS 0.0 % (0.0-0.19); PLATELET COUNT (AUTO) 199 K/uL (130-400); RED BLOOD CELL COUNT(AUTO) 4.90 MIL/uL (4.50-6.20); RED CELL DISTRIBUTION WIDTH 15.5 % (11.0-15.5); WHITE BLOOD COUNT (AUTO) 5.7 K/uL (4.8-10.8)
[2025-02-05 05:02] LABS: CREATINE KINASE, TOTAL 54.0 U/L (21-232); CREATININE 0.9 mg/dL (0.5-1.3); GLOMERULAR FILTR. RATE CALC 92.0 mL/min (>90); GLUCOSE,RANDOM 130.0 mg/dL (70-105); SODIUM SERUM 137.0 mmol/L (136-145); UREA NITROGEN, BLOOD 13.0 mg/dL (7-18)
--- NOTE | 2025-02-05 05:02 | ERN ---
ED Note History of Present Illness Stated Complaint: CHEST PAIN Chief Complaint: Chest Pain Time Seen by MD: 04:38 Dictation: This is a 69-year-old morbidly obese male who presented to the emergency room via EMS with complaints of chest pain and a sensation that he has to defecate th at woke him up from sleep. Apparently these with a similar presentations when he had [place] 7 times in the past. He has a known history of coronary artery disease and had CABG. He denied any diaphoresis presyncope or palpitations. Temperature 98 pulse 80 respirations 16 blood pressure 126/83 with a pulse oximetry of 96% on room air His other active problems include COPD, atrial fibrillation, hypertension, hypercholesterolemia, coronary artery disease status post CABG. 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 Allergies: Coded Allergies: morphine (Unverified Allergy, Unknown, 08/18/22) Home Meds Active Scripts Methylprednisolone (Medrol) 4 Mg Tab.ds.pk, 1 TAB PO AD for 6 Days, #21 TAB 0 Refills 6 on day 1 then reduce by one tablet daily until gone Prov:EVIE FONTENOT MD 01/15/25 Ipratropium [place] (Atrovent Neb Soln) 0.2 Mg/Ml (0.02 %) Soln, 0.5 MG IH [id number], #2 ML Prov:EVIE FONTENOT MD 01/15/25 Budesonide (Budesonide) 0.5 Mg/2 Ml Ampul.neb, 0.5 MG IH BID, #2 " 1 Refill Prov:EVIE FONTENOT MD 01/15/25 Reported Medications Metoprolol Succinate (Metoprolol Succinate) 100 Mg Tab.er.24h, 1 TAB PO DAILY for 30 Days, #30 TAB 0 Refills 02/05/25 Gabapentin (Gabapentin) 400 Mg Capsule, 800 MG PO TID, CAP 08/18/22 Isosorbide Mononitrate (Isosorbide Mononitrate ER) 30 Mg Tab.er.24h, 30 MG PO DAILY, TAB 08/18/22 Famotidine (Famotidine) 20 Mg Tablet, 20 MG PO BID, TAB 4/6/23 Citalopram Hydrobromide (Citalopram HBr) 20 Mg Tablet, 20 MG PO DAILY, TAB 08/18/22 [Vitamin D3] No Conflict Check, 1000 UNITS PO DAILY 08/18/22 Tramadol Hcl (Tramadol HCl) 50 Mg Tablet, 50 MG PO QID PRN for PAIN, TAB 08/18/22 Atorvastatin Calcium (LIPITOR) 80 Mg Tablet, 80 MG PO HS, TAB 08/18/22 Rivaroxaban (Xarelto) 20 Mg Tablet, 20 MG PO PCLUNCH, TAB 08/18/22 Discontinued Reported Medications Metoprolol Succinate (Metoprolol Succinate) 50 Mg Tab.er.24h, 50 MG PO BID, TAB 08/18/22 Past Medical History Past Medical History: A-Fib, CAD, COPD, High Cholesterol, Hypertension Surgical History: Other Family History: Negative Social History: Smokers RN Note Reviewed/Agreed w/PFSH: Yes Review of System Dictation Constitutional: Negative for fever,chills, and weight loss Eyes: Negative for injury, pain,redness, and discharge ENT: Negative for injury,pain or swelling Cardiovascular: Positive for chest pain, denied palpitations, and edema positive for left arm pain Respiratory: Positive for based shortness of breath, cough, and occasion wheezing, Abdomen/GI: Negative for abdominal pain, nausea, vomiting, diarrhea, and constipation Back: Negative for injury and pain : Negative for injury, bleeding and discharge MS/Extremity: Negative for injury and deformity Skin: Negative for rash, and discoloration Neuro: Negative for headache, weakness, numbness, tingling, and seizure Psych: Negative for suicide ideation, homicidal ideation, and hallucinations Initial Vital Sign VS Vital Signs Date Time Temp Pulse Resp B/P (MAP) Pulse Ox O2 Delivery O2 Flow Rate FiO2 02/05/25 04:22 98.1 80 16 126/83 96 Room Air 0 02/05/25 05:57 21 Physical Exam Dictation General: awake, alert, NAD Head/Face: Normocephalic, atraumatic Eyes: PERRL, EOMI, vision at baseline ENT: oral cavity clear, TMs clear, no signs of infection Neck: Trachea midline, supple, no nuchal rigidity Cardiovascular: RRR, normal S1/S2, No MRGs, no JVD Respiratory: Prolonged expiratory phase with a a few end expiratory wheezes to auscultation no respiratory distress, Abdomen: Soft, non-tender, non-distended, normal bowel sounds, no guarding or rebound. Skin: Warm, dry, normal turgor, no rash MS/Extremity: Pulses equal, no cyanosis, neurovascular intact, FROM Neuro: COAx4, GCS 15, strength 5/5, CN 2-12 intact, normal cerebellar exam, normal gait, Psych: Normal behavior, mood, and affect normal Extremities-trace edema without any palpable cords, Homans sign is negative Results (Laboratory/Radiology) Laboratory/Radiology Laboratory Tests Test 02/05/25 04:34 02/05/25 08:21 02/05/25 08:42 02/05/25 10:49 White Blood Count 5.7 K/uL (4.8-10.8) Red Blood Count 4.90 MIL/uL (4.50-6.20) Hemoglobin 14.3 g/dL (14.0-18.0) Hematocrit 41.3 % (42-54) L Mean Corpuscular Volume 84.3 fL (79-99) Mean Corpuscular Hemoglobin 29.2 pg (27.0-33.0) Mean Corpuscular Hemoglobin Concent 34.6 g/dL (32.0-36.0) Red Cell Distribution Width 15.5 % (11.0-15.5) Platelet Count 199 K/uL (130-400) Mean Platelet Volume 9.9 fL (7.5-10.5) Immature Granulocyte % (Auto) 0.2 % (0-1) Neutrophils (%) (Auto) 51.9 % (40.0-77.0) Lymphocytes (%) (Auto) 34.6 % (21.0-51.0) Monocytes (%) (Auto) 7.9 % (3.0-13.0) Eosinophils (%) (Auto) 4.7 % (0.0-8.0) Basophils (%) (Auto) 0.7 % (0.0-5.0) Neutrophils # (Auto) 3.0 K/uL (1.8-7.7) Lymphocytes # (Auto) 2.0 K/uL (1.0-4.8) Monocytes # (Auto) 0.5 K/uL (0.1-1.0) Eosinophils # (Auto) 0.27 K/uL (0.00-0.70) Basophils # (Auto) 0.04 K/uL (0.00-0.20) Absolute Immature Granulocyte (auto 0.01 K/uL (0-1) Nucleated Red Blood Cells 0.0 % (0.0-0.19) Sodium Level 137 mmol/L (136-145) Potassium Level 3.7 mmol/L (3.5-5.1) Chloride Level 102 mmol/L (101-111) Carbon Dioxide Level 28 mmol/L (21-32) Blood Urea Nitrogen 13 mg/dL (7-18) Creatinine 0.9 mg/dL (0.5-1.3) Glomerular Filtration Rate Calc 92 mL/min (>90) Random Glucose 130 mg/dL (70-105) H Total Calcium 8.9 mg/dL (8.5-10.1) Total Creatine Kinase 54 U/L (21-232) # 53 U/L (21-232) Troponin I High Sensitivity 20 ng/L (4-75) 96 ng/L (4-75) *H 165.8 ng/L (4-75) *H Erythrocyte Sedimentation Rate 20 MM/HR (0-20) Prothrombin Time 11.7 SEC (9.6-11.6) H Prothromb Time International Ratio 1.12 (0.85-1.15) Activated Partial Thromboplast Time 35.3 SEC (26.3-35.5) Hemoglobin A1c 6.5 % (4.0-6.0) H Estimated Average Glucose (eAG) 140 mg/dL (70-126) H Magnesium Level 2.10 mg/dL (1.80-2.40) Total Bilirubin 0.5 mg/dL (0.2-1.0) Direct Bilirubin 0.1 mg/dL (0.0-0.3) Aspartate Amino Transf (AST/SGOT) 20 U/L (10-37) Alanine Aminotransferase (ALT/SGPT) 21 U/L (12-78) Alkaline Phosphatase 166 U/L (50-136) H C-Reactive Protein, Quantitative 4.70 mg/L (0.5-3.0) H Total Protein 6.3 g/dL (6.0-8.3) Albumin 2.9 g/dL (3.5-5.0) L Triglycerides Level 105 mg/dL (30-200) Cholesterol Level 118 mg/dL (<200) LDL Cholesterol 75 mg/dL (0-99) HDL Cholesterol 28 mg/dL (29-71) L Procalcitonin < 0.05 ng/mL (0.05-0.5) L Urine Color YELLOW (YELLOW) Urine Appearance CLEAR (CLEAR) Urine pH 6.0 (5.0-8.0) Urine Specific [place] 1.012 (1.001-1.031) Urine Protein NEGATIVE mg/dL (NEGATIVE) Urine Glucose (UA) NEGATIVE mg/dL (NEGATIVE) Urine Ketones NEGATIVE mg/dL (NEGATIVE) Urine Occult Blood NEGATIVE (NEGATIVE) Urine Nitrate NEGATIVE (NEGATIVE) Urine Bilirubin NEGATIVE mg/dL (NEGATIVE) Urine Urobilinogen 3 mg/dL (0.2-1.0) H Urine Leukocyte Esterase NEGATIVE [place]/uL Urine RBC 2-5 /HPF (0-1) H Urine WBC 0-1 /HPF (0-1) Urine Bacteria None /HPF (None Seen) Test 02/05/25 14:32 02/05/25 17:07 Activated Partial Thromboplast Time 34.3 SEC (26.3-35.5) Total Creatine Kinase 53 U/L (21-232) Troponin I High Sensitivity 268.6 ng/L (4-75) *H Labs Reviewed?: Yes EKG Comment: Twelve lead EKG done on 02/05/2025 at 4:26 a.m. shows a heart rate of 85, QRS duration 88, QT/QTC 376/448. Impression atrial fibrillation rate controlled with a occasional PVCs. Overall somewhat low voltage poor progression of the R-waves. No acute ST-T elevations or deep ST depressions noted. EKG rhythm strip shows atrial fibrillation low voltage nonspecific ST-T changes. Interpreted by ER MD Dr. Frey X-RAY Comment: MOLINA: CHEST PAIN ORDERING PHYSICIAN: NIKO FREY MD PROCEDURE: CXR1VW - CHEST 1VW EXAM: CR Chest, 2 views. CLINICAL HISTORY: Chest pain. COMPARISON: Chest radiograph dated 01/13/2025. FINDINGS: Incidental azygous fissure. Stable mild to moderate COPD. The lungs show no infiltrates or other acute findings. No pleural effusion or pneumothorax. The cardiomediastinal silhouette is within normal limits. No acute osseous abnormality. IMPRESSION: No acute cardiopulmonary process is evident. Incidental azygous fissure. Stable mild to moderate COPD. Compared to the prior study, there is no significant interval change. /[place] DICTATED BY: JOHANNY JOHNSON Jr., MD DATE: 02/05/25618 ELECTRONICALLY SIGNED BY: JOHANNY JOHNSON Jr., MD DATE: 02/05/25618 ED Course ED Course Orders Procedure Category Date Status Time Vital Signs Per CPOE 02/05/25 Transmitted Routine 04:35 Chest 1vw RAD 02/05/25 Resulted 04:35 12 Lead Ekg Tracing- EKG 02/05/25 Complete Technical 04:35 Oxygen By Nc/Pulse Ox CPOE 02/05/25 Transmitted 04:35 Maintain Iv CPOE 02/05/25 Transmitted 04:35 Iv Insertion CPOE 02/05/25 Transmitted 04:35 Cardiac Monitoring CPOE 02/05/25 Transmitted 04:35 Pulse Oximetry With CPOE 02/05/25 Transmitted Vs And Prn 04:35 Cbc With Differential LAB 02/05/25 Complete 04:35 Activity: Br W/Brp CPOE 02/05/25 Transmitted With Assist 04:35 Creatine Kinase, Total LAB 02/05/25 Complete 04:35 Troponin I High LAB 02/05/25 Complete Sensitivity 04:35 Urinalysis Profile LAB 02/05/25 Complete 04:35 Basic Metabolic Panel LAB 02/05/25 Complete 04:35 Ipratropium/Albuterol PHA 02/05/25 Complete Neb (Duoneb) 05:00 Troponin I High LAB 02/05/25 Complete Sensitivity 07:23 Aspirin 325mg Tab PHA 02/05/25 Complete (Aspirin 325mg Tab) 09:00 Admit Orders ADM 02/05/25 Transmitted 09:21 Telemetry Monitoring CPOE 02/05/25 Transmitted 09:21 Cardiac Panel LAB 02/05/25 Complete 11:00 Cardiac Panel LAB 02/05/25 Complete 17:00 Fall Precautions CPOE 02/05/25 Transmitted 09:21 Aspiration Precautions CPOE 02/05/25 Transmitted 09:21 Elevate Hob At 30 CPOE 02/05/25 Transmitted Degrees 09:21 Pantoprazole 40mg Inj PHA 02/05/25 In Process (Protonix 40mg Inj 09:30 Budesonide 0.5 Mg/2 PHA 02/05/25 Complete Ml Inh (Pulmicort 0. 09:30 *Nursing CPOE 02/05/25 Transmitted Communication: 09:23 Nitroglycerin 0.4mg PHA 02/05/25 In Process Sl Tab (Nitrostat) 09:30 Acetaminophen 325 Tab PHA 02/05/25 In Process (Tylenol 325mg Tab 09:30 Ondansetron 4mg Inj PHA 02/05/25 In Process (Zofran 4mg Inj) 09:30 Initiate Po MICHAEL 02/05/25 In Process Hypokalemia Protoc 09:23 Potassium Chloride PHA 02/05/25 In Process 20meq/100ml ([place] 09:30 Potassium Chl 10% PHA 02/05/25 In Process Elixir 20meq (Kcl 10% 09:30 Potassium Chloride PHA 02/05/25 In Process 20meq Er (K-Dur/Klor- 09:30 Notify Physician If CPOE 02/05/25 Transmitted There Is 09:23 Notify Md On The Next CPOE 02/05/25 Transmitted 09:23 Notify Md On The CPOE 02/05/25 Transmitted Next(Cont.) 09:23 Pt And Ptt LAB 02/05/25 Complete 09:23 Hemoglobin A1c LAB 02/05/25 Complete 09:23 Metoprolol Succinate PHA 02/05/25 In Process (Toprol Xl) 09:30 Erythrocyte Sed Rate LAB 02/05/25 Complete 09:28 Procalcitonin LAB 02/05/25 Complete 09:28 Ipratropium 0.5 PHA 02/05/25 In Process Mg/2.5 Ml Inh 12:00 Vital Signs(Adult CPOE 02/05/25 Transmitted Hospitalist) 09:31 Daily Weights CPOE 02/05/25 Transmitted 09:31 I&O Q Shift CPOE 02/05/25 Transmitted 09:31 Condition: CPOE 02/05/25 Transmitted 09:31 Apply Scds CPOE 02/05/25 Transmitted 09:31 Echo 2-D Complete ECHO 02/05/25 Taken 09:32 Aspirin 81mg Ec Tab PHA 02/06/25 In Process (Aspirin 81mg Ec Tab 09:00 Cbc With Differential LAB 02/06/25 Verified 04:00 Comprehensive LAB 02/06/25 Verified Metabolic Panel 04:00 Magnesium LAB 02/06/25 Verified 04:00 Nicotine 7mg Patch PHA 02/06/25 In Process (Nicoderm) 09:00 Hepatic Function Panel LAB 02/05/25 Complete 09:52 Crp Quantitative LAB 02/05/25 Complete 09:52 Lipid Panel LAB 02/05/25 Complete 09:52 Magnesium LAB 02/05/25 Complete 09:52 Cardiology Consult CONPHYSVC 02/05/25 Transmitted 10:15 Gi Soft/[place] Diet DIET 02/05/25 Transmitted Lunch *Nursing CPOE 02/05/25 Transmitted Communication: 10:30 Atorvastatin 40mg PHA 02/05/25 In Process (Lipitor 40mg) 21:00 Budesonide 0.5 Mg/2 PHA 02/05/25 In Process Ml Inh (Pulmicort 0. 12:00 Isosorbide [place] 30mg PHA 02/05/25 In Process Sr Tab (Imdur 30mg 11:00 Initiate Heparin MICHAEL 02/05/25 In Process Treatment Pro 11:30 Heparin 5,000 Unit PHA 02/05/25 In Process Vial (Heparin 5,000 U 14:00 Heparin 25,000 PHA 02/05/25 In Process Units/250ml D5w 14:00 Heparin Protocol CPOE 02/05/25 Transmitted Monitoring 14:00 *Nursing CPOE 02/05/25 Transmitted Communication: 11:30 Citalopram 20 Mg PHA 02/06/25 In Process Tablet (Celexa 20mg 09:00 Tramadol Hcl (Ultram) PHA 02/05/25 In Process 12:00 (Nf) Gabapentin PHA 02/05/25 Complete 14:00 Gabapentin 300 Mg Cap PHA 02/05/25 In Process (Neurontin 300 Mg 14:00 Gabapentin 100 Mg Cap PHA 02/05/25 In Process (Neurontin 100 Mg 14:00 *Nursing CPOE 02/05/25 Transmitted Communication: 12:45 Nothing By Mouth DIET 02/06/25 Transmitted Lunch Clip Groins From Umb CPOE 02/05/25 Transmitted To Knee 12:45 Notify Contrast CPOE 02/05/25 Transmitted Allgy/Abn Labs 12:45 Pre-Cath(Heart) Check CPOE 02/05/25 Transmitted List 12:45 Schedule Or Consented CPOE 02/05/25 Transmitted Surgery 12:45 Obtain Consent For: CPOE 02/05/25 Transmitted 13:00 Plateman Procedure CATH 02/06/25 Logged Request 10:30 12 Lead Ekg Tracing- EKG 02/05/25 Complete Technical 13:33 Partial LAB 02/05/25 Complete Thromboplastin Time 14:00 Partial LAB 02/05/25 Logged Thromboplastin Time 23:00 Current Medications Medications (Trade) Dose Ordered Sig/Kamila Route PRN Reason Start Time Stop Time Status Last Admin Dose Admin Albuterol (DUOneb) 1 UDVIAL ONCE ONCE IH 02/05/25 05:00 02/05/25 05:02 DC 02/05/25 05:06 Aspirin (Aspirin 325mg Tab) 325 mg ONCE ONCE PO 02/05/25 09:00 02/05/25 09:01 DC 02/05/25 09:30 Vital Signs Date Time Temp Pulse Resp B/P (MAP) Pulse Ox O2 Delivery O2 Flow Rate FiO2 02/05/25 19:34 98.1 89 18 122/80 98 Room Air 02/05/25 18:41 95 18 N/A Room Air 02/05/25 18:40 95 18 02/05/25 16:07 97.9 86 18 118/80 97 Room Air 02/05/25 12:00 97.9 76 18 139/72 98 Room Air 02/05/25 11:11 82 18 02/05/25 11:10 18 N/A Room Air 02/05/25 11:07 98 Room Air* 0 02/05/25 08:36 98.4 79 18 124/86 98 Room Air* 0 02/05/25 05:57 98.4 79 18 98/64 98 Room Air* 0 02/05/25 05:07 78 18 02/05/25 04:22 98.1 80 16 126/83 96 Room Air 0 We will perform diagnostic labs, advanced imaging and administer medications according to the patient's complaint. Once the results are available, will review and personally interpreted the labs to rule out any acute life- threatening emergency the trach require immediate intervention and treatment. I will then re-evaluate the patient after treatment and diagnostic exams have return to determine whether the patient requires any further testing, can safely be discharged home or need further admission to hospital for additional treatment and evaluation. 7:00 a.m. Care transferred to Dr. Ethan alvarez. BNP 7, troponins are all pending at the time of sign-out HEART Score Response (Comments) Value History: High suspicion (+2) 2 EKG: Repolarization changes 1 Age: > 65yrs (+2) 2 Risk Factors: 3+ risk factors (+2) 2 Initial Troponin: Normal limit (0) 0 HEART Score Risk: Mod Risk for MACE (4-6) Total 7 Medical Decision Making MDM Differential diagnosis: [place]-STEMI, non-STEMI, gastroesophageal reflux disease, pulmonary disease This is a 69-year-old morbidly obese male who presented to the emergency room via EMS with complaints of chest pain and a sensation that he has to defecate that woke him up from sleep. Apparently these with a similar presentations when he had [place] 7 times in the past. He has a known history of coronary artery disease and had CABG. He denied any diaphoresis presyncope or palpitations. Temperature 98 pulse 80 respirations 16 blood pressure 126/83 with a pulse oximetry of 96% on room air His other active problems include COPD, atrial fibrillation, hypertension, hypercholesterolemia, coronary artery disease status post CABG. 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 CBC is with a normal limits. 5:20 a.m. chest x-ray shows COPD changes but no acute infiltrate or pleural effusions. Echocardiogram done on 01/12/2025 showed an ejection fraction of 55%, LVH and RV dilatation. BNP 7 is pending BNP 7 is with a normal limits with a troponin level of 20. I updated the patient and spouse about the lab findings in the EKG however he has a very high-risk patient for a new coronary event and recommended a repeat troponin and perhaps admission They both were agreeable Rationale: Tests considered and ordered secondary to shared decision making in clude: labs, ECG and radiology Previous outside records reviewed: Old ER visits. Risk of complication and/or morbidity or mortality of patient management: None Medications-Per medication reconciliation Need for hospitalization: Patient does meet criteria for hospitalization. Need for emergency major/minor surgery: No There are no social concerns with this patient. Prescription drug management Prescriptions will include symptomatic care Patient's prior external medical records from other ER visits were reviewed by me as indicated. Prior testing and results from previous visits were reviewed. Prior tests were taken into account with medical decision making and resource utilization, independent historian/historians were used to obtain complete medical history. I independently interpreted the test that were performed, results were reviewed by me and considered findings on radiology if ordered. Medical management and examination interpretation discussions were had by me with other qualified healthcare professionals as indicated for the patient's care. Dr. Alvarez: I took over care pending a repeat troponin. Repeat troponin is eleva jacquie at 90, 4 times from before. I spoke with the patient, he is having no active chest pain. Given an aspirin. We will admit for NSTEMI. Problem List Problem List: (1) ACS (acute coronary syndrome) (2) History of atrial fibrillation (3) NSTEMI (non-ST elevated myocardial infarction) DX & DISP Disposition: Inpatient Decision to Admit Time: 05:01 Departure Impression: Primary Impression: NSTEMI (non-ST elevated myocardial infarction) Additional Impressions: History of atrial fibrillation, ACS (acute coronary syndrome) Critical Time: 30 minutes (Critical Care Procedure NoteAuthorized and Performed by: meTotal critical care time: Approximately 36 minutesDue to a high probability of clinically significant, life threatening deterioration, the patient required my highest level of preparedness to intervene emergently and I personally spent this critical care time directly and personally managing the patient. This critical care time included obtaining a history; examining the patient; pulse oximetry; ordering and review of studies; arranging urgent treatment with development of a management plan; evaluation of patient's response to treatment; frequent reassessment; and, discussions with other providers.This critical care time was performed to assess and manage the high probability of imminent, life-threatening deterioration that could result in multi-organ failure. It was exclusive of separately billable procedures and treating other patients and teaching time.Please see MDM section and the rest of the note for further information on patient assessment and treatment.) Condition: Stable Additional Instructions: Patient was informed of all the diagnostic labs and procedures conducted in the emergency room today and demonstrated understanding of the results. I personally reviewed and interpreted all the diagnostic exams performed in the ER today. The patient will be admitted to the hospital for further treatment and evaluation. Disposition-admit to facility Condition-stable/guarded Course-uncertain at this time Pain status-decreased Assessment-exam unchanged Admission Certification- I certify that the patients status is appropriate and is based on my best clinical judgment and the patient's condition as documented in the medical records Referrals: MIGUEL JACKSON MD (PCP) NIKO FREY MD Feb 05, 2025 05:02 ETHAN ALVAREZ DO Feb 05, 2025 08:58
--- NOTE | 2025-02-05 05:20 | HMCIMG ---
EXAM: CR Chest, 2 views. CLINICAL HISTORY: Chest pain. COMPARISON: Chest radiograph dated 01/13/2025. FINDINGS: Incidental azygous fissure. Stable mild to moderate COPD. The lungs show no infiltrates or other acute findings. No pleural effusion or pneumothorax. The cardiomediastinal silhouette is within normal limits. No acute osseous abnormality. IMPRESSION: No acute cardiopulmonary process is evident. Incidental azygous fissure. Stable mild to moderate COPD. Compared to the prior study, there is no significant interval change. /Melvin
--- NOTE | 2025-02-05 08:06 | EKG ---
[facility] Test Date: 2025-02-05 Test Time: 04:26:10 Pat Name: MELISSA MARIN Department: ED Room: 203 Gender: M [employer] Hand: [id number] : 1955 Requested By: NIKO ARIAS Order Number: [id number] Reading MD: Kelly Fuentes Measurements Intervals [place] Rate: 85 P: 0 WI: 0 QRS: 34 QRSD: 88 T: 53 QT: 376 QTc: 448 Interpretive Statements Atrial fibrillation Ventricular premature complex Low voltage, extremity leads Compared to ECG 01/10/2025 04:33:04 Ventricular premature complex(es) now present Low QRS voltage now present Aberrant conduction of supraventricular beat(s) no longer present Electronically Signed On 02-07-2025 08:35:12 CDT by Kelly Fuentes Please click the below link to view image of tracing.
[2025-02-05 08:58] LABS: APPEARANCE,URINE CLEAR (CLEAR); GLUCOSE, URINE (UA) NEGATIVE (NEGATIVE); LEUKOCYTE ESTERASE ,URINE NEGATIVE Leu/uL (NEGATIVE); NITRATE,URINE NEGATIVE (NEGATIVE); OCCULT BLOOD,URINE NEGATIVE (NEGATIVE)
[2025-02-05 09:02] LABS: ADD UA MICROSCOPIC YES
[2025-02-05] MEDS: ASPIRIN 325MG TAB PO ONE (09:30)
[2025-02-05] MEDS ORDERED: NITROGLYCERIN 0.4 MG SL TAB SL PRN (09:30)
[2025-02-05] MEDS ORDERED: PoTASSium chl 10% ELIXIR 20MEQ 20 MEQ/15 ML UDCUP PO PRN (09:30)
[2025-02-05] MEDS ORDERED: BUDESONIDE 0.5 MG/2 ML INH IH SCH (09:30)
--- NOTE | 2025-02-05 09:51 | HP ---
[facility] PHYS[facility] Date of Service: Feb 05, 2025 Time of Service: 09:43 HISTORY OF PRESENT ILLNESS: Date of service: 02/05/2025, patient was seen in ER room 14 This is a 69-year-old male history of COPD/chronic bronchitis, history of chronic atrial fibrillation maintained on chronic anticoagulation with Xarelto, history of OR x7, history of coronary artery disease with prior history of multiple PCIs, BPH, active tobacco use who presented to the ER for further evaluation of pain and pressure involving the left arm along with tightness around the left side of the neck and some chest pressure that woke him up at night from sleep. Patient reports having prior history of OR with symptoms similar to current presentation. In addition to the left arm pain, he felt like he needed to have a bowel movement. Patient is followed by Dr. Dorsey with Cardiology as outpatient. His last coronary stent was in 2019 were per , three stents were placed. He has had prior history of multiple MIs previously. He was recently admitted in [facility] for management of COPD exacerbation in late December,. Patient denies any significant wheezing. Cough is at baseline. Patient denies any fevers or chills otherwise. Denies significant shortness of breath and states that his COPD is not flaring up. Patient reports having history of atrial fibrillation and is maintained on Xarelto 20 mg which he takes with at lunchtime. His last dose of Xarelto was at 2:00 p.m. yesterday. Patient denies being on any antiplatelet therapy otherwise. Presentation, patient was noted to be afebrile with T-max of 98.1 F, heart rate of 80, blood pressure of 126/83. EKG showed findings of atrial fibrillation with PVC. Labs on presentation showed WBC count of 5700, hemoglobin of 14.3, platelet count of [id number]. BMP showed sodium of 137, potassium 3.7, chloride of 102, CO2 of 28, BUN of 13 , creatinine of 0.9, blood glucose of 130, initial cardiac troponin was noted to be at 20 and the 2nd set troponin was noted to be elevated at 96. Chest x-ray showed no acute infiltrates Patient will be admitted for further evaluation of ACS/NSTEMI. Consultation with Dr. Garcia with Cardiology will be requested. We will see how patient progresses in the next 48-72 hours, we will await cardiac evaluation and see if patient needs coronary angiography this admission. REVIEW OF SYSTEMS CONSTITUTIONAL: Denies fevers, chills, or night sweats. No unintentional weight loss reported. NEUROLOGICAL: Denies headache, amaurosis fugax, motor weakness, sensory deficit, vertigo/spinning sensation, gait abnormalities, or tremors. ENT: No hearing loss, otalgia, otorrhea, rhinitis, rhinorrhea, hoarseness, or sore throat. CARDIOVASCULAR: Left arm pain, left neck pressure, reports having previous history of OR, history of chronic atrial fibrillation PULMONARY: Denies any shortness of breath, cough, phlegm/sputum, hemoptysis, pleuritic chest pain. SLEEP: Denies morning headaches, daytime somnolence or napping. Denies difficulty falling asleep, staying asleep, waking from sleep. Denies knowledge of snoring. GASTROINTESTINAL: Denies any type of dysphagia to either liquids or solids. Denies nausea, vomiting, pyrosis, early satiety, abdominal pain, diarrhea, constipation, or changes in stool consistency or caliber. Denies coffee-ground emesis, hematemesis, hematochezia, or melanotic stools. GENITOURINARY: Denies frequency, urgency, nocturia, hematuria or incontinence (Storage/Irritative symptoms.) Low urinary stream, straining to void, urinary intermittency or hesitancy, splitting of the voiding stream, terminal dribbling. ENDOCRINOLOGIC: Denies polyuria, polydipsia, polyphagia or heat/cold intolerances. HEMATOLOGIC: Denies thrombophilia/previous clots, or coagulopathy/bleeding disorders. ONCOLOGIC: Denies personal history of malignancy. DERMATOLOGIC: Denies rashes or pruritus. PSYCHIATRIC: Denies any suicidal or homicidal ideation. Denies hallucinations. PAST MEDICAL HISTORY History of chronic COPD with emphysema/bronchitis Chronic tobacco use disorder History of chronic atrial fibrillation maintained on chronic anticoagulation with Xarelto History of coronary artery disease History of prior myocardial infarction, per patient x7 History of back pain secondary to a fracture in 1975 Myocardial infarction in 1995 BPH PAST SURGICAL HISTORY Reports having had PCI for coronary artery disease in 2012, 2019 Reports having history of ankle surgery, left ankle History of abdominal hernia surgery Reports having history abdominal aortic stent placement ALLERGIES No known allergies- Morphine Unverified SOCIAL HISTORY SMOKING: Currently smoking five to cigarettes daily, patient reports having chronic history of smoking since the age of 15 of about one pack a day Alcohol - denies significant alcohol consumption 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 Allergies: Patient reports having adverse reaction to morphine Home medications: Patient reports being on anticoagulation with Xarelto, reports being on metoprolol succinate 50 mg twice daily, family will be bringing list of home medications to be Coded Allergies: morphine (Unverified Allergy, Unknown, 08/18/22) PHYSICAL EXAM GENERAL APPEARANCE: The patient is awake, alert, and oriented, in no acute cardiopulmonary distress. NEUROLOGICAL: Cranial nerves II-XII grossly intact. Motor is 5/5 in bilateral upper and lower extremities proximal to distal. No sensory deficits. HEENT: Face is symmetric. Pupils are equal and reactive. Extraocular movements are intact. NECK: Supple. No JVD. No thyromegaly. No submental, submandibular, pre- /postauricular, occipital or supraclavicular lymphadenopathy. CHEST: Normal chest expansion. No Telemetry. LUNGS: Absence of any rales, rhonchi or any wheezing. CARDIOVASCULAR: Irregularly irregular. S1 and S2 normal. No appreciable rubs, murmurs or gallops. ABDOMEN: Soft, nontender, and nondistended. There is no rebound, voluntary guarding, or rigidity. : Deferred. No Wisdom. EXTREMITIES: Non-edematous and not cyanotic. No clubbing. Good capillary refill. SKIN: No skin breakdown. Vital Sign (Last 24 Hours) 02/05/25 08:36 Temp 98.4 Pulse 79 Resp 18 B/P (MAP) 124/86 Pulse Ox 98 O2 Delivery Room Air* O2 Flow Rate 0 FiO2 21 LABS: Laboratory: Test 02/05/25 08:42 02/05/25 08:21 02/05/25 04:34 Range/Units Urine Color YELLOW YELLOW Urine Appearance CLEAR CLEAR Urine pH 6.0 5.0-8.0 Urine Specific [place] 1.012 1.001-1.031 Urine Protein NEGATIVE NEGATIVE mg/dL Urine Glucose (UA) NEGATIVE NEGATIVE mg/dL Urine Ketones NEGATIVE NEGATIVE mg/dL Urine Occult Blood NEGATIVE NEGATIVE Urine Nitrate NEGATIVE NEGATIVE Urine Bilirubin NEGATIVE NEGATIVE mg/dL Urine Urobilinogen 3 H 0.2-1.0 mg/dL Urine Leukocyte Esterase NEGATIVE NEGATIVE Florin/uL Urine RBC 2-5 H 0-1 /HPF Urine WBC 0-1 0-1 /HPF Urine Bacteria None None Seen /HPF Troponin I High Sensitivity 96 *H 4-75 ng/L White Blood Count 5.7 4.8-10.8 K/uL Red Blood Count 4.90 4.50-6.20 MIL/uL Hemoglobin 14.3 14.0-18.0 g/dL Hematocrit 41.3 L 42-54 % Mean Corpuscular Volume 84.3 79-99 fL Mean Corpuscular Hemoglobin 29.2 27.0-33.0 pg Mean Corpuscular Hemoglobin Concent 34.6 32.0-36.0 g/dL Red Cell Distribution Width 15.5 11.0-15.5 % Platelet Count 199 130-400 K/uL Mean Platelet Volume 9.9 7.5-10.5 fL Immature Granulocyte % (Auto) 0.2 0-1 % Neutrophils (%) (Auto) 51.9 40.0-77.0 % Lymphocytes (%) (Auto) 34.6 21.0-51.0 % Monocytes (%) (Auto) 7.9 3.0-13.0 % Eosinophils (%) (Auto) 4.7 0.0-8.0 % Basophils (%) (Auto) 0.7 0.0-5.0 % Neutrophils # (Auto) 3.0 1.8-7.7 K/uL Lymphocytes # (Auto) 2.0 1.0-4.8 K/uL Monocytes # (Auto) 0.5 0.1-1.0 K/uL Eosinophils # (Auto) 0.27 0.00-0.70 K/uL Basophils # (Auto) 0.04 0.00-0.20 K/uL Absolute Immature Granulocyte (auto 0.01 0-1 K/uL Nucleated Red Blood Cells 0.0 0.0-0.19 % Sodium Level 137 136-145 mmol/L Potassium Level 3.7 3.5-5.1 mmol/L Chloride Level 102 101-111 mmol/L Carbon Dioxide Level 28 21-32 mmol/L Blood Urea Nitrogen 13 7-18 mg/dL Creatinine 0.9 0.5-1.3 mg/dL Glomerular Filtration Rate Calc 92 >90 mL/min Random Glucose 130 H 70-105 mg/dL Total Calcium 8.9 8.5-10.1 mg/dL Total Creatine Kinase 54 # 21-232 U/L Current Medications Medications (Trade) Dose Ordered Sig/Kamila Route PRN Reason Start Time Stop Time Status Last Admin Dose Admin Acetaminophen (TYLenol 325MG TAB) 650 mg Q6H PRN PO MILD PAIN (1-3) 02/05/25 09:30 03/07/25 09:29 Aspirin (Aspirin 81mg Ec Tab) 81 mg DAILY PO 02/06/25 09:00 03/08/25 08:59 UNV Budesonide (Pulmicort 0.5 Mg/2ml) 0.5 mg BIDRESP IH 02/05/25 09:30 03/07/25 09:29 Ipratropium Renick (AtrovENT UD) 0.5 MG [id number] IH 02/05/25 12:00 03/07/25 11:59 Metoprolol Succinate (TopROL XL) 50 mg Q12H PO 02/05/25 09:30 03/07/25 09:29 Nitroglycerin (Nitrostat) 0.4 mg AD PRN SL CHEST PAIN 02/05/25 09:30 03/07/25 09:29 Ondansetron HCl (zoFRAN 4MG INJ) 4 mg Q6H PRN IVP NAUSEA/VOMITING 02/05/25 09:30 03/07/25 09:29 Pantoprazole Sodium (PROTonix 40MG INJ) 40 mg Q24H IVP 02/05/25 09:30 03/07/25 09:29 Potassium Chloride 100 ml @ 100 mls/hr AD PRN IV POTASSIUM PROTOCOL 02/05/25 09:30 03/07/25 09:29 Potassium Chloride (K-Dur/Klor-Con 20meq) 20 meq AD PRN PO POTASSIUM PROTOCOL 02/05/25 09:30 03/07/25 09:29 Potassium Chloride (KCl 10% Elixir 20meq/15ml) 20 meq AD PRN PO POTASSIUM PROTOCOL 02/05/25 09:30 03/07/25 09:29 DIAGNOSTICS / RADIOLOGY: SERVICE [id number] REASON: CHEST PAIN ORDERING PHYSICIAN: NIKO ARIAS MD PROCEDURE: CXR1VW - CHEST 1VW EXAM: CR Chest, 2 views. CLINICAL HISTORY: Chest pain. COMPARISON: Chest radiograph dated 01/13/2025. FINDINGS: Incidental azygous fissure. Stable mild to moderate COPD. The lungs show no infiltrates or other acute findings. No pleural effusion or pneumothorax. The cardiomediastinal silhouette is within normal limits. No acute osseous abnormality. IMPRESSION: No acute cardiopulmonary process is evident. Incidental azygous fissure. Stable mild to moderate COPD. Compared to the prior study, there is no significant interval change. /Whittaker DICTATED BY: JOHANNY JOHNSON Jr., MD DATE: 02/05/25618 ELECTRONICALLY SIGNED BY: JOHANNY JOHNSON Jr., MD DATE: 02/05/25618 ASSESSMENT: NSTEMI/ACS, POA History of prior OR x7, POA History of coronary artery disease with history of prior multiple PCIs, POA Active tobacco use disorder with long-term history of smoking, POA History of chronic COPD with chronic bronchitis, POA Hypertension, POA Hyperlipidemia, POA History of BPH, POA History of chronic atrial fibrillation maintained on anticoagulation with Xarelto, POA PVCs, POA PLAN: This is a 69-year-old male presenting with symptoms typical with prior history of ACS/ OR Patient has received aspirin 325 mg in the ER Patient took Xarelto close to 2:00 p.m. yesterday, we will have Cardiology follow up with regards to anticoagulation with heparin drip, I spoke with Dr. Garcia, his recommendation has in case troponin up trend further, we can consider starting anticoagulation with heparin drip after 2:00 p.m. We will keep patient on Protonix for GI prophylaxis Consultation with Dr. Dorsey with Cardiology will be requested We will trend cardiac troponin until it peaks Resume patient's home medications: Metoprolol succinate 50 mg b.i.d., Lipitor, Imdur, we will have home medications updated We will check a lipid panel, A1c 2D echocardiogram will be obtained We will see how patient progresses in the next 24-48 hours, we will have Cardiology follow up with regards to further workup including invasive angiography versus stress test this admission All labs will be repeated in the morning We will maintain potassium greater than four and magnesium greater than two Patient was counseled to quit down on smoking, patient verbalized understanding, patient states that he has working on cutting down more on smoking Date of service: 02/05/2025 Plan of care was discussed with patient and at bedside, John Warren MD Advanced Care Planning: Which of the following were discussed: Hospice care: Yes __ No _X_ Therapeutic options: Yes _X_ No __ Advance directives: Yes _X_ No __ Other discussions: Discussed with who?: Patient Voluntary nature of this service was explained to the patient? Yes _x_ No __ Amount of time spent: 20 minutes JOHN WARREN MD Feb 05, 2025 09:51
[2025-02-05 10:09] LABS: ASPARTATE AMINOTRANSFERASE 20.0 U/L (10-37); LDL DIRECT 75.0 mg/dL (0-99); TOTAL PROTEIN, SERUM 6.3 g/dL (6.0-8.3)
[2025-02-05 10:11] LABS: INR 1.12 (0.85-1.15)
--- NOTE | 2025-02-05 10:12 | NUR ---
UNABLE TO RECONCILE HOME MEDS DUE TO LEAVING AND TAKING LIST WITH HER, PATIENT STATED "SHE'LL COME BACK" PATIENT RESTING IN BED, CALL LIGHT IN REACH
[2025-02-05 11:19] LABS: CREATINE KINASE, TOTAL 53.0 U/L (21-232)
[2025-02-05] MEDS: BUDESONIDE 0.5 MG/2 ML INH IH SCH (11:19)
[2025-02-05] MEDS ORDERED: METO-409 PO (11:40)
[2025-02-05] MEDS: ISOSORBIDE MONO 30MG SR TAB PO SCH (12:36)
--- NOTE | 2025-02-05 13:38 | EKG ---
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
[2025-02-05] MEDS ORDERED: NON-FORMULARY MEDICATION 1 EACH (Gabapentin 800 MG) PO SCH (14:00)
[2025-02-05] MEDS: GABAPENTIN 300 MG CAPSULE PO SCH (14:03)
[2025-02-05 17:28] LABS: CREATINE KINASE, TOTAL 53.0 U/L (21-232)
[2025-02-06] VITALS (22 sets, daily range): BP systolic 109–138; BP diastolic 58–89; PULSE 60–93; RESP 16–19; TEMP 97.7–98.4; O2SAT 96–97
[2025-02-06 04:30] LABS: IMMATURE GRANULOCYTE ABSOLUTE 0.02 K/uL (0-1); NUCLEATED RED BLOOD CELLS 0.0 % (0.0-0.19); PLATELET COUNT (AUTO) 198 K/uL (130-400); RED BLOOD CELL COUNT(AUTO) 4.75 MIL/uL (4.50-6.20); RED CELL DISTRIBUTION WIDTH 15.4 % (11.0-15.5); WHITE BLOOD COUNT (AUTO) 7.0 K/uL (4.8-10.8)
[2025-02-06 04:46] LABS: ASPARTATE AMINOTRANSFERASE 16.0 U/L (10-37); CREATININE 0.9 mg/dL (0.5-1.3); GLOMERULAR FILTR. RATE CALC 92.0 mL/min (>90); GLUCOSE,RANDOM 97.0 mg/dL (70-105); SODIUM SERUM 136.0 mmol/L (136-145); TOTAL PROTEIN, SERUM 6.1 g/dL (6.0-8.3); UREA NITROGEN, BLOOD 11.0 mg/dL (7-18)
[2025-02-06] MEDS: ASPIRIN 81 MG EC TAB PO SCH (08:12)
[2025-02-06] MEDS: NICOTINE 7 MG/ 24 HR PATCH TD SCH (08:12)
--- NOTE | 2025-02-06 10:30 | PN ---
[facility] PROGRESS NOTE Date of Service: Feb 06, 2025 Time of Service: 10:29 SUBJECTIVE: 02/06 patient is seen and examined at bedside, case discussed with the RN, no acute events overnight, the patient remains admitted to the PCU, alert oriented x3 at the time of my visit, hemodynamically stable, he remains on heparin drip, he is currently NPO, awaiting left heart catheterization by Cardiovascular physician. He denies dizziness, no headache, no chest pain, shortness shortness for breath, no nausea, no vomiting, no abdominal pain. at bedside, updated. Continue to follow Cardiology input and recommendation. Echocardiogram to evaluate ejection fraction, report pending. REVIEW OF SYSTEMS CONSTITUTIONAL: Denies fevers, chills, or night sweats. No unintentional weight loss reported. NEUROLOGICAL: Denies headache, amaurosis fugax, motor weakness, sensory deficit, vertigo/spinning sensation, gait abnormalities, or tremors. ENT: No hearing loss, otalgia, otorrhea, rhinitis, rhinorrhea, hoarseness, or sore throat. CARDIOVASCULAR: Left arm pain, left neck pressure, reports having previous history of IL, history of chronic atrial fibrillation PULMONARY: Denies any shortness of breath, cough, phlegm/sputum, hemoptysis, pleuritic chest pain. SLEEP: Denies morning headaches, daytime somnolence or napping. Denies difficulty falling asleep, staying asleep, waking from sleep. Denies knowledge of snoring. GASTROINTESTINAL: Denies any type of dysphagia to either liquids or solids. Denies nausea, vomiting, pyrosis, early satiety, abdominal pain, diarrhea, constipation, or changes in stool consistency or caliber. Denies coffee-ground emesis, hematemesis, hematochezia, or melanotic stools. GENITOURINARY: Denies frequency, urgency, nocturia, hematuria or incontinence (Storage/Irritative symptoms.) Low urinary stream, straining to void, urinary intermittency or hesitancy, splitting of the voiding stream, terminal dribbling. ENDOCRINOLOGIC: Denies polyuria, polydipsia, polyphagia or heat/cold intolerances. HEMATOLOGIC: Denies thrombophilia/previous clots, or coagulopathy/bleeding disorders. ONCOLOGIC: Denies personal history of malignancy. DERMATOLOGIC: Denies rashes or pruritus. PSYCHIATRIC: Denies any suicidal or homicidal ideation. Denies hallucinations. PHYSICAL EXAM GENERAL APPEARANCE: The patient is awake, alert, and oriented, in no acute cardiopulmonary distress. NEUROLOGICAL: Cranial nerves II-XII grossly intact. Motor is 5/5 in bilateral upper and lower extremities proximal to distal. No sensory deficits. HEENT: Face is symmetric. Pupils are equal and reactive. Extraocular movements are intact. NECK: Supple. No JVD. No thyromegaly. No submental, submandibular, pre- /postauricular, occipital or supraclavicular lymphadenopathy. CHEST: Normal chest expansion. No Telemetry. LUNGS: Absence of any rales, rhonchi or any wheezing. CARDIOVASCULAR: Irregularly irregular. S1 and S2 normal. No appreciable rubs, murmurs or gallops. ABDOMEN: Soft, nontender, and nondistended. There is no rebound, voluntary g uarding, or rigidity. : Deferred. No Wisdom. EXTREMITIES: Non-edematous and not cyanotic. No clubbing. Good capillary refill. SKIN: No skin breakdown. Vital Signs (last 8hr) Date Time Temp Pulse Resp B/P (MAP) Pulse Ox O2 Delivery O2 Flow Rate FiO2 02/06/25 08:20 97 Room Air* 0 21 02/06/25 08:00 98.2 74 19 127/63 99 Room Air 02/06/25 06:42 79 18 02/06/25 06:42 79 18 N/A Room Air 21 02/06/25 04:16 98.4 77 18 120/58 97 Room Air LABS: Laboratory: Test 02/06/25 05:49 02/06/25 04:12 02/05/25 17:07 02/05/25 08:42 Range/Units Activated Partial Thromboplast Time 124.0 *H 26.3-35.5 SEC White Blood Count 7.0 4.8-10.8 K/uL Red Blood Count 4.75 4.50-6.20 MIL/uL Hemoglobin 13.5 L 14.0-18.0 g/dL Hematocrit 40.1 L 42-54 % Mean Corpuscular Volume 84.4 79-99 fL Mean Corpuscular Hemoglobin 28.4 27.0-33.0 pg Mean Corpuscular Hemoglobin Concent 33.7 32.0-36.0 g/dL Red Cell Distribution Width 15.4 11.0-15.5 % Platelet Count 198 130-400 K/uL Mean Platelet Volume 9.9 7.5-10.5 fL Immature Granulocyte % (Auto) 0.3 0-1 % Neutrophils (%) (Auto) 55.8 40.0-77.0 % Lymphocytes (%) (Auto) 29.9 21.0-51.0 % Monocytes (%) (Auto) 9.1 3.0-13.0 % Eosinophils (%) (Auto) 4.3 0.0-8.0 % Basophils (%) (Auto) 0.6 0.0-5.0 % Neutrophils # (Auto) 3.9 1.8-7.7 K/uL Lymphocytes # (Auto) 2.1 1.0-4.8 K/uL Monocytes # (Auto) 0.6 0.1-1.0 K/uL Eosinophils # (Auto) 0.30 0.00-0.70 K/uL Basophils # (Auto) 0.04 0.00-0.20 K/uL Absolute Immature Granulocyte (auto 0.02 0-1 K/uL Nucleated Red Blood Cells 0.0 0.0-0.19 % Sodium Level 136 136-145 mmol/L Potassium Level 4.1 3.5-5.1 mmol/L Chloride Level 102 101-111 mmol/L Carbon Dioxide Level 29 21-32 mmol/L Blood Urea Nitrogen 11 7-18 mg/dL Creatinine 0.9 0.5-1.3 mg/dL Glomerular Filtration Rate Calc 92 >90 mL/min Random Glucose 97 70-105 mg/dL Total Calcium 9.1 8.5-10.1 mg/dL Magnesium Level 2.10 1.80-2.40 mg/dL Total Bilirubin 0.8 # 0.2-1.0 mg/dL Aspartate Amino Transf (AST/SGOT) 16 10-37 U/L Alanine Aminotransferase (ALT/SGPT) 21 12-78 U/L Alkaline Phosphatase 161 H 50-136 U/L Total Protein 6.1 6.0-8.3 g/dL Albumin 2.9 L 3.5-5.0 g/dL Total Creatine Kinase 53 21-232 U/L Troponin I High Sensitivity 268.6 *H 4-75 ng/L Urine Color YELLOW YELLOW Urine Appearance CLEAR CLEAR Urine pH 6.0 5.0-8.0 Urine Specific [place] 1.012 1.001-1.031 Urine Protein NEGATIVE NEGATIVE mg/dL Urine Glucose (UA) NEGATIVE NEGATIVE mg/dL Urine Ketones NEGATIVE NEGATIVE mg/dL Urine Occult Blood NEGATIVE NEGATIVE Urine Nitrate NEGATIVE NEGATIVE Urine Bilirubin NEGATIVE NEGATIVE mg/dL Urine Urobilinogen 3 H 0.2-1.0 mg/dL Urine Leukocyte Esterase NEGATIVE NEGATIVE Florin/uL Urine RBC 2-5 H 0-1 /HPF Urine WBC 0-1 0-1 /HPF Urine Bacteria None None Seen /HPF Test 02/05/25 08:21 Range/Units Erythrocyte Sedimentation Rate 20 0-20 MM/HR Prothrombin Time 11.7 H 9.6-11.6 SEC Prothromb Time International Ratio 1.12 0.85-1.15 Hemoglobin A1c 6.5 H 4.0-6.0 % Estimated Average Glucose (eAG) 140 H 70-126 mg/dL Direct Bilirubin 0.1 0.0-0.3 mg/dL C-Reactive Protein, Quantitative 4.70 H 0.5-3.0 mg/L Triglycerides Level 105 30-200 mg/dL Cholesterol Level 118 <200 mg/dL LDL Cholesterol 75 0-99 mg/dL HDL Cholesterol 28 L 29-71 mg/dL Procalcitonin < 0.05 L 0.05-0.5 ng/mL Current Medications Medications (Trade) Dose Ordered Sig/Kamila Route PRN Reason Start Time Stop Time Status Last Admin Dose Admin Acetaminophen (TYLenol 325MG TAB) 650 mg Q6H PRN PO MILD PAIN (1-3) 02/05/25 09:30 03/07/25 09:29 Aspirin (Aspirin 81mg Ec Tab) 81 mg DAILY PO 02/06/25 09:00 03/08/25 08:59 02/06/25 08:12 81 MG Atorvastatin Calcium (LIPItor 40MG) 40 mg HS PO 02/05/25 21:00 03/07/25 20:59 02/05/25 20:50 40 MG Budesonide (Pulmicort 0.5 Mg/2ml) 0.5 mg BIDRESP IH 02/05/25 09:30 02/05/25 10:39 DC Budesonide (Pulmicort 0.5 Mg/2ml) 0.5 mg BIDRESP IH 02/05/25 12:00 03/07/25 11:59 02/06/25 06:40 0.5 MG Citalopram Hydrobromide (CeleXA 20MG TAB) 20 mg DAILY PO 02/06/25 09:00 03/08/25 08:59 02/06/25 08:12 20 MG Gabapentin (NEURontin 100 mg CAP) 200 mg TID PO 02/05/25 14:00 03/07/25 13:59 02/06/25 08:11 200 MG Gabapentin (NEURontin 300 MG CAP) 600 mg TID PO 02/05/25 14:00 03/07/25 13:59 02/06/25 08:12 600 MG Heparin Sodium (Porcine) (HEParin 5,000 UNIT VIAL) *calculation based on ACTUAL B... AD PRN IV HEPARIN PROTOCOL 02/05/25 14:00 03/07/25 13:59 Heparin Sodium/ Dextrose 250 ml @ 0 mls/hr Q6H IV 02/05/25 14:00 03/07/25 13:59 02/05/25 16:51 15.22 MLS/HR Ipratropium Austin (AtrovENT UD) 0.5 MG [id number] IH 02/05/25 12:00 03/07/25 11:59 02/06/25 06:42 0.5 MG Isosorbide Mononitrate (Imdur 30mg Sr) 30 mg DAILY PO 02/05/25 11:00 03/07/25 10:59 02/06/25 08:12 30 MG Metoprolol Succinate (TopROL XL) 50 mg Q12H PO 02/05/25 09:30 03/07/25 09:29 02/06/25 08:12 50 MG Miscellaneous Medication (Gabapentin ) 800 mg TID PO 02/05/25 14:00 02/05/25 11:47 DC Nicotine (Nicoderm) 7 mg DAILY TD 02/06/25 09:00 03/08/25 08:59 Nitroglycerin (Nitrostat) 0.4 mg AD PRN SL CHEST PAIN 02/05/25 09:30 03/07/25 09:29 Ondansetron HCl (zoFRAN 4MG INJ) 4 mg Q6H PRN IVP NAUSEA/VOMITING 02/05/25 09:30 03/07/25 09:29 Pantoprazole Sodium (PROTonix 40MG INJ) 40 mg Q24H IVP 02/05/25 09:30 03/07/25 09:29 02/06/25 08:11 40 MG Potassium Chloride 100 ml @ 100 mls/hr AD PRN IV POTASSIUM PROTOCOL 02/05/25 09:30 03/07/25 09:29 Potassium Chloride (K-Dur/Klor-Con 20meq) 20 meq AD PRN PO POTASSIUM PROTOCOL 02/05/25 09:30 03/07/25 09:29 Potassium Chloride (KCl 10% Elixir 20meq/15ml) 20 meq AD PRN PO POTASSIUM PROTOCOL 02/05/25 09:30 03/07/25 09:29 Tramadol HCl (UltRAM) 50 mg QID PRN PO SEVERE PAIN (7-10) 02/05/25 12:00 02/10/25 11:59 02/06/25 08:11 50 MG DIAGNOSTICS / RADIOLOGY: [ ] ASSESSMENT: NSTEMI/ACS, POA History of prior IL x7, POA History of coronary artery disease with history of prior multiple PCIs, POA Active tobacco use disorder with long-term history of smoking, POA History of chronic COPD with chronic bronchitis, POA Hypertension, POA Hyperlipidemia, POA History of BPH, POA History of chronic atrial fibrillation maintained on anticoagulation with Xarelto, POA PVCs, POA PLAN: NEURO: Minimize central acting medications as possible. Fall Precautions. Well lighted room through the day and minimize interruptions through the night to prevent acute delirium. PULMONARY: Supplemental 02 as needed BiPAP as necessary, for respiratory distress Titrate Fio2 to keep Spo2 > or = 90% DuoNebs and CPT as needed IS hourly while awake for pulmonary hygiene prn Out of bed to chair as tolerated Maintain aspiration precautions at all times CARDIOVASCULAR: Follow hemodynamics. Vital signs per facility protocol GI & NUTRITION: Continue nutritional support Aspirations precautions Prokinetic agents and laxatives as needed KIDNEYS & ELECTROLYTES: Strict monitoring of intake and output Daily weights Avoid nephrotoxic agents Monitor electrolytes and replace as needed Goal urine output of 30mL/hr or 0.5mL/kg/hr Medications to be dosed according to renal function. Avoid contrast if possible ENDOCRINE: Maintain blood glucose between 100-180 at all times. Insulin sliding scale for blood glucose management Hypoglycemia and hyperglycemia protocol in place INFECTIOUS DISEASE: Trend temperature, WBC and procalcitonin level Follow cultures, deescalate antibiotics as soon as possible. Panculture if new onset fever HEMATOLOGY & COAGULATION: Monitor H&H. Keep Hgb > 7 Transfuse 1 unit of PRBC for Hgb < 7 Transfuse 1 pack of platelets of platelets < 20, 000 Watch for any signs and symptoms of bleeding SKIN: Pressure ulcer prevention per facility protocol Specialty mattress as needed ORTHO/REHAB Continue PT/OT PRN: MEDICATIONS Tylenol 650 mg po every 4 hrs for fever zofran 4 mg IV every 6 hrs for n/v Hydralazine 5 mg IV every 4 hrs systolic pressure > 160 bowel regiment: lactulose 20 gm PO BID PRN constipation Supportive measures: Continue GI and DVT prophylaxis Disposition: Left heart catheterization today. All questions answered time spent: > 35 min SUSU VASQUEZ MD Feb 06, 2025 10:30
--- NOTE | 2025-02-06 11:11 | CONS ---
REASON FOR CONSULTATION: To evaluate chest pain. HISTORY OF PRESENT ILLNESS: The patient is an elderly gentleman who is actually well known to me. He has a history of extensive coronary artery disease. I last did a cardiac catheter on him a few years ago. At that time, he had an occluded RCA with collaterals from left to right and diffuse in-stent restenosis of the circumflex. The plan on him was to do a CABG surgery if he has persistent symptoms. He was managed medically for the last few years since then. Unfortunately, he has developed symptoms again. His symptoms are mostly left shoulder and left arm pain. His troponin I is marginally elevated. EKG did not reveal any acute STT changes. He does complain of some shortness of breath when he walks as well. REVIEW OF SYSTEMS: General: No history of weight loss weight gain. Lungs: No history of cough or sputum. Cardiovascular: As above. HOME MEDICATIONS: Listed in the chart. ALLERGIES: No known drug allergies. SOCIAL HISTORY: Denies smoking, alcohol or drugs. FAMILY HISTORY: Noncontributory. PHYSICAL EXAM: GENERAL: An elderly male, alert and oriented x3. No pallor, no cyanosis, no jaundice, no lymphadenopathy, no pitting edema. VITAL SIGNS: Pulse is 70s. Blood pressure is 130s/70s. HEENT EXAM: Normocephalic and atraumatic. Pupils equal, round, reactive to light. NECK: Supple. No thyromegaly, no carotid bruit, no masses. LUNGS: Clear to percussion and auscultation. CARDIOVASCULAR: Peripheral pulses are diminished. No groin bruit, no abdominal bruit, no carotid bruit, no JVD. S1, S2 heard. No S3, no S4, no murmurs, no rubs, no other adventitious sounds. ABDOMEN: Benign. CENTRAL NERVOUS SYSTEM: Nonfocal exam. EXTREMITIES: No pitting edema. LABS: Labs have all been reviewed. FINAL IMPRESSION: * Non-Q IA with unstable angina. * History of ischemic cardiomyopathy with extensive disease and multiple stents in the past. * History of hypertension and hyperlipidemia. * Multiple noncardiac issues. RECOMMENDATION: * We will treat him medically and stabilize him for now. When I saw the patient, he was chest pain-free. We will continue antiplatelet medications, beta blockers, and statins. I will do a 2D echo to evaluate the ejection fraction. * I will plan for cardiac catheterization again on him tomorrow. Procedure, benefits, risks have all been explained to him. He understands and wishes to proceed. If the patient has disease that is amenable, then we will consult CT surgery as planned 3 years ago. TID: [id number] RECEIPT: [id number]
[2025-02-06] MEDS ORDERED: IOHEXOL 350 MG/ML 100ML INFUS..BTL IV ONE (12:02)
[2025-02-06] MEDS ORDERED: LIDOCAINE HCL 400MG/20ML VIAL ONE (12:02)
[2025-02-06] MEDS ORDERED: NITROGLYCERIN 50MG VIAL ONE (12:02)
[2025-02-06] MEDS ORDERED: HEParin-NS 1,000 UNIT/500 ML 1,000 ML IV ONE (12:02)
[2025-02-06] MEDS ORDERED: IOHEXOL-350 50ML VIAL IV ONE (12:10)
--- NOTE | 2025-02-06 13:10 | NUR ---
TRANSFER -HIDE HOUSE SUPERVISOR lab tech RN here to transfer to procedure. Patient transferred now.
[2025-02-06] MEDS ORDERED: MIDAZOLAM HCL 1 MG/ML 2ML VIAL ONE (13:26)
--- NOTE | 2025-02-06 14:25 | HMCSR ---
APPROVED REPORT EXAM: Two-dimensional and M-mode echocardiogram with Doppler and color Doppler. INDICATION ICD: Chest pain R07.9, elevated troponin 2D Dimensions RVDd3.6 cmLVEF(%)53.1 (>50%)LVED Vol(simp.)96.0 mL IVSd0.9 (0.7-1.1cm)FS(%)28 %LVES Vol(simp.)48.0 mL LVDd5.3 (3.8-5.6cm)LA (2D)3.8 (1.6-4.0cm)LVEF(%, simp.)50 % PWd1.1 (0.7-1.1cm)Ao Root(2D)3.7 (2.0-3.7cm)LA ESV INDEX (BP)54.42 mL/m2 IVSs1.2 cmLVOT diam2.6 (1.8-2.4cm) LVDs3.8 (2.5-4.0cm)IVC diam1.8 cm PWs0.9 cm Deformation Strain Apical 4-12.1 % Apical 2-11.3 % Apical 3-17.5 % Global Strain-13.6 % M-Mode Dimensions EPSS0.9 cm LA (MM)3.4 (1.6-4.0cm) Ao Root(MM)3.5 (2.0-3.7cm) Aortic Valve AoV Vmax1.0 m/Camila Peak GR3.8 mmHgLVOT Vmax0.6 m/s AoV VTI0.2 mAo Mean GR2.2 mmHgLVOT VTI0.10 m JAYDA (VMAX)3.03 cm2AVA (VTI) 3.1 cm2 Mitral Valve MV E Vjsp355.2 cm/sDECEL Clbt174 ms P 1/2 T52 ms MVA (PHT)4.2 cm2 TDI E/E' Fpogfy98.9E/E' Kjbcchg17.4 Medial E' Peak V9.45 cm/sLateral E' Peak V10.79 cm/s Pulmonary Valve PV Vmax1.1 m/s PV Peak GR4.7 mmHg Tricuspid Valve RAP (EST) 3 mmHgRVSP3.0 mmHg Left Ventricle The left ventricle is normal size. GLS -14.0%. Mid inferoseptal and anterolateral hypokinesis. Apical septal hypokinesis. There is normal left ventricular wall thickness. LVEF is 50-55%. The LV diastoli c function was unable to be assessed due to atrial arrhythmia. Right Ventricle The right ventricle is normal size. Normal TAPSE and RV S'. The right ventricular systolic function i s normal. Atria The left atrium is severely dilated. The right atrium is severely dilated. Aortic Valve The aortic valve is normal in structure. No aortic regurgitation is present. There is no aortic valvu lar stenosis. Mitral Valve The mitral valve is normal in structure. There is moderate mitral valve regurgitation noted. There is no mitral valve stenosis. Tricuspid Valve The tricuspid valve is normal in structure. There is no tricuspid valve regurgitation noted. Pulmonic Valve The pulmonary valve is normal in structure. There is no pulmonic valvular regurgitation. Great Vessels The aortic root is normal in size. The IVC is normal in size and collapses >50% with inspiration. Pericardium There is no pericardial effusion. Other Information Quality : Technically difficulst study due to body habitus Conclusion The left ventricle is normal size. There is normal left ventricular wall thickness. GLS -14.0%. Mid inferoseptal and anterolateral hypokinesis. Apical septal hypokinesis. LVEF is 50-55%. The LV diastolic function was unable to be assessed due to atrial arrhythmia. The left atrium is severely dilated. There is moderate mitral valve regurgitation noted. There is no aortic valvular stenosis. There is no pericardial effusion.
--- NOTE | 2025-02-06 16:08 | NUR ---
DCP: home met with pt and his Elizabet [phone]. prior to admission, pt was independent drives and active reports . pt has a rollator, scooter shower chair and nebulizer at home. No HH or HD services. PCP is Mo[facility] at [facility] for medical care and meds. states she will take pt home at pa Addendum: 02/06/25 at 1611 by JESE BROWN Amended: Links added.
[2025-02-07] VITALS (14 sets, daily range): BP systolic 95–149; BP diastolic 60–78; PULSE 59–104; RESP 18–20; TEMP 97.4–98.7; O2SAT 96–98
[2025-02-07 05:36] LABS: NUCLEATED RED BLOOD CELLS 0.0 % (0.0-0.19); PLATELET COUNT (AUTO) 210.0 K/uL (130-400); RED BLOOD CELL COUNT(AUTO) 4.89 MIL/uL (4.50-6.20); RED CELL DISTRIBUTION WIDTH 15.2 % (11.0-15.5); WHITE BLOOD COUNT (AUTO) 6.1 K/uL (4.8-10.8)
[2025-02-07 05:51] LABS: ASPARTATE AMINOTRANSFERASE 17.0 U/L (10-37); CREATININE 0.7 mg/dL (0.5-1.3); GLOMERULAR FILTR. RATE CALC 100.0 mL/min (>90); GLUCOSE,RANDOM 82.0 mg/dL (70-105); SODIUM SERUM 137.0 mmol/L (136-145); TOTAL PROTEIN, SERUM 6.3 g/dL (6.0-8.3); UREA NITROGEN, BLOOD 13.0 mg/dL (7-18)
[2025-02-07] MEDS: MAGNESIUM 2GM PREMIX 50ML 50 ML IV ONE (06:09)
[2025-02-07] MEDS: PoTASSium chloRIDE 20MEQ ER 20 MEQ ERTAB PO PRN (06:09)
--- NOTE | 2025-02-07 06:23 | CCATH ---
PREOPERATIVE DIAGNOSIS: unstable angina. PROCEDURES PERFORMED: * Left heart cardiac catheterization. * Left and right coronary artery angiogram. * LV angiography. * Right . * Sedation. * Vascular closure device, right common femoral artery. DRY HOUSE TENDER: Austin Garcia MD DETAILS OF THE PROCEDURE: After informed consent was obtained, the patient was brought to the cardiac catheterization laboratory. Bilateral groins were prepped and draped in sterile fashion. ECG monitoring was established and maintained throughout the procedure. After obtaining adequate local anesthesia in the right groin, a 6-Amharic sheath was inserted into the right common femoral artery using modified Seldinger technique without any problems. Following this, a JL4, then a JL4.5, and then a JR4 diagnostic catheters were all used to obtain cines of the left and right coronary artery and a pigtail catheter was used to do LV angiography in the standard FROST view. FINDINGS: * The right coronary artery has a long segment stent. It is 100% occluded starting at the ostium. There are left to right collaterals seen. * Left main is okay. * LAD is okay. * Diagonal branch is long and big and has an 80% to 90% stenosis in the end. * Circumflex artery is codominant. In the body of the circumflex, there is a stent with 80% to 90% diffuse in-stent restenosis. There are collaterals from this branch to the right coronary artery. * LV angiography reveals normal ejection fraction. EDP is 18. * There is an endoluminal aortic graft seen. * Right below extremity was not visualized. FINAL IMPRESSION: * Normal ejection fraction. * Diagonal, obtuse marginal, circumflex, and RCA disease. RECOMMENDATION: To get evaluated by CT Surgery for a possible CT surgery. Further recommendations based on how the patient does. TID: [id number] RECEIPT: [id number]
--- NOTE | 2025-02-07 10:20 | PN ---
[facility] PROGRESS NOTE Date of Service: Feb 07, 2025 Time of Service: 10:18 SUBJECTIVE: 02/06 patient is seen and examined at bedside, case discussed with the RN, no acute events overnight, the patient remains admitted to the PCU, alert oriented x3 at the time of my visit, hemodynamically stable, he remains on heparin drip, he is currently NPO, awaiting left heart catheterization by Cardiovascular physician. He denies dizziness, no headache, no chest pain, shortness shortness for breath, no nausea, no vomiting, no abdominal pain. at bedside, updated. Continue to follow Cardiology input and recommendation. Echocardiogram to evaluate ejection fraction, report pending. 02/07 the patient has been seen and examined earlier this morning during my rounding, case discussed with the RN, no major acute events overnight, patient complaining of back pain, requesting tramadol. He underwent left heart catheterization 02/06/2025, with findings of multivessel coronary artery disease for which Cardiothoracic surgeon has been consulted. Pending input and recommendations. at bedside, updated. REVIEW OF SYSTEMS CONSTITUTIONAL: Denies fevers, chills, or night sweats. No unintentional weight loss reported. NEUROLOGICAL: Denies headache, amaurosis fugax, motor weakness, sensory deficit, vertigo/spinning sensation, gait abnormalities, or tremors. ENT: No hearing loss, otalgia, otorrhea, rhinitis, rhinorrhea, hoarseness, or sore throat. CARDIOVASCULAR: Left arm pain, left neck pressure, reports having previous history of PR, history of chronic atrial fibrillation PULMONARY: Denies any shortness of breath, cough, phlegm/sputum, hemoptysis, pleuritic chest pain. SLEEP: Denies morning headaches, daytime somnolence or napping. Denies difficulty falling asleep, staying asleep, waking from sleep. Denies knowledge of snoring. GASTROINTESTINAL: Denies any type of dysphagia to either liquids or solids. Denies nausea, vomiting, pyrosis, early satiety, abdominal pain, diarrhea, constipation, or changes in stool consistency or caliber. Denies coffee-ground emesis, hematemesis, hematochezia, or melanotic stools. GENITOURINARY: Denies frequency, urgency, nocturia, hematuria or incontinence (Storage/Irritative symptoms.) Low urinary stream, straining to void, urinary intermittency or hesitancy, splitting of the voiding stream, terminal dribbling. ENDOCRINOLOGIC: Denies polyuria, polydipsia, polyphagia or heat/cold intolerances. HEMATOLOGIC: Denies thrombophilia/previous clots, or coagulopathy/bleeding disorders. ONCOLOGIC: Denies personal history of malignancy. DERMATOLOGIC: Denies rashes or pruritus. PSYCHIATRIC: Denies any suicidal or homicidal ideation. Denies hallucinations. PHYSICAL EXAM GENERAL APPEARANCE: The patient is awake, alert, and oriented, in no acute cardiopulmonary distress. NEUROLOGICAL: Cranial nerves II-XII grossly intact. Motor is 5/5 in bilateral upper and lower extremities proximal to distal. No sensory deficits. HEENT: Face is symmetric. Pupils are equal and reactive. Extraocular movements are intact. NECK: Supple. No JVD. No thyromegaly. No submental, submandibular, pre- /postauricular, occipital or supraclavicular lymphadenopathy. CHEST: Normal chest expansion. No Telemetry. LUNGS: Absence of any rales, rhonchi or any wheezing. CARDIOVASCULAR: Irregularly irregular. S1 and S2 normal. No appreciable rubs, murmurs or gallops. ABDOMEN: Soft, nontender, and nondistended. There is no rebound, voluntary guarding, or rigidity. : Deferred. No Wisdom. EXTREMITIES: Non-edematous and not cyanotic. No clubbing. Good capillary refill. SKIN: No skin breakdown. Vital Signs (last 8hr) Date Time Temp Pulse Resp B/P (MAP) Pulse Ox O2 Delivery O2 Flow Rate FiO2 02/07/25 08:00 97.5 63 20 149/69 99 Room Air 02/07/25 06:25 77 18 N/A Room Air 21 02/07/25 06:25 77 18 02/07/25 04:04 97.9 91 18 115/75 92 Room Air LABS: Laboratory: Test 02/07/25 05:20 02/06/25 12:03 02/06/25 04:12 02/05/25 17:07 Range/Units White Blood Count 6.1 4.8-10.8 K/uL Red Blood Count 4.89 4.50-6.20 MIL/uL Hemoglobin 13.8 L 14.0-18.0 g/dL Hematocrit 41.1 L 42-54 % Mean Corpuscular Volume 84.0 79-99 fL Mean Corpuscular Hemoglobin 28.2 27.0-33.0 pg Mean Corpuscular Hemoglobin Concent 33.6 32.0-36.0 g/dL Red Cell Distribution Width 15.2 11.0-15.5 % Platelet Count 210 130-400 K/uL Mean Platelet Volume 9.7 7.5-10.5 fL Nucleated Red Blood Cells 0.0 0.0-0.19 % Sodium Level 137 136-145 mmol/L Potassium Level 3.6 3.5-5.1 mmol/L Chloride Level 102 101-111 mmol/L Carbon Dioxide Level 30 21-32 mmol/L Blood Urea Nitrogen 13 7-18 mg/dL Creatinine 0.7 0.5-1.3 mg/dL Glomerular Filtration Rate Calc 100 >90 mL/min Random Glucose 82 70-105 mg/dL Total Calcium 8.9 8.5-10.1 mg/dL Magnesium Level 1.90 1.80-2.40 mg/dL Total Bilirubin 0.9 0.2-1.0 mg/dL Aspartate Amino Transf (AST/SGOT) 17 10-37 U/L Alanine Aminotransferase (ALT/SGPT) 22 12-78 U/L Alkaline Phosphatase 174 H 50-136 U/L Total Protein 6.3 6.0-8.3 g/dL Albumin 3.1 L 3.5-5.0 g/dL Activated Partial Thromboplast Time 75.4 #H 26.3-35.5 SEC Immature Granulocyte % (Auto) 0.3 0-1 % Neutrophils (%) (Auto) 55.8 40.0-77.0 % Lymphocytes (%) (Auto) 29.9 21.0-51.0 % Monocytes (%) (Auto) 9.1 3.0-13.0 % Eosinophils (%) (Auto) 4.3 0.0-8.0 % Basophils (%) (Auto) 0.6 0.0-5.0 % Neutrophils # (Auto) 3.9 1.8-7.7 K/uL Lymphocytes # (Auto) 2.1 1.0-4.8 K/uL Monocytes # (Auto) 0.6 0.1-1.0 K/uL Eosinophils # (Auto) 0.30 0.00-0.70 K/uL Basophils # (Auto) 0.04 0.00-0.20 K/uL Absolute Immature Granulocyte (auto 0.02 0-1 K/uL Total Creatine Kinase 53 21-232 U/L Troponin I High Sensitivity 268.6 *H 4-75 ng/L Current Medications Medications (Trade) Dose Ordered Sig/Kamila Route PRN Reason Start Time Stop Time Status Last Admin Dose Admin Acetaminophen (TYLenol 325MG TAB) 650 mg Q6H PRN PO MILD PAIN (1-3) 02/05/25 09:30 03/07/25 09:29 Aspirin (Aspirin 81mg Ec Tab) 81 mg DAILY PO 02/06/25 09:00 03/08/25 08:59 02/07/25 09:19 81 MG Atorvastatin Calcium (LIPItor 40MG) 40 mg HS PO 02/05/25 21:00 03/07/25 20:59 02/06/25 20:35 40 MG Budesonide (Pulmicort 0.5 Mg/2ml) 0.5 mg BIDRESP IH 02/05/25 09:30 02/05/25 10:39 DC Budesonide (Pulmicort 0.5 Mg/2ml) 0.5 mg BIDRESP IH 02/05/25 12:00 03/07/25 11:59 02/07/25 06:24 0.5 MG Citalopram Hydrobromide (CeleXA 20MG TAB) 20 mg DAILY PO 02/06/25 09:00 03/08/25 08:59 02/07/25 09:19 20 MG Gabapentin (NEURontin 100 mg CAP) 200 mg TID PO 02/05/25 14:00 03/07/25 13:59 02/07/25 09:18 200 MG Gabapentin (NEURontin 300 MG CAP) 600 mg TID PO 02/05/25 14:00 03/07/25 13:59 02/07/25 09:18 600 MG Heparin Sodium (Porcine) (HEParin 5,000 UNIT VIAL) *calculation based on ACTUAL B... AD PRN IV HEPARIN PROTOCOL 02/05/25 14:00 02/06/25 14:38 DC Heparin Sodium/ Dextrose 250 ml @ 0 mls/hr Q6H IV 02/05/25 14:00 02/06/25 14:38 DC 02/05/25 16:51 15.22 MLS/HR Ipratropium Orr (AtrovENT UD) 0.5 MG [id number] IH 02/05/25 12:00 03/07/25 11:59 02/07/25 06:25 0.5 MG Isosorbide Mononitrate (Imdur 30mg Sr) 30 mg DAILY PO 02/05/25 11:00 03/07/25 10:59 02/07/25 09:19 30 MG Lidocaine (Lidocaine Patch 4%) 1 each DAILY TP 02/07/25 09:30 03/09/25 09:29 Metoprolol Succinate (TopROL XL) 50 mg Q12H PO 02/05/25 09:30 03/07/25 09:29 02/07/25 09:19 50 MG Miscellaneous Medication (Gabapentin ) 800 mg TID PO 02/05/25 14:00 02/05/25 11:47 DC Nicotine (Nicoderm) 7 mg DAILY TD 02/06/25 09:00 03/08/25 08:59 Nitroglycerin (Nitrostat) 0.4 mg AD PRN SL CHEST PAIN 02/05/25 09:30 03/07/25 09:29 Ondansetron HCl (zoFRAN 4MG INJ) 4 mg Q6H PRN IVP NAUSEA/VOMITING 02/05/25 09:30 03/07/25 09:29 Pantoprazole Sodium (PROTonix 40MG INJ) 40 mg Q24H IVP 02/05/25 09:30 03/07/25 09:29 02/07/25 09:17 40 MG Potassium Chloride 100 ml @ 100 mls/hr AD PRN IV POTASSIUM PROTOCOL 02/05/25 09:30 03/07/25 09:29 Potassium Chloride (K-Dur/Klor-Con 20meq) 20 meq AD PRN PO POTASSIUM PROTOCOL 02/05/25 09:30 03/07/25 09:29 02/07/25 06:09 20 MEQ Potassium Chloride (KCl 10% Elixir 20meq/15ml) 20 meq AD PRN PO POTASSIUM PROTOCOL 02/05/25 09:30 03/07/25 09:29 Tramadol HCl (UltRAM) 50 mg QID PRN PO SEVERE PAIN (7-10) 02/05/25 12:00 02/07/25 09:35 DC 02/07/25 09:19 50 MG Tramadol HCl (UltRAM) 50 mg TID PO 02/07/25 14:00 02/17/25 09:00 DIAGNOSTICS / RADIOLOGY: [ ] ASSESSMENT: NSTEMI/ACS, POA History of prior PR x7, POA History of coronary artery disease with history of prior multiple PCIs, POA Active tobacco use disorder with long-term history of smoking, POA History of chronic COPD with chronic bronchitis, POA Hypertension, POA Hyperlipidemia, POA History of BPH, POA History of chronic atrial fibrillation maintained on anticoagulation with Xarelto, POA PVCs, POA PLAN: the patient has been seen and examined earlier this morning during my rounding, case discussed with the RN, no major acute events overnight, patient complaining of back pain, requesting tramadol. He underwent left heart catheterization 02/06/2025, with findings of multivessel coronary artery disease for which Cardiothoracic surgeon has been consulted. Pending input and recommendations. at bedside, updated. NEURO: Minimize central acting medications as possible. Fall Precautions. Well lighted room through the day and minimize interruptions through the night to prevent acute delirium. PULMONARY: Supplemental 02 as needed BiPAP as necessary, for respiratory distress Titrate Fio2 to keep Spo2 > or = 90% DuoNebs and CPT as needed IS hourly while awake for pulmonary hygiene prn Out of bed to chair as tolerated Maintain aspiration precautions at all times CARDIOVASCULAR: Follow hemodynamics. Vital signs per facility protocol GI & NUTRITION: Continue nutritional support Aspirations precautions Prokinetic agents and laxatives as needed KIDNEYS & ELECTROLYTES: Strict monitoring of intake and output Daily weights Avoid nephrotoxic agents Monitor electrolytes and replace as needed Goal urine output of 30mL/hr or 0.5mL/kg/hr Medications to be dosed according to renal function. Avoid contrast if possible ENDOCRINE: Maintain blood glucose between 100-180 at all times. Insulin sliding scale for blood glucose management Hypoglycemia and hyperglycemia protocol in place INFECTIOUS DISEASE: Trend temperature, WBC and procalcitonin level Follow cultures, deescalate antibiotics as soon as possible. Panculture if new onset fever HEMATOLOGY & COAGULATION: Monitor H&H. Keep Hgb > 7 Transfuse 1 unit of PRBC for Hgb < 7 Transfuse 1 pack of platelets of platelets < 20, 000 Watch for any signs and symptoms of bleeding SKIN: Pressure ulcer prevention per facility protocol Specialty mattress as needed ORTHO/REHAB Continue PT/OT PRN: MEDICATIONS Tylenol 650 mg po every 4 hrs for fever zofran 4 mg IV every 6 hrs for n/v Hydralazine 5 mg IV every 4 hrs systolic pressure > 160 bowel regiment: lactulose 20 gm PO BID PRN constipation Supportive measures: Continue GI and DVT prophylaxis Disposition: Left heart catheterization today. All questions answered time spent: > 35 min SUSU VASQUEZ MD Feb 07, 2025 10:20
[2025-02-07] MEDS: LIDOCAINE 4% ADH..PATCH TP SCH (11:22)
[2025-02-07 12:27] LABS: ABG BASE EXCESS 0.0 mmol/L (-2.0-3.0); ABG HCO3 23.2 mmol/L (21.0-28.0); ABG OXYGEN SATURATION 95.8 % (94.0-98.0); ABG PCO2 34 mmHg (35-48); ABG PH 7.456 (7.350-7.450); CARBON MONOXIDE 0.8 % (0.5-1.5); DEVICE COMMENT RR MARTA; PO2, ARTERIAL BG 78.1 mmHg (83.0-108.0); TEMPERATURE, CELSIUS BG 37.0 CELSIUS (35.5-37.0); VENT MODE, BG RA (ROOM AIR)
[2025-02-08] VITALS (8 sets, daily range): BP systolic 105–112; BP diastolic 58–83; PULSE 74–88; RESP 18–20; TEMP 97.4–97.8; O2SAT 96–99
--- NOTE | 2025-02-08 07:36 | HMCIMG ---
EXAMINATION: DUPLEX ULTRASOUND EXAMINATION OF THE BILATERAL CAROTID AND VERTEBRAL ARTERIES. CLINICAL HISTORY: Pre-operative evaluation for CABG. COMPARISON: None provided. TECHNIQUE: Real-time ultrasound scan of the bilateral carotid and vertebral arteries, 2-D grayscale, with color Doppler flow and spectral waveform analysis. FINDINGS: Color and spectral Doppler interrogation of the carotid vessels on the right demonstrate peak systolic velocities as follows: CCA (Proximal and distal): 47 and 40 cm/s respectively. ECA: 87 cm/s. ICA (Proximal, mid, and distal): 65, 48, and 59 cm/s respectively. Vertebral artery demonstrates antegrade flow: 40 cm/s. Right ICA/CCA ratio: 1.4 Peak systolic velocities on the left are as follows: CCA (Proximal and distal): 63 and 69 cm/s respectively. ECA: 95 cm/s. ICA (Proximal, mid, and distal): 58, 61, and 48 cm/s respectively. Vertebral artery demonstrates antegrade flow: 58 cm/s. Left ICA/CCA ratio: 0.9 Both the common carotid arteries and their branches reveal mild intimal thickening. There are calcified plaques in the bilateral carotid bulb and left common carotid artery without significant stenosis. IMPRESSION: Mild intimal thickening in the bilateral carotid arteries and their branches. Calcified plaques in the bilateral carotid bulb and left common carotid artery without significant stenosis. There is no significant flow limiting lesions in the remainder of the arteries. /[place]
--- NOTE | 2025-02-08 09:40 | DS ---
REFERRING PHYSICIAN: Austin Garcia MD CONSULTING PHYSICIAN: Ashish Macedo MD REASON FOR CONSULTATION: Coronary artery disease, surgical consultation for revascularization. HISTORY: This is a gentleman, 69 years of age. He has got multiple stents and has a history of coronary artery disease with risk factors including smoking and dyslipidemia as well as hypertension. The patient presented with a non-Q myocardial infarction and underwent a cardiac catheterization that demonstrated 3-vessel coronary artery disease with ingrowth stenosis of the stents. I have had the opportunity to review the films, the medical record, and examine the patient. I have also discussed the case with Dr. Austin Garcia. We both agree the surgical intervention should be part of the plan of care and we have recommended it. I have had the opportunity as well to discuss with the patient and why the indications of the procedure as well as the potential complications of it including, but not limited to postoperative bleeding, infection, stroke, and/or . The patient understands as well that there is associated morbidity and mortality to the procedure as it relates to the patient's own comorbidities and wishes to proceed with surgery. The patient, at this time, he would like for surgery to be electively scheduled since he was taking Eliquis and Pradaxa and we would like to wait until the effects of those medications reverse themselves. The patient is asking me if he could be discharged and I told him that would not be my call, but I would be happy to schedule him as an outpatient if he is stable. Otherwise, we will wait until a couple of more days, 2 to 3 days until the effects of the anticoagulant are self-reversible and then we will proceed with surgical revascularization. TID: [id number] RECEIPT: [id number]
--- NOTE | 2025-02-08 10:52 | PN ---
[facility] PROGRESS NOTE Date of Service: Feb 08, 2025 Time of Service: 10:50 SUBJECTIVE: 02/06 patient is seen and examined at bedside, case discussed with the RN, no acute events overnight, the patient remains admitted to the PCU, alert oriented x3 at the time of my visit, hemodynamically stable, he remains on heparin drip, he is currently NPO, awaiting left heart catheterization by Cardiovascular physician. He denies dizziness, no headache, no chest pain, shortness shortness for breath, no nausea, no vomiting, no abdominal pain. at bedside, updated. Continue to follow Cardiology input and recommendation. Echocardiogram to evaluate ejection fraction, report pending. 02/07 the patient has been seen and examined earlier this morning during my rounding, case discussed with the RN, no major acute events overnight, patient complaining of back pain, requesting tramadol. He underwent left heart catheterization 02/06/2025, with findings of multivessel coronary artery disease for which Cardiothoracic surgeon has been consulted. Pending input and recommendations. at bedside, updated. 02/08 the patient has been seen and examined earlier this morning during my rounding, case discussed with the RN, no major acute events overnight, denies chest pain, shortness shortness for breath, no nausea, no vomiting. Patient evaluated by Cardiothoracic surgeon, patient was taking Eliquis prior to p resented to the hospital. Awaiting events of anticoagulation to reverse prior to proceed with surgical revascularization. REVIEW OF SYSTEMS CONSTITUTIONAL: Denies fevers, chills, or night sweats. No unintentional weight loss reported. NEUROLOGICAL: Denies headache, amaurosis fugax, motor weakness, sensory deficit , vertigo/spinning sensation, gait abnormalities, or tremors. ENT: No hearing loss, otalgia, otorrhea, rhinitis, rhinorrhea, hoarseness, or sore throat. CARDIOVASCULAR: Left arm pain, left neck pressure, reports having previous history of [place], history of chronic atrial fibrillation PULMONARY: Denies any shortness of breath, cough, phlegm/sputum, hemoptysis, pleuritic chest pain. SLEEP: Denies morning headaches, daytime somnolence or napping. Denies difficulty falling asleep, staying asleep, waking from sleep. Denies knowledge of snoring. GASTROINTESTINAL: Denies any type of dysphagia to either liquids or solids. Denies nausea, vomiting, pyrosis, early satiety, abdominal pain, diarrhea, constipation, or changes in stool consistency or caliber. Denies coffee-ground emesis, hematemesis, hematochezia, or melanotic stools. GENITOURINARY: Denies frequency, urgency, nocturia, hematuria or incontinence (Storage/Irritative symptoms.) Low urinary stream, straining to void, urinary intermittency or hesitancy, splitting of the voiding stream, terminal dribbling. ENDOCRINOLOGIC: Denies polyuria, polydipsia, polyphagia or heat/cold intolerances. HEMATOLOGIC: Denies thrombophilia/previous clots, or coagulopathy/bleeding disorders. ONCOLOGIC: Denies personal history of malignancy. DERMATOLOGIC: Denies rashes or pruritus. PSYCHIATRIC: Denies any suicidal or homicidal ideation. Denies hallucinations. PHYSICAL EXAM GENERAL APPEARANCE: The patient is awake, alert, and oriented, in no acute cardiopulmonary distress. NEUROLOGICAL: Cranial nerves II-XII grossly intact. Motor is 5/5 in bilateral upper and lower extremities proximal to distal. No sensory deficits. HEENT: Face is symmetric. Pupils are equal and reactive. Extraocular movements are intact. NECK: Supple. No JVD. No thyromegaly. No submental, submandibular, pre- /postauricular, occipital or supraclavicular lymphadenopathy. CHEST: Normal chest expansion. No Telemetry. LUNGS: Absence of any rales, rhonchi or any wheezing. CARDIOVASCULAR: Irregularly irregular. S1 and S2 normal. No appreciable rubs, murmurs or gallops. ABDOMEN: Soft, nontender, and nondistended. There is no rebound, voluntary guarding, or rigidity. : Deferred. No Wisdom. EXTREMITIES: Non-edematous and not cyanotic. No clubbing. Good capillary refill. SKIN: No skin breakdown. Vital Signs (last 8hr) Date Time Temp Pulse Resp B/P (MAP) Pulse Ox O2 Delivery O2 Flow Rate FiO2 02/08/25 07:26 97.9 74 18 107/63 96 Room Air 02/08/25 06:48 88 20 02/08/25 06:47 88 20 N/A Room Air 21 02/08/25 03:41 97.5 82 18 112/83 95 Room Air LABS: Laboratory: Test 02/07/25 12:26 02/07/25 05:20 02/06/25 12:03 Range/Units Blood Gas Specimen Type Arterial Arterial Blood pH 7.456 H 7.350-7.450 Arterial Blood Partial Pressure CO2 34 L 35-48 mmHg Arterial Blood Partial Pressure O2 78.1 L 83.0-108.0 mmHg Arterial Blood HCO3 23.2 21.0-28.0 mmol/L Arterial Blood Oxygen Saturation 95.8 94.0-98.0 % Arterial Blood Base Excess 0.0 -2.0-3.0 mmol/L Hemoglobin (Blood Gas) 15.1 13.5-17.5 g/dL Sodium (Blood Gas) 138 136-145 MMOL/L Bedside Potassium (Blood Gas) 4.4 3.4-4.5 MMOL/L Bedside Chloride (Blood Gas) 104 98-107 MMOL/L Bedside Glucose (Blood Gas) 91 65-95 MG/DL Bedside Ionized Calcium (Blood Gas) 1.18 1.15-1.33 MMOL/L Bedside Lactic Acid (Blood Gas) 1.11 H 0.36-0.75 MMOL/L Blood Gas Temperature 37.0 35.5-37.0 CELSIUS Blood Gas Vent Mode RA ROOM AIR FiO2 21.0 % Blood Gas Specimen Comment RR SANTOSH White Blood Count 6.1 4.8-10.8 K/uL Red Blood Count 4.89 4.50-6.20 MIL/uL Hemoglobin 13.8 L 14.0-18.0 g/dL Hematocrit 41.1 L 42-54 % Mean Corpuscular Volume 84.0 79-99 fL Mean Corpuscular Hemoglobin 28.2 27.0-33.0 pg Mean Corpuscular Hemoglobin Concent 33.6 32.0-36.0 g/dL Red Cell Distribution Width 15.2 11.0-15.5 % Platelet Count 210 130-400 K/uL Mean Platelet Volume 9.7 7.5-10.5 fL Nucleated Red Blood Cells 0.0 0.0-0.19 % Sodium Level 137 136-145 mmol/L Potassium Level 3.6 3.5-5.1 mmol/L Chloride Level 102 101-111 mmol/L Carbon Dioxide Level 30 21-32 mmol/L Blood Urea Nitrogen 13 7-18 mg/dL Creatinine 0.7 0.5-1.3 mg/dL Glomerular Filtration Rate Calc 100 >90 mL/min Random Glucose 82 70-105 mg/dL Total Calcium 8.9 8.5-10.1 mg/dL Magnesium Level 1.90 1.80-2.40 mg/dL Total Bilirubin 0.9 0.2-1.0 mg/dL Aspartate Amino Transf (AST/SGOT) 17 10-37 U/L Alanine Aminotransferase (ALT/SGPT) 22 12-78 U/L Alkaline Phosphatase 174 H 50-136 U/L Total Protein 6.3 6.0-8.3 g/dL Albumin 3.1 L 3.5-5.0 g/dL Activated Partial Thromboplast Time 75.4 #H 26.3-35.5 SEC Current Medications Medications (Trade) Dose Ordered Sig/Kamila Route PRN Reason Start Time Stop Time Status Last Admin Dose Admin Acetaminophen (TYLenol 325MG TAB) 650 mg Q6H PRN PO MILD PAIN (1-3) 02/05/25 09:30 03/07/25 09:29 Aspirin (Aspirin 81mg Ec Tab) 81 mg DAILY PO 02/06/25 09:00 03/08/25 08:59 02/08/25 08:31 81 MG Atorvastatin Calcium (LIPItor 40MG) 40 mg HS PO 02/05/25 21:00 03/07/25 20:59 02/07/25 21:32 40 MG Budesonide (Pulmicort 0.5 Mg/2ml) 0.5 mg BIDRESP IH 02/05/25 09:30 02/05/25 10:39 DC Budesonide (Pulmicort 0.5 Mg/2ml) 0.5 mg BIDRESP IH 02/05/25 12:00 03/07/25 11:59 02/08/25 06:48 0.5 MG Citalopram Hydrobromide (CeleXA 20MG TAB) 20 mg DAILY PO 02/06/25 09:00 03/08/25 08:59 02/08/25 08:31 20 MG Gabapentin (NEURontin 100 mg CAP) 200 mg TID PO 02/05/25 14:00 03/07/25 13:59 02/08/25 08:28 200 MG Gabapentin (NEURontin 300 MG CAP) 600 mg TID PO 02/05/25 14:00 03/07/25 13:59 02/08/25 08:29 600 MG Heparin Sodium (Porcine) (HEParin 5,000 UNIT VIAL) *calculation based on ACTUAL B... AD PRN IV HEPARIN PROTOCOL 02/05/25 14:00 02/06/25 14:38 DC Heparin Sodium/ Dextrose 250 ml @ 0 mls/hr Q6H IV 02/05/25 14:00 02/06/25 14:38 DC 02/05/25 16:51 15.22 MLS/HR Ipratropium [place] (AtrovENT UD) 0.5 MG [id number] IH 02/05/25 12:00 03/07/25 11:59 02/08/25 06:48 0.5 MG Isosorbide Mononitrate (Imdur 30mg Sr) 30 mg DAILY PO 02/05/25 11:00 03/07/25 10:59 02/08/25 08:28 30 MG Lidocaine (Lidocaine Patch 4%) 1 each DAILY TP 02/07/25 09:30 03/09/25 09:29 02/08/25 08:30 1 EACH Metoprolol Succinate (TopROL XL) 50 mg Q12H PO 02/05/25 09:30 03/07/25 09:29 02/08/25 08:29 50 MG Miscellaneous Medication (Gabapentin ) 800 mg TID PO 02/05/25 14:00 02/05/25 11:47 DC Nicotine (Nicoderm) 7 mg DAILY TD 02/06/25 09:00 03/08/25 08:59 Nitroglycerin (Nitrostat) 0.4 mg AD PRN SL CHEST PAIN 02/05/25 09:30 03/07/25 09:29 Ondansetron HCl (zoFRAN 4MG INJ) 4 mg Q6H PRN IVP NAUSEA/VOMITING 02/05/25 09:30 03/07/25 09:29 Pantoprazole Sodium (PROTonix 40MG INJ) 40 mg Q24H IVP 02/05/25 09:30 03/07/25 09:29 02/08/25 08:31 40 MG Potassium Chloride 100 ml @ 100 mls/hr AD PRN IV POTASSIUM PROTOCOL 02/05/25 09:30 03/07/25 09:29 Potassium Chloride (K-Dur/Klor-Con 20meq) 20 meq AD PRN PO POTASSIUM PROTOCOL 02/05/25 09:30 03/07/25 09:29 02/07/25 06:09 20 MEQ Potassium Chloride (KCl 10% Elixir 20meq/15ml) 20 meq AD PRN PO POTASSIUM PROTOCOL 02/05/25 09:30 03/07/25 09:29 Tramadol HCl (UltRAM) 50 mg QID PRN PO SEVERE PAIN (7-10) 02/05/25 12:00 02/07/25 09:35 DC 02/07/25 09:19 50 MG Tramadol HCl (UltRAM) 50 mg TID PO 02/07/25 14:00 02/17/25 09:00 02/08/25 08:29 50 MG DIAGNOSTICS / RADIOLOGY: [ ] ASSESSMENT: NSTEMI/ACS, POA History of prior [place] x7, POA History of coronary artery disease with history of prior multiple PCIs, POA Active tobacco use disorder with long-term history of smoking, POA History of chronic COPD with chronic bronchitis, POA Hypertension, POA Hyperlipidemia, POA History of BPH, POA History of chronic atrial fibrillation maintained on anticoagulation with Xarelto, POA PVCs, POA PLAN: the patient has been seen and examined earlier this morning during my rounding, case discussed with the RN, no major acute events overnight, denies chest pain, shortness shortness for breath, no nausea, no vomiting. Patient evaluated by Cardiothoracic surgeon, patient was taking Eliquis prior to presented to the hospital. Awaiting events of anticoagulation to reverse prior to proceed with surgical revascularization. NEURO: Minimize central acting medications as possible. Fall Precautions. Well lighted room through the day and minimize interruptions through the night to prevent acute delirium. PULMONARY: Supplemental 02 as needed BiPAP as necessary, for respiratory distress Titrate Fio2 to keep Spo2 > or = 90% DuoNebs and CPT as needed IS hourly while awake for pulmonary hygiene prn Out of bed to chair as tolerated Maintain aspiration precautions at all times CARDIOVASCULAR: Follow hemodynamics. Vital signs per facility protocol GI & NUTRITION: Continue nutritional support Aspirations precautions Prokinetic agents and laxatives as needed KIDNEYS & ELECTROLYTES: Strict monitoring of intake and output Daily weights Avoid nephrotoxic agents Monitor electrolytes and replace as needed Goal urine output of 30mL/hr or 0.5mL/kg/hr Medications to be dosed according to renal function. Avoid contrast if possible ENDOCRINE: Maintain blood glucose between 100-180 at all times. Insulin sliding scale for blood glucose management Hypoglycemia and hyperglycemia protocol in place INFECTIOUS DISEASE: Trend temperature, WBC and procalcitonin level Follow cultures, deescalate antibiotics as soon as possible. Panculture if new onset fever HEMATOLOGY & COAGULATION: Monitor H&H. Keep Hgb > 7 Transfuse 1 unit of PRBC for Hgb < 7 Transfuse 1 pack of platelets of platelets < 20, 000 Watch for any signs and symptoms of bleeding SKIN: Pressure ulcer prevention per facility protocol Specialty mattress as needed ORTHO/REHAB Continue PT/OT PRN: MEDICATIONS Tylenol 650 mg po every 4 hrs for fever zofran 4 mg IV every 6 hrs for n/v Hydralazine 5 mg IV every 4 hrs systolic pressure > 160 bowel regiment: lactulose 20 gm PO BID PRN constipation Supportive measures: Continue GI and DVT prophylaxis Disposition: Left heart catheterization today. All questions answered time spent: > 35 min SUSU VASQUEZ MD Feb 08, 2025 10:52
[2025-02-08] MEDS ORDERED: ASPI-1005 PO (15:03)
[2025-02-08] MEDS ORDERED: METHYLPREDNISOLONE PO SCH (16:00)
[2025-02-08] MEDS ORDERED: FAMOTIDINE 20MG TAB PO SCH (21:00)
[2025-02-08] MEDS ORDERED: BUDESONIDE 0.5 MG/2 ML INH IH SCH (21:00)
[2025-02-09] MEDS ORDERED: ISOSORBIDE MONO 30MG SR TAB PO SCH (09:00)
[2025-02-09] MEDS ORDERED: ASPIRIN 81 MG EC TAB PO SCH (09:00)
[2025-02-09] MEDS ORDERED: RIVAROXABAN 20 MG TABLET PO SCH (13:00)
--- NOTE | 2025-02-10 09:58 | DS ---
Discharge Summary Hospital Course Summary: Date of service 02/08/2025 The patient initially admitted to the hospital on February 05, 2025 with the following history of the present illness: This is a 69-year-old male history of COPD/chronic bronchitis, history of chronic atrial fibrillation maintained on chronic anticoagulation with Xarelto, history of [place] x7, history of coronary artery disease with prior history of multiple PCIs, BPH, active tobacco use who presented to the ER for further evaluation of pain and pressure involving the left arm along with tightness around the left side of the neck and some chest pressure that woke him up at night from sleep. Patient reports having prior history of [place] with symptoms similar to current presentation. In addition to the left arm pain, he felt like he needed to have a bowel movement. Patient is followed by Dr. Dorsey with Cardiology as outpatient. His last coronary stent was in 2019 were per , three stents were placed. He has had prior history of multiple MIs previously. [place] [facility] [place]ation [place] late [place],. Patient denies any significant wheezing. Cough is at baseline. Patient denies any fevers or chills otherwise. Denies significant shortness of breath and states that his COPD is not flaring up. Patient reports having history of atrial fibrillation and is maintained on Xarelto 20 mg which he takes with at lunchtime. His last dose of Xarelto was at 2:00 p.m. yesterday. Patient denies being on any antiplatelet therapy otherwise. Presentation, patient was noted to be afebrile with T-max of 98.1 F, heart rate of 80, blood pressure of 126/83. EKG showed findings of atrial fibrillation with PVC. Labs on presentation showed WBC count of 5700, hemoglobin of 14.3, platelet count of 361306. BMP showed sodium of 137, potassium 3.7, chloride of 102, CO2 of 28, BUN of 13 , creatinine of 0.9, blood glucose of 130, initial cardiac troponin was noted to be at 20 and the 2nd set troponin was noted to be elevated at 96. Chest x-ray showed no acute infiltrates Patient will be admitted for further evaluation of ACS/NSTEMI. Consultation with Dr. Garcia with Cardiology will be requested. We will see how patient progresses in the next 48-72 hours, we will await cardiac evaluation and see if patient needs coronary angiography this admission. Hospital course 02/06 patient is seen and examined at bedside, case discussed with the RN, no acute events overnight, the patient remains admitted to the PCU, alert oriented x3 at the time of my visit, hemodynamically stable, he remains on heparin drip, he is currently NPO, awaiting left heart catheterization by Cardiovascular physician. He denies dizziness, no headache, no chest pain, shortness shortness for breath, no nausea, no vomiting, no abdominal pain. at bedside, updated. Continue to follow Cardiology input and recommendation. Echocardiogram to evaluate ejection fraction, report pending. 02/07 the patient has been seen and examined earlier this morning during my rounding, case discussed with the RN, no major acute events overnight, patient complaining of back pain, requesting tramadol. He underwent left heart catheterization 02/06/2025, with findings of multivessel coronary artery disease for which Cardiothoracic surgeon has been consulted. Pending input and recommendations. at bedside, updated. 02/08 patient was seen and examined during rounding, no acute events overnight, hemodynamically stable. Patient evaluated by Cardiothoracic surgeon. Patient has been on oral anticoagulation at home. Per Cardiothoracic surgeon, need to wait several more days in order to proceed with the cardiac intervention. The patient prefers to go home rather than staying in the hospital. Patient was discharged home and instructed to continue oral anticoagulation, once he decides that he would like to proceed with the intervention, he needs to stop the anticoagulation five days prior to his outpatient appointment with the Cardiotho dion surgeon Dr. Macedo. Today 02/10/[address] Macedo assistance Ms Stahl who will be contacting the patient to make all the necessary arrangements. Fashion Illustrator(s): Cardiothoracic surgeon Procedure(s): PREOPERATIVE DIAGNOSIS: unstable angina. PROCEDURES PERFORMED: * Left heart cardiac catheterization. * Left and right coronary artery angiogram. * LV angiography. * Right . * Sedation. * Vascular closure device, right common femoral artery. LIVESTOCK TRADER: Austin Garcia MD DETAILS OF THE PROCEDURE: After informed consent was obtained, the patient was brought to the cardiac catheterization laboratory. Bilateral groins were prepped and draped in sterile fashion. ECG monitoring was established and maintained throughout the procedure. After obtaining adequate local anesthesia in the right groin, a 6-Moz[place] sheath was inserted into the right common femoral artery using modified Seldinger technique without any problems. Following this, a JL4, then a JL4.5, and then a JR4 diagnostic catheters were all used to obtain cines of the left and right coronary artery and a pigtail catheter was used to do LV angiography in the standard FROST view. FINDINGS: * The right coronary artery has a long segment stent. It is 100% occluded starting at the ostium. There are left to right collaterals seen. * Left main is okay. * LAD is okay. * Diagonal branch is long and big and has an 80% to 90% stenosis in the end. * Circumflex artery is codominant. In the body of the circumflex, there is a stent with 80% to 90% diffuse in-stent restenosis. There are collaterals from this branch to the right coronary artery. * LV angiography reveals normal ejection fraction. EDP is 18. * There is an endoluminal aortic graft seen. * Right below extremity was not visualized. FINAL IMPRESSION: * Normal ejection fraction. * Diagonal, obtuse marginal, circumflex, and RCA disease. RECOMMENDATION: To get evaluated by CT Surgery for a possible CT surgery. Further recommendations based on how the patient does. Assessment/Plan: Final diagnosis NSTEMI/ACS, POA History of prior [place] x7, POA History of coronary artery disease with history of prior multiple PCIs, POA Active tobacco use disorder with long-term history of smoking, POA History of chronic COPD with chronic bronchitis, POA Hypertension, POA Hyperlipidemia, POA History of BPH, POA History of chronic atrial fibrillation maintained on anticoagulation with Xarelto, POA PVCs, POA Discharge Instructions: Patient to follow up with Cardiothoracic surgeon Dr. Macedo as an outpatient. Home Medications: Active Scripts Methylprednisolone (Medrol) 4 Mg Tab.ds.pk, 1 TAB PO AD for 6 Days, #21 TAB 0 Refills 6 on day 1 then reduce by one tablet daily until gone Prov:EVIE FONTENOT MD 01/15/25 Ipratropium [place] (Atrovent Neb Soln) 0.2 Mg/Ml (0.02 %) Soln, 0.5 MG IH [id number], #2 ML Prov:EVIE FONTENOT MD 01/15/25 Budesonide (Budesonide) 0.5 Mg/2 Ml Ampul.neb, 0.5 MG IH BID, #2 " 1 Refill Prov:EVIE FONTENOT MD 01/15/25 Reported Medications Aspirin (ASPIRIN 81MG CHEW TAB) 81 Mg Tab.chew, 81 MG PO DAILY, TAB.CHEW 02/08/25 Metoprolol Succinate (Metoprolol Succinate) 100 Mg Tab.er.24h, 1 TAB PO DAILY for 30 Days, #30 TAB 0 Refills 02/05/25 Gabapentin (Gabapentin) 400 Mg Capsule, 800 MG PO TID, CAP 08/18/22 Isosorbide Mononitrate (Isosorbide Mononitrate ER) 30 Mg Tab.er.24h, 30 MG PO DAILY, TAB 08/18/22 Famotidine (Famotidine) 20 Mg Tablet, 20 MG PO BID, TAB 08/18/22 Citalopram Hydrobromide (Citalopram HBr) 20 Mg Tablet, 20 MG PO DAILY, TAB 08/18/22 [Vitamin D3] No Conflict Check, 1000 UNITS PO DAILY 08/18/22 Tramadol Hcl (Tramadol HCl) 50 Mg Tablet, 50 MG PO QID PRN for PAIN, TAB 08/18/22 Atorvastatin Calcium (LIPITOR) 80 Mg Tablet, 80 MG PO HS, TAB 08/18/22 Rivaroxaban (Xarelto) 20 Mg Tablet, 20 MG PO PCLUNCH, TAB 08/18/22 Discontinued Reported Medications Metoprolol Succinate (Metoprolol Succinate) 50 Mg Tab.er.24h, 50 MG PO BID, TAB 08/18/22 Time spent arranging discharge: 31-60 minutes SUSU VASQUEZ MD Feb 10, 2025 09:58
== END 2025-02-08 16:49 | disposition home or self-care (01) | DRG 281 ==
LOC: EDH 04:20 → EDHIP 09:21 → 2AH 10:25
PROVIDERS: ADMIT Internal Medicine; ATTEND Internal Medicine
PROC: 4A023N7 Measurement of Cardiac Sampling and Pressure, Left Heart, Percutaneous Approach (ICD-10-PCS; principal; 2025-02-06)
PROC: B2111ZZ Fluoroscopy of Multiple Coronary Arteries using Low Osmolar Contrast (ICD-10-PCS; 2025-02-06)
PROC: B2151ZZ Fluoroscopy of Left Heart using Low Osmolar Contrast (ICD-10-PCS; 2025-02-06)
DX: T82.855A Stenosis of coronary artery stent, initial encounter (principal); I48.20 Chronic atrial fibrillation, unspecified; I21.4 Non-ST elevation (NSTEMI) myocardial infarction; I25.10 Atherosclerotic heart disease of native coronary artery without angina pectoris; F17.210 Nicotine dependence, cigarettes, uncomplicated; I10 Essential (primary) hypertension; I49.3 Ventricular premature depolarization; J44.89 Other specified chronic obstructive pulmonary disease; N40.0 Benign prostatic hyperplasia without lower urinary tract symptoms; E78.00 Pure hypercholesterolemia, unspecified; Y83.1 Surgical operation with implant of artificial internal device as the cause of abnormal reaction of the patient, or of later complication, without mention of misadventure at the time of the procedure; Z79.01 Long term (current) use of anticoagulants; Z95.5 Presence of coronary angioplasty implant and graft; I25.2 Old myocardial infarction; Z95.1 Presence of aortocoronary bypass graft
CPT/HCPCS: 36415; 36600; 71045; 80048; 80053; 80061; 80076; 81001; 82435; 82550; 82803; 82947; 83036; 83605; 83735; 84132; 84145; 84295; 84484; 85018; 85025; 85027; 85610; 85651; 85730; 86140; 93005; 93306; 93356; 93458; 93880; 94010; 94640; 94664; 99156; 99157; 99291; C1769; C1894; G0378; J1644; J2250; J2405; J2470; J3010; J3475; J3490; Q9967; C1760; Q9965

== ENCOUNTER 2025-03-22 09:44 | Observation (INO) | payer MEDICARE, OTHER ==
[~2025-03-22] VITALS: Ht 182.9 cm; Wt 81.6 kg
[~2025-03-22 09:44] MED LIST changes: +ASPI-1005 PO; -METO-391 PO; +METO-409 PO
--- NOTE | 2025-03-22 09:56 | ERN ---
General Chief Complaint: Dehydration Stated Complaint: DEHYDRATION Time Seen by MD: 09:48 Source: patient, family History of Present Illness Initial Comments Patient is a 69-year-old gentleman coming in to be evaluated for generalized body weakness and nauseousness at times. Per patient he had open heart surgery on March 06 and since then has been feeling weak but in the last couple of days has been getting worse. Allergies: Coded Allergies: morphine (Unverified Allergy, Unknown, 08/18/22) Home Meds Active Scripts Methylprednisolone (Medrol) 4 Mg Tab.ds.pk, 1 TAB PO AD for 6 Days, #21 TAB 0 Refills 6 on day 1 then reduce by one tablet daily until gone Prov:EVIE FONTENOT MD 01/15/25 Ipratropium [place] (Atrovent Neb Soln) 0.2 Mg/Ml (0.02 %) Soln, 0.5 MG IH D5ROALH, #2 ML Prov:EVIE FONTENOT MD 01/15/25 Budesonide (Budesonide) 0.5 Mg/2 Ml Ampul.neb, 0.5 MG IH BID, #2 " 1 Refill Prov:EVIE FONTENOT MD 01/15/25 Reported Medications Aspirin (ASPIRIN 81MG CHEW TAB) 81 Mg Tab.chew, 81 MG PO DAILY, TAB.CHEW 02/08/25 Metoprolol Succinate (Metoprolol Succinate) 100 Mg Tab.er.24h, 1 TAB PO DAILY for 30 Days, #30 TAB 0 Refills 02/05/25 Gabapentin (Gabapentin) 400 Mg Capsule, 800 MG PO TID, CAP 08/18/22 Isosorbide Mononitrate (Isosorbide Mononitrate ER) 30 Mg Tab.er.24h, 30 MG PO DAILY, TAB 08/18/22 Famotidine (Famotidine) 20 Mg Tablet, 20 MG PO BID, TAB 08/18/22 Citalopram Hydrobromide (Citalopram HBr) 20 Mg Tablet, 20 MG PO DAILY, TAB 08/18/22 [Vitamin D3] No Conflict Check, 1000 UNITS PO DAILY 08/18/22 Tramadol Hcl (Tramadol HCl) 50 Mg Tablet, 50 MG PO QID PRN for PAIN, TAB 08/18/22 Atorvastatin Calcium (LIPITOR) 80 Mg Tablet, 80 MG PO HS, TAB 08/18/22 Rivaroxaban (Xarelto) 20 Mg Tablet, 20 MG PO PCLUNCH, TAB 08/18/22 Past Medical History Past Medical History: A-Fib, CAD, COPD, High Cholesterol, Hypertension Past Surgical History: CABG, Other Surgical History Other: CABG 03/06/25 Family History Family History: Negative Social History Social History: Smokers ROS Dictation CONSTITUTIONAL: No chills, no fever, no weakness, no diaphoresis, no malaise. HEAD/FACE: No signs of trauma. EENT: No eye pain, no blurred vision, no tearing, no double vision, no ear pain, no ear discharge, no nose pain, no nasal congestion, no throat pain, no throat swelling, no mouth pain. RESPIRATORY: No cough, no orthopnea, no SOB, no stridor, no wheezing. CARDIOVASCULAR: No chest pain, no edema, no palpitations, no syncope. GASTROINTESTINAL/ABDOMINAL: No abdominal pain, no constipation, no diarrhea, no nausea, no vomiting. GENITOURINARY: No abnormal discharge, no dysuria, no frequent urination, no hematuria. No complaints of pain in the genitals. MUSCULOSKELETAL: No back pain, no gout, no joint pain, no joint swelling, no muscle pain, no muscle stiffness, no neck pain. INTEGUMENTARY: No change in color, no change in hair/nails, no dryness, no lesion, no lumps, no rash. NEUROLOGICAL/PSYCH: No anxiety, not depressed, no emotional problem, no headache, no numbness, no pre-existing deficit, no history of seizures, no tremors, no weakness. HEMATOLOGIC/LYMPHATIC: Not anemic, no history of blood clots, no apparent bleeding, no bruising, glands not swollen. All Systems Negative, Except as Noted. Physical Exam Physical Exam Dictation VITAL SIGNS: Reviewed. GENERAL APPEARANCE: Alert, oriented x3, no acute distress, obese. HEAD AND FACE: Non-traumatic. EYES: PERRL, pink conjunctivas, eyelid no trauma, anterior chamber clear. EARS: Pinnas intact and no signs of trauma or erythema. Ear canals clear and no discharge. TMs no erythema. NOSE: No discharge, no bleeding. OROPHARYNX: Mouth normal, teeth no caries, tongue pink. Pharynx clear, no erythema. Tonsils no exudates, no abscesses noted. Mucous membrane moist. NECK: Supple, non-tender, no thyromegaly, no masses, no JVD, no bruits. BREAST: Deferred. CHEST: No tenderness, no crepitus, no paradoxical movement, no retractions. LUNGS: Clear, well-ventilated, symmetric, no rales, no wheezing, no rhonchi, no stridor, good breath sounds bilaterally. HEART: Regular rate, regular rhythm, no murmur, no gallops. VASCULAR: No peripheral edema. ABDOMEN: Soft, positive bowel sounds, nondistended, no guarding, nontender, no rebound, no masses no hepatomegaly, no splenomegaly, no Farias's sign, no hernias. RECTAL: Deferred. GENITAL: Deferred. NEUROLOGICAL: Normal speech, gross motor function intact, gross sensory function intact. MUSCULOSKELETAL: Neck nontender, full range of motion, back nontender, full range of motion. EXTREMITIES: Nontender, full range of motion. SKIN: Color pink, dry, no turgor, no rash, no lacerations, no abrasions, no contusions. LYMPHATICS: Deferred. Results Laboratory and Microbiology Lab and Micro Result Laboratory Tests Test 03/22/25 10:04 03/22/25 13:30 White Blood Count 10.4 K/uL (4.8-10.8) Red Blood Count 4.79 MIL/uL (4.50-6.20) Hemoglobin 13.5 g/dL (14.0-18.0) L Hematocrit 41.7 % (42-54) L Mean Corpuscular Volume 87.1 fL (79-99) Mean Corpuscular Hemoglobin 28.2 pg (27.0-33.0) Mean Corpuscular Hemoglobin Concent 32.4 g/dL (32.0-36.0) Red Cell Distribution Width 15.5 % (11.0-15.5) Platelet Count 435 K/uL (130-400) H Mean Platelet Volume 9.6 fL (7.5-10.5) Immature Granulocyte % (Auto) 0.4 % (0-1) Neutrophils (%) (Auto) 69.6 % (40.0-77.0) Lymphocytes (%) (Auto) 17.7 % (21.0-51.0) L Monocytes (%) (Auto) 10.2 % (3.0-13.0) Eosinophils (%) (Auto) 1.2 % (0.0-8.0) Basophils (%) (Auto) 0.9 % (0.0-5.0) Neutrophils # (Auto) 7.3 K/uL (1.8-7.7) Lymphocytes # (Auto) 1.9 K/uL (1.0-4.8) Monocytes # (Auto) 1.1 K/uL (0.1-1.0) H Eosinophils # (Auto) 0.13 K/uL (0.00-0.70) Basophils # (Auto) 0.09 K/uL (0.00-0.20) Absolute Immature Granulocyte (auto 0.04 K/uL (0-1) Nucleated Red Blood Cells 0.0 % (0.0-0.19) Sodium Level 136 mmol/L (136-145) Potassium Level 4.1 mmol/L (3.5-5.1) Chloride Level 96 mmol/L (101-111) L Carbon Dioxide Level 33 mmol/L (21-32) H Blood Urea Nitrogen 19 mg/dL (7-18) H Creatinine 1.0 mg/dL (0.5-1.3) Glomerular Filtration Rate Calc 81 mL/min (>90) Random Glucose 122 mg/dL (70-105) H Total Calcium 9.6 mg/dL (8.5-10.1) Total Bilirubin 1.5 mg/dL (0.2-1.0) H Aspartate Amino Transf (AST/SGOT) 20 U/L (10-37) Alanine Aminotransferase (ALT/SGPT) 21 U/L (12-78) Alkaline Phosphatase 232 U/L (50-136) H Total Creatine Kinase 39 U/L (21-232) # Troponin I High Sensitivity 28 ng/L (4-75) Total Protein 7.3 g/dL (6.0-8.3) Albumin 3.3 g/dL (3.5-5.0) L Lipase 17 U/L (16-77) Urine Color YELLOW (YELLOW) Urine Appearance CLOUDY (CLEAR) H Urine pH 5.5 (5.0-8.0) Urine Specific [place] 1.027 (1.001-1.031) Urine Protein 10 mg/dL (NEGATIVE) H Urine Glucose (UA) NEGATIVE mg/dL (NEGATIVE) Urine Ketones NEGATIVE mg/dL (NEGATIVE) Urine Occult Blood NEGATIVE (NEGATIVE) Urine Nitrate NEGATIVE (NEGATIVE) Urine Bilirubin NEGATIVE mg/dL (NEGATIVE) Urine Urobilinogen >=8.0 mg/dL (0.2-1.0) H Urine Leukocyte Esterase NEGATIVE [place]/uL Urine RBC 0-1 /HPF (0-1) Urine WBC 0-1 /HPF (0-1) Urine Amorphous Crystals (Auto) RARE /LPF (None Seen) Urine Bacteria RARE /HPF (None Seen) Labs Reviewed?: Yes EKG/XRAY/US/CT/MRI EKG Comment 03/22/2025 time 10:43 a.m. Ventricular rate [address] wave elevation or depression MDM MDM: Differential diagnosis:dehydration, s/p cabg Rationale: Tests considered and ordered secondary to shared decision making include: Previous outside records reviewed: Old ER visits. Risk of complication and/or morbidity or mortality of patient management: None Medications-Per medication reconciliation Need for hospitalization: Patient does meet criteria for hospitalization. Need for emergency major/minor surgery: No There are no social concerns with this patient. Prescription drug management Prescriptions will include symptomatic care Patient's prior external medical records from other ER visits were reviewed by me as indicated. Prior testing and results from previous visits were reviewed. Prior tests were taken into account with medical decision making and resource utilization, independent historian/historians were used to obtain complete medical history. I independently interpreted the test that were performed, results were reviewed by me and considered findings on radiology if ordered. Medical management and examination interpretation discussions were had by me with other qualified healthcare professionals as indicated for the patient's care.patient will be admitted under the care of Hospitalist group for on going mgmt. ED Course Orders Procedure Category Date Status Time Cbc With Differential LAB 03/22/25 Complete 09:48 Comprehensive LAB 03/22/25 Complete Metabolic Panel 09:48 Troponin I High LAB 03/22/25 Complete Sensitivity 09:48 Urinalysis Profile LAB 03/22/25 Complete 09:48 Creatine Kinase, Total LAB 03/22/25 Complete 09:48 Lipase LAB 03/22/25 Complete 09:48 12 Lead Ekg Tracing- EKG 03/22/25 Complete Technical 10:42 0.9% Nacl 500ml PHA 03/22/25 Complete Iv.Soln (Ns 500ml 14:00 Current Medications Medications (Trade) Dose Ordered Sig/Kamila Route PRN Reason Start Time Stop Time Status Last Admin Dose Admin Sodium Chloride 500 ml @ 0 mls/hr ONCE ONCE IV 03/22/25 14:00 03/22/25 14:01 DC Vital Signs Date Time Temp Pulse Resp B/P (MAP) Pulse Ox O2 Delivery O2 Flow Rate FiO2 03/22/25 11:11 98.1 55 17 118/78 97 Room Air* 0 21 03/22/25 09:45 97.5 72 20 94/70 99 Room Air DX & DISP Disposition: Inpatient Decision to Admit Time: 14:14 Departure Impression: Primary Impression: Dehydration Condition: Stable Referrals: MIGUEL JACKSON MD (PCP) ANTONIO PERALES MD Mar 22, 2025 09:56
[2025-03-22 10:17] LABS: IMMATURE GRANULOCYTE ABSOLUTE 0.04 K/uL (0-1); NUCLEATED RED BLOOD CELLS 0.0 % (0.0-0.19); PLATELET COUNT (AUTO) 435 K/uL (130-400); RED BLOOD CELL COUNT(AUTO) 4.79 MIL/uL (4.50-6.20); RED CELL DISTRIBUTION WIDTH 15.5 % (11.0-15.5); WHITE BLOOD COUNT (AUTO) 10.4 K/uL (4.8-10.8)
[2025-03-22 10:33] LABS: CREATININE 1.0 mg/dL (0.5-1.3); GLOMERULAR FILTR. RATE CALC 81.0 mL/min (>90); GLUCOSE,RANDOM 122.0 mg/dL (70-105); SODIUM SERUM 136.0 mmol/L (136-145); UREA NITROGEN, BLOOD 19.0 mg/dL (7-18)
[2025-03-22 10:37] LABS: ASPARTATE AMINOTRANSFERASE 20.0 U/L (10-37); CREATINE KINASE, TOTAL 39.0 U/L (21-232); TOTAL PROTEIN, SERUM 7.3 g/dL (6.0-8.3)
--- NOTE | 2025-03-22 10:52 | EKG ---
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
[2025-03-22 13:48] LABS: APPEARANCE,URINE CLOUDY (CLEAR); GLUCOSE, URINE (UA) NEGATIVE (NEGATIVE); LEUKOCYTE ESTERASE ,URINE NEGATIVE Leu/uL (NEGATIVE); NITRATE,URINE NEGATIVE (NEGATIVE); OCCULT BLOOD,URINE NEGATIVE (NEGATIVE)
[2025-03-22 13:52] LABS: ADD UA MICROSCOPIC YES
[2025-03-22] MEDS: 0.9% NACL 500ML IV.SOLN 500 ML IV ONE (14:38)
[2025-03-22] MEDS ORDERED: GLUCAGON 1MG KIT 1 MG ML IM PRN (15:00)
[2025-03-22] MEDS ORDERED: DEXTROSE 50%-WATER 50 ML DISP.SYRIN IV PRN (15:00)
[2025-03-22] MEDS ORDERED: VARE1TAB24 PO (15:10)
[2025-03-22] MEDS ORDERED: TRAM-543 PO (15:10)
[2025-03-22] MEDS ORDERED: AMIO200T73 PO (15:10)
[2025-03-22] MEDS ORDERED: METO25TA6 PO (15:10)
[2025-03-22] MEDS ORDERED: DIGO125T71 PO (15:10)
[2025-03-22 15:14] LABS: INR 1.44 (0.85-1.15)
--- NOTE | 2025-03-22 15:16 | NUR ---
CARDIOVASCULAR CONSULTED DR CONROY SPOKE TO PHYSCIAN
[2025-03-22] MEDS: 0.9%NACL 1000ML 1,000 ML IV SCH (15:31)
[2025-03-22 16:00] VITALS: PULSE 68; RESP 18; O2SAT 98
[2025-03-22] MEDS: RIVAROXABAN 20 MG TABLET PO SCH (16:37)
--- NOTE | 2025-03-22 16:38 | HMCIMG ---
EXAM: CR Chest, 1 View. CLINICAL HISTORY: recetn CABG, r/o significant infiltrates COMPARISON: None provided. FINDINGS: LUNGS: There is no mass, infiltrate, or acute pulmonary abnormality. PLEURAL SPACES: No evidence of pleural effusion or pneumothorax. MEDIASTINUM: Prior CABG. The cardiomediastinal silhouette is within normal limits. BONES: No acute osseous abnormality. IMPRESSION: No acute cardiopulmonary pathology is evident. /[place]
--- NOTE | 2025-03-22 17:17 | HP ---
[facility] HISTORY AND PHYSICAL Date of Service: Mar 22, 2025 Time of Service: 17:04 HISTORY OF PRESENT ILLNESS: Date of service: 03/22/2025, patient was seen in emergency room 11 This is a 69-year-old male with underlying history of COPD, history of chronic atrial fibrillation maintained on chronic anticoagulation with Xarelto, prior history of WI with coronary artery disease with prior history of PCI, BPH, history of significant smoking, with recent history of coronary artery bypass grafting by Dr. Macedo in [facility] on 03/06/2025. Patient presented to the ER for further evaluation of generalized malaise, poor oral intake, concentrated urine. Patient states that he was hospitalized in [facility] in 03/06/2025 and was discharged on 03/13/2025. Patient had a seven day stay and reports that he was discharged on Lasix 20 mg bid. He reports that he has not had a bowel movement for one week and reports having some nausea and poor oral intake. He is being maintained on tramadol as outpatient. Denies any active chest pain, shortness of breath, focal weakness of upper or lower extremities. Denies any falls. Denies any headache. He has been compliant with his home medications. Reports that he stopped taking Lasix two days ago because he felt very dehydrat ed. He has been having some associated weight loss as well since surgery of about 10 lbs. On presentation to the hospital, patient was noted to be afebrile with T-max of 98.1 F, heart rate of 72, blood pressure of 94/70. [place] [address], hemoglobin 13.5, platelet count of [id number]. BMP showed sodium of 136, chloride of 96, CO2 of 33, BUN of 19, creatinine 1.0, blood glucose of 122, AST of 20, ALT of 21, alkaline phosphatase of 232, BNP of 413. ER requested patient to be admitted as patient appeared very dehydrated with significant concentrated urine. Patient will be admitted and will be started on gentle IV hydration, patient will be started on laxatives, we will obtain a CT abdomen pelvis without contrast to assess stool burden. We will also notify cardiovascular surgery about patient's hospitalization due to recent coronary artery bypass grafting in [facility]. Plan of care was discussed with patient at bedside. All home medications will be reconciled and updated, we will hold oral Lasix today, we will obtain a 2D echocardiogram tomorrow. If patient shows clinical improvement, we will consider discharge planning in the next 24 hours. REVIEW OF SYSTEMS: CONSTITUTIONAL: generalized fatigue, denies focal weakness NEUROLOGICAL: Denies headache, amaurosis fugax, motor weakness, sensory deficit, vertigo/spinning sensation, gait abnormalities, or tremors. ENT: No hearing loss, otalgia, otorrhea, rhinitis, rhinorrhea, hoarseness, or sore throat. CARDIOVASCULAR: Denies any exertional angina, dyspnea on exertion, orthopnea, paroxysmal nocturnal dyspnea, palpitations, life-threatening arrhythmias, cl audication. PULMONARY: Denies any shortness of breath, cough, phlegm/sputum, hemoptysis, pleuritic chest pain. SLEEP: Denies morning headaches, daytime somnolence or napping. Denies difficulty falling asleep, staying asleep, waking from sleep. Denies knowledge of snoring. GASTROINTESTINAL: reports having some nausea, has been constipated for 1 week since discharge from [facility] GENITOURINARY: Denies frequency, urgency, nocturia, hematuria or incontinence (Storage/Irritative symptoms.) Low urinary stream, straining to void, urinary intermittency or hesitancy, splitting of the voiding stream, terminal dribbling. ENDOCRINOLOGIC: Denies polyuria, polydipsia, polyphagia or heat/cold intolerances. HEMATOLOGIC: Denies thrombophilia/previous clots, or coagulopathy/bleeding disorders. ONCOLOGIC: Denies personal history of malignancy. DERMATOLOGIC: Denies rashes or pruritus. PSYCHIATRIC: Denies any suicidal or homicidal ideation. Denies hallucinations. PAST MEDICAL HISTORY History of chronic COPD with emphysema/bronchitis Prior hx of significant smoking and quit tobacco use in 03/06/25 History of chronic atrial fibrillation maintained on chronic anticoagulation with Xarelto History of coronary artery disease History of prior myocardial infarction, per patient x7 History of back pain secondary to a fracture in 1975 Myocardial infarction in 1995 BPH Was hospitalized in [facility] [place] [place] in 01/2025 for unstable angina and patient was found to have multivessel coronary artery disease and was referred to Cardiovascular surgery by Dr. 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 Allergies: Patient reports having adverse reaction to morphine Home medications: Home medications include amiodarone 200 mg b.i.d., digoxin 125 mcg daily, metoprolol tartrate 25 mg t.i.d., tramadol p.r.n. for pain, Chantix 1 mg b.i.d., aspirin 81 mg daily, Pulmicort 0.5 mg twice daily, Lipitor 80 mg HS, citalopram 20 mg daily, Pepcid 20 mg b.i.d., Xarelto 20 mg daily, vitamin D3 1000 units daily Coded Allergies: morphine (Unverified Allergy, Unknown, 08/18/22) PHYSICAL EXAM GENERAL APPEARANCE: The patient is awake, alert, and oriented, in no acute cardiopulmonary distress. NEUROLOGICAL: Cranial nerves II-XII grossly intact. Motor is 5/5 in bilateral upper and lower extremities proximal to distal. No sensory deficits. HEENT: Face is symmetric. Pupils are equal and reactive. Extraocular movements are intact. NECK: Supple. No JVD. No thyromegaly. No submental, submandibular, pre-/postauricular, occipital or supraclavicular lymphadenopathy. CHEST: Normal chest expansion. No Telemetry. LUNGS: Absence of any rales, rhonchi or any wheezing. CARDIOVASCULAR: Regular. S1 and S2 normal. No appreciable rubs, murmurs or gallops. ABDOMEN: Soft, nontender, and nondistended. There is no rebound, voluntary guarding, or rigidity. : Deferred. No Wisdom. EXTREMITIES: Non-edematous and not cyanotic. No clubbing. Good capillary refill. SKIN: No skin breakdown. Vital Sign (Last 24 Hours) 03/22/25 03/22/25 15:15 16:00 Temp 98.1 Pulse 68 Resp 18 B/P (MAP) 121/71 Pulse Ox 99 O2 Delivery N/A Room Air O2 Flow Rate 0 FiO2 21 LABS: Laboratory: Test 03/22/25 13:30 03/22/25 10:04 Range/Units Urine Color YELLOW YELLOW Urine Appearance CLOUDY H CLEAR Urine pH 5.5 5.0-8.0 Urine Specific [place] 1.027 1.001-1.031 Urine Protein 10 H NEGATIVE mg/dL Urine Glucose (UA) NEGATIVE NEGATIVE mg/dL Urine Ketones NEGATIVE NEGATIVE mg/dL Urine Occult Blood NEGATIVE NEGATIVE Urine Nitrate NEGATIVE NEGATIVE Urine Bilirubin NEGATIVE NEGATIVE mg/dL Urine Urobilinogen >=8.0 H 0.2-1.0 mg/dL Urine Leukocyte Esterase NEGATIVE NEGATIVE Florin/uL Urine RBC 0-1 0-1 /HPF Urine WBC 0-1 0-1 /HPF Urine Amorphous Crystals (Auto) RARE None Seen /LPF Urine Bacteria RARE None Seen /HPF White Blood Count 10.4 4.8-10.8 K/uL Red Blood Count 4.79 4.50-6.20 MIL/uL Hemoglobin 13.5 L 14.0-18.0 g/dL Hematocrit 41.7 L 42-54 % Mean Corpuscular Volume 87.1 79-99 fL Mean Corpuscular Hemoglobin 28.2 27.0-33.0 pg Mean Corpuscular Hemoglobin Concent 32.4 32.0-36.0 g/dL Red Cell Distribution Width 15.5 11.0-15.5 % Platelet Count 435 H 130-400 K/uL Mean Platelet Volume 9.6 7.5-10.5 fL Immature Granulocyte % (Auto) 0.4 0-1 % Neutrophils (%) (Auto) 69.6 40.0-77.0 % Lymphocytes (%) (Auto) 17.7 L 21.0-51.0 % Monocytes (%) (Auto) 10.2 3.0-13.0 % Eosinophils (%) (Auto) 1.2 0.0-8.0 % Basophils (%) (Auto) 0.9 0.0-5.0 % Neutrophils # (Auto) 7.3 1.8-7.7 K/uL Lymphocytes # (Auto) 1.9 1.0-4.8 K/uL Monocytes # (Auto) 1.1 H 0.1-1.0 K/uL Eosinophils # (Auto) 0.13 0.00-0.70 K/uL Basophils # (Auto) 0.09 0.00-0.20 K/uL Absolute Immature Granulocyte (auto 0.04 0-1 K/uL Nucleated Red Blood Cells 0.0 0.0-0.19 % Prothrombin Time 14.7 H 9.6-11.6 SEC Prothromb Time International Ratio 1.44 H 0.85-1.15 Activated Partial Thromboplast Time 37.0 H 26.3-35.5 SEC Sodium Level 136 136-145 mmol/L Potassium Level 4.1 3.5-5.1 mmol/L Chloride Level 96 L 101-111 mmol/L Carbon Dioxide Level 33 H 21-32 mmol/L Blood Urea Nitrogen 19 H 7-18 mg/dL Creatinine 1.0 0.5-1.3 mg/dL Glomerular Filtration Rate Calc 81 >90 mL/min Random Glucose 122 H 70-105 mg/dL Total Calcium 9.6 8.5-10.1 mg/dL Total Bilirubin 1.5 H 0.2-1.0 mg/dL Aspartate Amino Transf (AST/SGOT) 20 10-37 U/L Alanine Aminotransferase (ALT/SGPT) 21 12-78 U/L Alkaline Phosphatase 232 H 50-136 U/L Total Creatine Kinase 39 # 21-232 U/L Troponin I High Sensitivity 28 4-75 ng/L B-Type Natriuretic Peptide 413 H 0-100 pg/mL Total Protein 7.3 6.0-8.3 g/dL Albumin 3.3 L 3.5-5.0 g/dL Lipase 17 16-77 U/L Thyroid Stimulating Hormone (TSH) 3.03 # 0.36-3.74 uIU/mL Digoxin Level 1.60 0.50-2.00 ng/mL Current Medications Medications (Trade) Dose Ordered Sig/Kamila Route PRN Reason Start Time Stop Time Status Last Admin Dose Admin Acetaminophen (TYLenol 325MG TAB) 650 mg Q6H PRN PO MILD PAIN (1-3) 03/22/25 15:00 04/21/25 14:59 Amiodarone HCl (pacERONE 200MG) 200 mg BID PO 03/22/25 21:00 04/21/25 20:59 Aspirin (Aspirin 81mg Chew Tab) 81 mg DAILY PO 03/23/25 09:00 04/22/25 08:59 Atorvastatin Calcium (LIPItor 40MG) 80 mg HS PO 03/22/25 21:00 04/21/25 20:59 Budesonide (Pulmicort 0.5 Mg/2ml) 0.5 mg BIDRESP IH 03/22/25 18:00 04/21/25 17:59 Citalopram Hydrobromide (CeleXA 20MG TAB) 20 mg DAILY PO 03/23/25 09:00 04/22/25 08:59 Dextrose (D50w) 50 ml AD PRN IV HYPOGLYCEMIA PROTOCOL 03/22/25 15:00 04/21/25 14:59 Digoxin (LANOxin 125mcg) 125 mcg DAILY PO 03/23/25 09:00 04/22/25 08:59 Docusate Sodium (COLace 100MG CAP) 100 mg BID PO 03/22/25 21:00 04/21/25 20:59 Famotidine (Pepcid 20mg Tab) 20 mg BID PO 03/22/25 21:00 03/22/25 15:23 DC Famotidine (Pepcid 20mg Tab) 20 mg BID PO 03/22/25 21:00 04/21/25 20:59 Glucagon (Glucagon 1mg Kit) 1 mg AD PRN IM HYPOGLYCEMIA PROTOCOL 03/22/25 15:00 04/21/25 14:59 Home Med (Home Medication) Varenicline Tartrate 1 TAB BID PO 03/22/25 21:00 04/21/25 20:59 Metoprolol Tartrate (loprESSOR) 25 mg TID PO 03/22/25 21:00 04/21/25 20:59 Ondansetron HCl (zoFRAN 4MG INJ) 4 mg Q6H PRN IVP NAUSEA/VOMITING 03/22/25 15:00 04/21/25 14:59 Rivaroxaban (Xarelto) 20 mg PCLUNCH PO 03/22/25 16:30 04/21/25 16:29 03/22/25 16:37 20 MG Rivaroxaban (Xarelto) 20 mg PCLUNCH PO 03/23/25 13:00 03/22/25 16:25 DC Sodium Chloride 1,000 ml @ 50 mls/hr Q20H IV 03/22/25 15:00 04/21/25 14:59 03/22/25 15:31 50 MLS/HR Tramadol HCl (UltRAM) 50 mg Q8H PRN PO MODERATE PAIN (4-6) 03/22/25 15:00 03/27/25 14:59 DIAGNOSTICS / RADIOLOGY: SERVICE 1439 REASON: recetn CABG, r/o significant infiltrates ORDERING PHYSICIAN: JOHN WARREN MD PROCEDURE: CXR1VW - CHEST 1VW EXAM: CR Chest, 1 View. CLINICAL HISTORY: recetn CABG, r/o significant infiltrates COMPARISON: None provided. FINDINGS: LUNGS: There is no mass, infiltrate, or acute pulmonary abnormality. PLEURAL SPACES: No evidence of pleural effusion or pneumothorax. MEDIASTINUM: Prior CABG. The cardiomediastinal silhouette is within normal limits. BONES: No acute osseous abnormality. IMPRESSION: No acute cardiopulmonary pathology is evident. /[place] DICTATED BY: JOHANNY JOHNSON Jr., MD DATE: 03/22/251736 ELECTRONICALLY SIGNED BY: JOHANNY JOHNSON Jr., MD DATE: 03/22/251736 ASSESSMENT: Acute dehydration with prerenal azotemia, POA Contraction alkalosis, POA Hx of Diuretic use as outpatient, POA Recent history of coronary artery bypass grafting in [facility] on 03/06/2025, POA Constipation, POA History of prior WI, POA History of coronary artery disease with history of prior multiple PCIs, POA Previous history of significant smoking and quit in 03/08, POA History of chronic COPD with chronic bronchitis, POA Hypertension, POA Hyperlipidemia, POA History of BPH, POA History of chronic atrial fibrillation maintained on anticoagulation with Xarelto, POA PLAN: Patient will be placed under observation in medical-surgical floor under telemetry monitoring We will start patient on gentle IV hydration with NS at 50 mL/hour We will obtain a 2D echocardiogram to assess LVF We will hold Lasix for today at least for management of dehydration We will continue with patient's home dose of amiodarone 200 mg b.i.d., metoprolol tartrate 25 mg t.i.d., continue with aspirin 81 mg daily company, continue with chronic home dose of Xarelto 20 mg with lunch We will obtain a FENA We will follow up CT abdomen pelvis without contrast to assess stool burden, patient reports feeling mildly nauseated after not having had a bowel movement for seven days, patient denies any significant abdominal pain or vomiting I notified Dr. Magarakis about this patient due to recent surgery in the last two weeks Patient will be started on Colace twice daily and MiraLax daily p.r.n. for management of constipation All labs will be repeated in the morning We will see how patient progresses in the next 24 hours, we will request consultation with PT. We will monitor this patient closely and further orders per clinical course Date of service: 03/22/2025 Plan of care was discussed with patient at bedside, John Warren MD Advanced Care Planning: Which of the following were discussed: Hospice care: Yes __ No _X_ Therapeutic options: Yes _X_ No __ Advance directives: Yes _X_ No __ Other discussions: Discussed with who?: Patient Voluntary nature of this service was explained to the patient? Yes _x_ No __ Amount of time spent: 20 minutes JOHN WARREN MD Mar 22, 2025 17:17
[2025-03-22] MEDS: BUDESONIDE 0.5 MG/2 ML INH IH SCH (19:12)
[2025-03-22 19:13] VITALS: PULSE 74; RESP 18
[2025-03-22 19:14] VITALS: PULSE 74; RESP 18; O2SAT 98
[2025-03-22 19:45] VITALS: BP 112/70; PULSE 71; RESP 18; TEMP 97.8
[2025-03-22] MEDS ORDERED: MAGNESIUM 2GM PREMIX 50ML 50 ML IV SCH (20:30)
[2025-03-22] MEDS ORDERED: PoTASSium chl 10% ELIXIR 20MEQ 20 MEQ/15 ML UDCUP PO PRN (20:30)
[2025-03-22 21:00] VITALS: O2SAT 97
[2025-03-22] MEDS ORDERED: FAMOTIDINE 20MG TAB PO SCH (21:00)
--- NOTE | 2025-03-22 21:00 | NUR ---
ASSESS PT RECEIVED FROM AM NURSE AT 1900 JUST ADMITTED ON THE FLOOR AT 1830. DUE MEDS ADMINISTERED BY JIMMY ADAMS. ADMISSION DATA BASE COMPLETED. SHIFT ASSESSMENT DONE, PLEASE REFER TO CHART. CONTINUED IVF OF NS REGULATED AT 50CC/HR. KEPT RESTED AND COMFORTABLE IN BED. CALL LIGHT WITHIN REACH. ORIENTED TO ROOM AND UNIT. IN FOR MORE CARE AND MANAGEMENT.
[2025-03-22] MEDS: FAMOTIDINE 20MG TAB PO SCH (21:02)
[2025-03-23] VITALS (10 sets, daily range): BP systolic 108–121; BP diastolic 59–76; PULSE 53–82; RESP 18–20; TEMP 97.4–98.1; O2SAT 94–99
[2025-03-23 06:05] LABS: IMMATURE GRANULOCYTE ABSOLUTE 0.05 K/uL (0-1); NUCLEATED RED BLOOD CELLS 0.0 % (0.0-0.19); PLATELET COUNT (AUTO) 377 K/uL (130-400); RED BLOOD CELL COUNT(AUTO) 4.48 MIL/uL (4.50-6.20); RED CELL DISTRIBUTION WIDTH 15.3 % (11.0-15.5); WHITE BLOOD COUNT (AUTO) 8.3 K/uL (4.8-10.8)
[2025-03-23 06:31] LABS: ASPARTATE AMINOTRANSFERASE 21.0 U/L (10-37); CREATININE 0.8 mg/dL (0.5-1.3); GLOMERULAR FILTR. RATE CALC 96.0 mL/min (>90); GLUCOSE,RANDOM 93.0 mg/dL (70-105); SODIUM SERUM 136.0 mmol/L (136-145); TOTAL PROTEIN, SERUM 6.6 g/dL (6.0-8.3); UREA NITROGEN, BLOOD 18.0 mg/dL (7-18)
[2025-03-23] MEDS: PoTASSium chloRIDE 20MEQ ER 20 MEQ ERTAB PO PRN (06:46)
[2025-03-23] MEDS: ASPIRIN 81MG CHEW TAB PO SCH (09:39)
[2025-03-23] MEDS: LACTULOSE 20 GM/30 ML UDCUP PO PRN (09:40)
[2025-03-23] MEDS: PoTASSium chloRIDE 20MEQ ER 20 MEQ ERTAB PO ONE (09:45)
[2025-03-23 10:12] LABS: CREATININE,URINE RANDOM 305.1 mg/dL (30-135)
--- NOTE | 2025-03-23 12:03 | PN ---
[facility] PROGRESS NOTE Date of Service: Mar 23, 2025 Time of Service: 11:59 SUBJECTIVE: 03/23 the patient has been seen and examined at bedside, case discussed with the RN, no acute events overnight, patient admitted to medical floor, the time of my visit comfortably in bed, alert oriented x3, BP 150/75, afebrile, saturating normal on room air, he denies dizziness, no headache, no chest pain, no shortness a breath, no cough, no nausea, no vomiting, no abdominal discomfort. No bowel movement in the last few days. Hemoglobin 12.6, hematocrit 38.6. Sodium 136, potassium 3.3, BUN of 18, creatinine 0.8, magnesium 2.1. Albumin 3.3. Digoxin level 1.6. Chest x-ray no acute cardiopulmonary pathology. REVIEW OF SYSTEMS: CONSTITUTIONAL: generalized fatigue, denies focal weakness NEUROLOGICAL: Denies headache, amaurosis fugax, motor weakness, sensory deficit, vertigo/spinning sensation, gait abnormalities, or tremors. ENT: No hearing loss, otalgia, otorrhea, rhinitis, rhinorrhea, hoarseness, or sore throat. CARDIOVASCULAR: Denies any exertional angina, dyspnea on exertion, orthopnea, paroxysmal nocturnal dyspnea, palpitations, life-threatening arrhythmias, claudication. PULMONARY: Denies any shortness of breath, cough, phlegm/sputum, hemoptysis, pleuritic chest pain. SLEEP: Denies morning headaches, daytime somnolence or napping. Denies difficulty falling asleep, staying asleep, waking from sleep. Denies knowledge of snoring. GASTROINTESTINAL: reports having some nausea, has been constipated for 1 week since discharge from [facility] GENITOURINARY: Denies frequency, urgency, nocturia, hematuria or incontinence (Storage/Irritative symptoms.) Low urinary stream, straining to void, urinary intermittency or hesitancy, splitting of the voiding stream, terminal dribbling. ENDOCRINOLOGIC: Denies polyuria, polydipsia, polyphagia or heat/cold intolerances. HEMATOLOGIC: Denies thrombophilia/previous clots, or coagulopathy/bleeding disorders. ONCOLOGIC: Denies personal history of malignancy. DERMATOLOGIC: Denies rashes or pruritus. PSYCHIATRIC: Denies any suicidal or homicidal ideation. Denies hallucinations. PHYSICAL EXAM GENERAL APPEARANCE: The patient is awake, alert, and oriented, in no acute cardiopulmonary distress. NEUROLOGICAL: Cranial nerves II-XII grossly intact. Motor is 5/5 in bilateral upper and lower extremities proximal to distal. No sensory deficits. HEENT: Face is symmetric. Pupils are equal and reactive. Extraocular movements are intact. NECK: Supple. No JVD. No thyromegaly. No submental, submandibular, pre- /postauricular, occipital or supraclavicular lymphadenopathy. CHEST: Normal chest expansion. No Telemetry. LUNGS: Absence of any rales, rhonchi or any wheezing. CARDIOVASCULAR: Regular. S1 and S2 normal. No appreciable rubs, murmurs or gallops. ABDOMEN: Soft, nontender, and nondistended. There is no rebound, voluntary guarding, or rigidity. : Deferred. No Wisdom. EXTREMITIES: Non-edematous and not cyanotic. No clubbing. Good capillary refill. SKIN: No skin breakdown. Vital Signs (last 8hr) Date Time Temp Pulse Resp B/P (MAP) Pulse Ox O2 Delivery O2 Flow Rate FiO2 03/23/25 09:40 77 03/23/25 08:00 97.5 77 18 115/75 95 Room Air 03/23/25 07:19 94 Room Air* 0 21 03/23/25 06:10 67 18 N/A Room Air 21 03/23/25 06:10 67 18 03/23/25 04:01 97.5 63 20 120/76 94 Room Air LABS: Laboratory: Test 03/23/25 05:55 03/22/25 13:32 03/22/25 13:30 03/22/25 10:04 Range/Units White Blood Count 8.3 4.8-10.8 K/uL Red Blood Count 4.48 L 4.50-6.20 MIL/uL Hemoglobin 12.6 L 14.0-18.0 g/dL Hematocrit 38.6 L 42-54 % Mean Corpuscular Volume 86.2 79-99 fL Mean Corpuscular Hemoglobin 28.1 27.0-33.0 pg Mean Corpuscular Hemoglobin Concent 32.6 32.0-36.0 g/dL Red Cell Distribution Width 15.3 11.0-15.5 % Platelet Count 377 130-400 K/uL Mean Platelet Volume 9.4 7.5-10.5 fL Immature Granulocyte % (Auto) 0.6 0-1 % Neutrophils (%) (Auto) 68.5 40.0-77.0 % Lymphocytes (%) (Auto) 18.2 L 21.0-51.0 % Monocytes (%) (Auto) 10.4 3.0-13.0 % Eosinophils (%) (Auto) 1.3 0.0-8.0 % Basophils (%) (Auto) 1.0 0.0-5.0 % Neutrophils # (Auto) 5.7 1.8-7.7 K/uL Lymphocytes # (Auto) 1.5 1.0-4.8 K/uL Monocytes # (Auto) 0.9 0.1-1.0 K/uL Eosinophils # (Auto) 0.11 0.00-0.70 K/uL Basophils # (Auto) 0.08 0.00-0.20 K/uL Absolute Immature Granulocyte (auto 0.05 0-1 K/uL Nucleated Red Blood Cells 0.0 0.0-0.19 % Sodium Level 136 136-145 mmol/L Potassium Level 3.3 L 3.5-5.1 mmol/L Chloride Level 100 L 101-111 mmol/L Carbon Dioxide Level 28 21-32 mmol/L Blood Urea Nitrogen 18 7-18 mg/dL Creatinine 0.8 0.5-1.3 mg/dL Glomerular Filtration Rate Calc 96 >90 mL/min Random Glucose 93 70-105 mg/dL Total Calcium 8.9 8.5-10.1 mg/dL Magnesium Level 2.10 1.80-2.40 mg/dL Total Bilirubin 1.3 H 0.2-1.0 mg/dL Aspartate Amino Transf (AST/SGOT) 21 10-37 U/L Alanine Aminotransferase (ALT/SGPT) 20 12-78 U/L Alkaline Phosphatase 218 H 50-136 U/L Total Protein 6.6 6.0-8.3 g/dL Albumin 3.0 L 3.5-5.0 g/dL Urine Random Creatinine 305.10 H 30-135 mg/dL Urine Random Sodium 85 40-220 mmol/l Urine Color YELLOW YELLOW Urine Appearance CLOUDY H CLEAR Urine pH 5.5 5.0-8.0 Urine Specific [place] 1.027 1.001-1.031 Urine Protein 10 H NEGATIVE mg/dL Urine Glucose (UA) NEGATIVE NEGATIVE mg/dL Urine Ketones NEGATIVE NEGATIVE mg/dL Urine Occult Blood NEGATIVE NEGATIVE Urine Nitrate NEGATIVE NEGATIVE Urine Bilirubin NEGATIVE NEGATIVE mg/dL Urine Urobilinogen >=8.0 H 0.2-1.0 mg/dL Urine Leukocyte Esterase NEGATIVE NEGATIVE Florin/uL Urine RBC 0-1 0-1 /HPF Urine WBC 0-1 0-1 /HPF Urine Amorphous Crystals (Auto) RARE None Seen /LPF Urine Bacteria RARE None Seen /HPF Prothrombin Time 14.7 H 9.6-11.6 SEC Prothromb Time International Ratio 1.44 H 0.85-1.15 Activated Partial Thromboplast Time 37.0 H 26.3-35.5 SEC Total Creatine Kinase 39 # 21-232 U/L Troponin I High Sensitivity 28 4-75 ng/L B-Type Natriuretic Peptide 413 H 0-100 pg/mL Lipase 17 16-77 U/L Thyroid Stimulating Hormone (TSH) 3.03 # 0.36-3.74 uIU/mL Digoxin Level 1.60 0.50-2.00 ng/mL Current Medications Medications (Trade) Dose Ordered Sig/Kamila Route PRN Reason Start Time Stop Time Status Last Admin Dose Admin Acetaminophen (TYLenol 325MG TAB) 650 mg Q6H PRN PO MILD PAIN (1-3) 03/22/25 15:00 04/21/25 14:59 Amiodarone HCl (pacERONE 200MG) 200 mg BID PO 03/22/25 21:00 04/21/25 20:59 03/23/25 09:38 200 MG Aspirin (Aspirin 81mg Chew Tab) 81 mg DAILY PO 03/23/25 09:00 04/22/25 08:59 03/23/25 09:39 81 MG Atorvastatin Calcium (LIPItor 40MG) 80 mg HS PO 03/22/25 21:00 04/21/25 20:59 03/22/25 21:03 80 MG Budesonide (Pulmicort 0.5 Mg/2ml) 0.5 mg BIDRESP IH 03/22/25 18:00 04/21/25 17:59 03/23/25 06:10 0.5 MG Citalopram Hydrobromide (CeleXA 20MG TAB) 20 mg DAILY PO 03/23/25 09:00 04/22/25 08:59 03/23/25 09:38 20 MG Dextrose (D50w) 50 ml AD PRN IV HYPOGLYCEMIA PROTOCOL 03/22/25 15:00 04/21/25 14:59 Digoxin (LANOxin 125mcg) 125 mcg DAILY PO 03/23/25 09:00 04/22/25 08:59 03/23/25 09:40 125 MCG Docusate Sodium (COLace 100MG CAP) 100 mg BID PO 03/22/25 21:00 04/21/25 20:59 03/23/25 09:38 100 MG Famotidine (Pepcid 20mg Tab) 20 mg BID PO 03/22/25 21:00 03/22/25 15:23 DC Famotidine (Pepcid 20mg Tab) 20 mg BID PO 03/22/25 21:00 04/21/25 20:59 03/23/25 09:38 20 MG Glucagon (Glucagon 1mg Kit) 1 mg AD PRN IM HYPOGLYCEMIA PROTOCOL 03/22/25 15:00 04/21/25 14:59 Home Med (Home Medication) Varenicline Tartrate 1 TAB BID PO 03/22/25 21:00 04/21/25 20:59 Lactulose (Constulose 20gm/ 30ml Udcup) 20 gm BID PRN PO CONSTIPATION 03/23/25 09:00 04/22/25 08:59 03/23/25 09:40 20 GM Magnesium Sulfate 50 ml @ 0 mls/hr PROTOCOL IV 03/22/25 20:30 04/21/25 20:29 Metoprolol Tartrate (loprESSOR) 25 mg TID PO 03/22/25 21:00 04/21/25 20:59 03/23/25 09:38 25 MG Ondansetron HCl (zoFRAN 4MG INJ) 4 mg Q6H PRN IVP NAUSEA/VOMITING 03/22/25 15:00 04/21/25 14:59 Potassium Chloride 100 ml @ 100 mls/hr AD PRN IV POTASSIUM PROTOCOL 03/22/25 20:30 04/21/25 20:29 Potassium Chloride (K-Dur/Klor-Con 20meq) 20 meq AD PRN PO POTASSIUM PROTOCOL 03/22/25 20:30 04/21/25 20:29 03/23/25 09:40 20 MEQ Potassium Chloride (KCl 10% Elixir 20meq/15ml) 20 meq AD PRN PO POTASSIUM PROTOCOL 03/22/25 20:30 04/21/25 20:29 Rivaroxaban (Xarelto) 20 mg PCLUNCH PO 03/22/25 16:30 04/21/25 16:29 03/22/25 16:37 20 MG Rivaroxaban (Xarelto) 20 mg PCLUNCH PO 03/23/25 13:00 03/22/25 16:25 DC Sodium Chloride 1,000 ml @ 50 mls/hr Q20H IV 03/22/25 15:00 04/21/25 14:59 03/23/25 09:37 50 MLS/HR Tramadol HCl (UltRAM) 50 mg Q8H PRN PO MODERATE PAIN (4-6) 03/22/25 15:00 03/27/25 14:59 03/22/25 18:50 50 MG DIAGNOSTICS / RADIOLOGY: [ ] ASSESSMENT: Acute dehydration with prerenal azotemia, POA Contraction alkalosis, POA Hx of Diuretic use as outpatient, POA Recent history of coronary artery bypass grafting in [facility] on 03/06/2025, POA Constipation, POA History of prior DC, POA History of coronary artery disease with history of prior multiple PCIs, POA Previous history of significant smoking and quit in 03/08, POA History of chronic COPD with chronic bronchitis, POA Hypertension, POA Hyperlipidemia, POA History of BPH, POA History of chronic atrial fibrillation maintained on anticoagulation with Xarelto, POA PLAN: Patient remains admitted to medical floor Continue patient on gentle IV hydration with NS at 50 mL/hour We will obtain a 2D echocardiogram to assess LVF Continue to hold Lasix for today at least for management of dehydration We will continue with patient's home dose of amiodarone 200 mg b.i.d., metoprolol tartrate 25 mg t.i.d., continue with aspirin 81 mg daily company, continue with chronic home dose of Xarelto 20 mg with lunch We will follow up CT abdomen pelvis without contrast to assess stool burden, patient reports feeling mildly nauseated after not having had a bowel movement for seven days, patient denies any significant abdominal pain or vomiting Dr. Alicia notified about this patient due to recent surgery in the last two weeks Patient started on Colace twice daily and MiraLax daily p.r.n. for management of constipation All labs will be repeated in the morning Plan of action discussed with the patient and at bedside, all questions ans wered, agreed and understood the information provided. SUSU VASQUEZ MD Mar 23, 2025 12:02
[2025-03-23] MEDS ORDERED: RIVAROXABAN 20 MG TABLET PO SCH (13:00)
--- NOTE | 2025-03-23 13:20 | HMCSR ---
APPROVED REPORT EXAM: Two-dimensional and M-mode echocardiogram with Doppler and color Doppler. Study Details: TDS INDICATION ICD: Post CABG 2D Dimensions RVDd 3.8 cm LVOT diam 2.2 (1.8-2.4cm) LVED Vol(simp.) 86.0 mL IVC diam 1.7 cm LVES Vol(simp.) 38.0 mL LVEF(%, simp.) 55 % LA ESV INDEX (BP) 45.31 mL/m2 Deformation Strain Apical 4 -17.1 % Apical 2 -13.4 % Apical 3 -18.1 % Global Strain -16.2 % Aortic Valve AoV Vmax 1.1 m/s Ao Peak GR 4.6 mmHg LVOT Vmax 0.7 m/s AoV VTI 0.2 m Ao Mean GR 2.8 mmHg LVOT VTI 0.13 m JAYDA (VMAX) 2.66 cm2 JAYDA (VTI) 2.8 cm2 Mitral Valve MV E Vmax 73.7 cm/s DECEL Time 149 ms P 1/2 T 33 ms MVA (PHT) 6.6 cm2 TDI E/E' Medial 6.5 E/E' Lateral 5.4 Medial E' Peak V 11.41 cm/s Lateral E' Peak V 13.66 cm/s Pulmonary Valve PV Vmax 1.0 m/s PV Mean GR 1.7 mmHg PV Peak GR 3.9 mmHg Tricuspid Valve RAP (EST) 3 mmHg RVSP 3.0 mmHg Left Ventricle The left ventricle is normal size. GLS -16.0% There is normal LV segmental wall motion. left ventricular wall appears normal in thickness The LVEF is > 55%. E/A flow appear fused. Right Ventricle The right ventricle is normal size. The right ventricular systolic function is normal. Atria The left atrium is moderately dilated. The right atrium is severely dilated. Aortic Valve The aortic valve is normal in structure. No aortic regurgitation is present. There is no aortic valvular stenosis. Mitral Valve The mitral valve is normal in structure. There is trace of mitral valve regurgitation noted. There is no mitral valve stenosis. Tricuspid Valve The tricuspid valve is normal in structure. There is trace of tricuspid valve regurgitation noted. Pulmonic Valve The pulmonary valve is normal in structure. There is no pulmonic valvular regurgitation. Great Vessels The aortic root is normal in size. The IVC is normal in size and collapses >50% with inspiration. Pericardium There is no pericardial effusion. Other Information Quality : Technically difficult study due to body habitus Conclusion The LVEF is > 55%. GLS -16.0% There is normal LV segmental wall motion.
--- NOTE | 2025-03-23 23:53 | CONS ---
TIME: 10:00 a.m. HISTORY OF PRESENT ILLNESS: The patient is a 69-year-old gentleman who presented with dehydration and hypokalemia, status post CABG from a few weeks ago. Cardiac Surgery was consulted for further management. PHYSICAL EXAMINATION: NEUROLOGIC: Alert and oriented with no deficits. CARDIOVASCULAR: S1 and S2. Regular rate and rhythm. RESPIRATORY: Clear to auscultation bilaterally. SKIN: Incision is clean, dry, and intact. ASSESSMENT AND PLAN: The patient is status post CABG, recovering well overall. He is presenting with dehydration and hypokalemia. The medical service is taking care of him. They will rehydrate him with IV fluids and replacing his potassium. We will follow him as an outpatient in our clinic. TID: [id number] RECEIPT: [id number]
[2025-03-24] VITALS (8 sets, daily range): BP systolic 116–141; BP diastolic 57–94; PULSE 58–65; RESP 18–19; TEMP 97.9–98.1; O2SAT 96
--- NOTE | 2025-03-24 04:14 | NUR ---
V TACH TELE SYSTEM SPECIALIST CALLED THAT PT HAD A RUN OF 10 BEATS OF V-TACH. WENT TO CHECK ON PT. NO DISTRESS NOTED. NO COMPLAINTS VERBALIZED. V/S MONITORED, STABLE. [facility] CHIEF VIA ANSWERING SERVICE. AWAITING CALL BACK.
--- NOTE | 2025-03-24 04:37 | NUR ---
RODRIGUE TAVARES NP, CALLED BACK. INFORMED OF PT'S RUNS OF VTACH. UPDATED ON PT'S CONDITION. FOUNDER / CEO STATED TO PRINT STRIP AND TO NOTIFY GIS SPECIALIST IN AM ROUNDS. NO FURTHER ORDERS GIVEN.
[2025-03-24 05:44] LABS: ASPARTATE AMINOTRANSFERASE 23.0 U/L (10-37); CREATININE 0.9 mg/dL (0.5-1.3); GLOMERULAR FILTR. RATE CALC 92.0 mL/min (>90); GLUCOSE,RANDOM 97.0 mg/dL (70-105); SODIUM SERUM 139.0 mmol/L (136-145); TOTAL PROTEIN, SERUM 6.2 g/dL (6.0-8.3); UREA NITROGEN, BLOOD 18.0 mg/dL (7-18)
[2025-03-24 06:08] LABS: NUCLEATED RED BLOOD CELLS 0.0 % (0.0-0.19); PLATELET COUNT (AUTO) 344.0 K/uL (130-400); RED BLOOD CELL COUNT(AUTO) 4.24 MIL/uL (4.50-6.20); RED CELL DISTRIBUTION WIDTH 15.6 % (11.0-15.5); WHITE BLOOD COUNT (AUTO) 9.4 K/uL (4.8-10.8)
--- NOTE | 2025-03-24 06:29 | HMCIMG ---
EXAM: CT Abdomen and Pelvis Without IV contrast CLINICAL HISTORY: constipation for 7 days, hx of CABG in 03/06/25, nausea. TECHNIQUE: Axial computed tomography images of the abdomen and pelvis without intravenous contrast. CONTRAST: No IV contrast. COMPARISON: None provided. FINDINGS: LUNG BASES: The lung bases appear clear.A mild left basal pleural reaction is present. No pleural effusions are seen. Elevated left kelly diaphragm. LIVER: Unremarkable. GALLBLADDER AND BILE DUCTS: The gallbladder appears within normal limits. No radioopaque gallstones are seen. No biliary ductal dilatation is evident. PANCREAS: Unremarkable. SPLEEN: Unremarkable. ADRENAL GLANDS: Unremarkable. KIDNEYS, URETERS, AND BLADDER: The kidneys appear within normal limits. There is no hydronephrosis or hydroureter. No urinary calculi are seen. Mild bilateral perinephric fat stranding. Bilateral hypodense thin-walled renal cortical cysts are present, the largest measuring 5.8 cm at the upper pole of the right kidney. STOMACH AND BOWEL: Unremarkable appearance of the stomach and bowel. No evidence of bowel obstruction. No evidence suggesting enteritis or colitis. APPENDIX: Normal appendix. PERITONEUM: No free fluid. No free air. LYMPH NODES: No lymphadenopathy is evident. REPRODUCTIVE: The prostate measures 3.4 x 4.6 x 4.1 cm(volume 32 cc)and is mildly enlarged. VASCULATURE: Abdominal aortobiiliac stent is noted in situ, no evidence of abdominal aortic aneurysm. BONES: No aggressive appearing osseous lesion. No acute osseous pathology evident. IMPRESSION: No acute intra-abdominal or pelvic abnormality. Mild prostatomegaly. /[place]
--- NOTE | 2025-03-24 10:19 | NUR ---
DCP:HOME Pt states that he currently lives at home with his Elizabet Rios [phone]. Pt states that he has a walker and scooter at home. Pt denies having any provider or home health services. Pt states that normally he can complete ADLs independently. PCP is Dr. Jordan Ulrich ([facility]) and uses the [facility] for any RX needs. At DC pt will want to go home and family can assist with transportation.
[2025-03-24] MEDS ORDERED: NITR0.4T50 SL (12:51)
[2025-03-24 13:22] LABS: NUCLEATED RED BLOOD CELLS 0.0 % (0.0-0.19); PLATELET COUNT (AUTO) 364.0 K/uL (130-400); RED BLOOD CELL COUNT(AUTO) 4.36 MIL/uL (4.50-6.20); RED CELL DISTRIBUTION WIDTH 15.6 % (11.0-15.5); WHITE BLOOD COUNT (AUTO) 9.4 K/uL (4.8-10.8)
--- NOTE | 2025-03-24 16:30 | NUR ---
PATIENT DISCHARGED HOME ID BAND,IV AND TELE ROSA ISELA REMOVED. DISCHARGE INSTRUCTIONS EXPLAINED AND GIVEN TO PATIENT. PATIENT VERBALIZED UNDERSTANDING. BELONGINGS PACKED AND TAKEN BY PATIENT. WHEELED DOWN TO PRIVATE CAR.
== END 2025-03-24 16:30 | disposition home or self-care (01) ==
LOC: EDH 09:44 → EDHIP 14:32 → 3CH 18:35
PROVIDERS: ADMIT Internal Medicine; ATTEND Internal Medicine
DX: E86.0 Dehydration (principal); E87.3 Alkalosis; E78.00 Pure hypercholesterolemia, unspecified; E87.6 Hypokalemia; I10 Essential (primary) hypertension; I25.10 Atherosclerotic heart disease of native coronary artery without angina pectoris; K59.00 Constipation, unspecified; M54.9 Dorsalgia, unspecified; R53.81 Other malaise; N40.0 Benign prostatic hyperplasia without lower urinary tract symptoms; Z79.01 Long term (current) use of anticoagulants; Z79.82 Long term (current) use of aspirin; Z87.891 Personal history of nicotine dependence; Z95.1 Presence of aortocoronary bypass graft; Z98.61 Coronary angioplasty status; Z79.899 Other long term (current) drug therapy; Z98.890 Other specified postprocedural states
CPT/HCPCS: 96360; 99284; 80162; 84443; 82550; 82570; 84484; 80053 ×3; 84300; 83880; 83690; 85025 ×2; 85610; 85730; 81001; 36415 ×3; 71045; 74176; 93005; 94640; 96361 ×2; 83735 ×2; 93306; 93356; 97161; 97116; 97530 ×2; 85027 ×2; G0378 ×50; J7040; J7030; 94664

== ENCOUNTER 2025-04-23 10:40 | Emergency (ER) | payer MEDICARE, OTHER ==
[~2025-04-23] VITALS: Ht 182.9 cm; Wt 79.4 kg
--- NOTE | 2025-04-23 10:52 | NUR ---
PATIENT IN ROOM
--- NOTE | 2025-04-23 10:53 | ERN ---
ED Note History of Present Illness Stated Complaint: SOB Chief Complaint: Shortness of Breath Time Seen by MD: 10:42 Time Seen by Midlevel: 10:43 Dictation: Mr. Marin is a 70-year-old gentleman with history of CAD/CABG (February 2025), atrial fibrillation, hypertension, CHF, COPD, and GERD who presented to the emergency department this morning for evaluation of shortness of breath. He states that he developed shortness of breath initially with exertion last evening. Symptoms worsened today; dyspneic at rest. He denies fever, chills, cough, chest pain, palpitations, edema, abdominal pain, nausea, vomiting, diarrhea, dysuria, headache, dizziness, or focal weakness/paresthesia. PCP: [facility] Ground Operations Superintendent: Dr. Garcia Lipcoat Sprayer: [facility] Allergies: Coded Allergies: morphine (Unverified Allergy, Unknown, 08/18/22) Emergency Care CURATOR HERBARIUM: None Home Meds Active Scripts Nitroglycerin (Nitroglycerin) 0.4 Mg Tab.subl, 1 TAB SL AD for chest pain, #25 TAB 1 Refill 1st sign of attack; may repeat every 5 mins; if pain persists after 3 in 15 min, medical attention is recommended Prov:SUSU VASQUEZ MD 03/24/25 Ipratropium [place] (Atrovent Neb Soln) 0.2 Mg/Ml (0.02 %) Soln, 0.5 MG IH [id number], #2 ML Prov:EVIE FONTENOT MD 01/15/25 Budesonide (Budesonide) 0.5 Mg/2 Ml Ampul.neb, 0.5 MG IH BID, #2 " 1 Refill Prov:EVIE FONTENOT MD 01/15/25 Reported Medications Varenicline Tartrate (Varenicline Tartrate) 1 Mg Tablet, 1 TAB PO BID for 28 Days, #56 TAB 0 Refills 03/22/25 Metoprolol Tartrate (Metoprolol Tartrate) 25 Mg Tablet, 25 MG PO TID, TAB 03/22/25 Tramadol HCl/Acetaminophen (Tramadol-Acetaminophn 37.5-325) 37.5 Mg-325 Mg Tablet, 1 TAB PO TID PRN for pain for 30 Days, #90 TAB 0 Refills 03/22/25 Amiodarone HCl (Amiodarone HCl) 200 Mg Tablet, 200 MG PO BID, TAB 03/22/25 Digoxin (Digoxin) 125 Mcg (0.125 Mg) Tablet, 125 MCG PO DAILY, TAB 03/22/25 Aspirin (ASPIRIN 81MG CHEW TAB) 81 Mg Tab.chew, 81 MG PO DAILY, TAB.CHEW 02/08/25 Famotidine (Famotidine) 20 Mg Tablet, 20 MG PO BID, TAB 08/18/22 Citalopram Hydrobromide (Citalopram HBr) 20 Mg Tablet, 20 MG PO DAILY, TAB 08/18/22 [Vitamin D3] No Conflict Check, 1000 UNITS PO DAILY 08/18/22 Atorvastatin Calcium (LIPITOR) 80 Mg Tablet, 80 MG PO HS, TAB 08/18/22 Rivaroxaban (Xarelto) 20 Mg Tablet, 20 MG PO PCLUNCH, TAB 08/18/22 Past Medical History Past Medical History: A-Fib, CAD, COPD, High Cholesterol, Hypertension Surgical History: CABG, Other Surgical History Other: CABG 03/06/25 PSYCH History: no pertinent psych hx Family History: Negative Social History: Smokers RN Note Reviewed/Agreed w/PFSH: Yes Review of System Dictation REVIEW OF SYSTEMS: CONSTITUTIONAL: Patient denies fevers, chills, sweats and weight changes. Reports fatigue and general weakness EYES: Patient denies any visual symptoms. EARS, NOSE, AND THROAT: No difficulties with hearing. No symptoms of rhinitis or sore throat. CARDIOVASCULAR: Patient denies chest pains, palpitations, orthopnea and paroxysmal nocturnal dyspnea. RESPIRATORY: No wheezing or cough. Reports history COPD. Reports shortness of breath that began last evening; symptoms worse today. GI: No nausea, vomiting, diarrhea, constipation, abdominal pain, hematochezia or melena. : No urinary hesitancy or dribbling. No nocturia or urinary frequency. No abnormal urethral discharge. MUSCULOSKELETAL: No myalgias or arthralgias. NEUROLOGIC: No chronic headaches, no seizures. Patient denies numbness, tingling or weakness. PSYCHIATRIC: Patient denies problems with mood disturbance. No problems with anxiety. ENDOCRINE: No excessive urination or excessive thirst. DERMATOLOGIC: Patient denies any rashes or skin changes. Initial Vital Sign VS Vital Signs Date Time Temp Pulse Resp B/P (MAP) Pulse Ox O2 Delivery O2 Flow Rate FiO2 12/10/25 10:42 97.9 97 20 103/46 95 Room Air 04/23/25 10:52 0 21 Physical Exam Dictation Vital signs: Reviewed. Afebrile Constitutional: No acute distress. Accompanied by significant other. Head/Face: Normocephalic, atraumatic. Eyes: Periorbital areas with no swelling, redness, or edema. Lids and lashes are normal. Conjunctival injection is absent. Sclera anicteric. Pupils equal, round, reactive to light. ENT: Pinnas intact and no signs of trauma or erythema. Ear canals clear and no discharge. TMs no erythema. No nasal discharge or bleeding noted. Oropharynx with no exudate, redness, swelling, masses, exudates, or evidence of obstruction. Uvula midline. Mucous membranes moist. Neck: Trachea midline, no masses palpated, and no cervical lymphadenopathy. No swelling. Supple, full range of motion. Chest/Axilla: No tenderness, no crepitus, no paradoxical movement, no retractions. Cardiovascular: Regular rate, regular rhythm, no murmur, no gallops. Symmetric pulses. No peripheral edema. Normotensive; BP 103/43 Respiratory: Respirations even and unlabored at rest. Lung sounds with crackles right lower lobe; no wheezes or rhonchi. Room air SpO2 96% Gastrointestinal: Inspection is normal. No distention is appreciated. Bowel sounds are normal. No mass or organomegaly . There is no tenderness. No rebound. No rigidity. No voluntary or involuntary guarding. No Farias's sign. Neurological: Normal speech, gross motor function intact, gross sensory function intact. No focal weakness/Paresthesia. Musculoskeletal/Extremities: All extremities have full range of motion, no pain or tenderness on palpation. Symmetric pulses. Integumentary: Intact. Skin is normal color, warm and dry. Cap refill less than 3 seconds. Results (Laboratory/Radiology) Laboratory/Radiology Laboratory Tests Test 04/23/25 10:34 04/23/25 11:00 White Blood Count 13.2 K/uL (4.8-10.8) H Red Blood Count 4.77 MIL/uL (4.50-6.20) Hemoglobin 13.2 g/dL (14.0-18.0) L Hematocrit 41.4 % (42-54) L Mean Corpuscular Volume 86.8 fL (79-99) Mean Corpuscular Hemoglobin 27.7 pg (27.0-33.0) Mean Corpuscular Hemoglobin Concent 31.9 g/dL (32.0-36.0) L Red Cell Distribution Width 14.9 % (11.0-15.5) Platelet Count 312 K/uL (130-400) Mean Platelet Volume 9.4 fL (7.5-10.5) Immature Granulocyte % (Auto) 0.5 % (0-1) Neutrophils (%) (Auto) 81.3 % (40.0-77.0) H Lymphocytes (%) (Auto) 8.4 % (21.0-51.0) L Monocytes (%) (Auto) 8.6 % (3.0-13.0) Eosinophils (%) (Auto) 0.5 % (0.0-8.0) Basophils (%) (Auto) 0.7 % (0.0-5.0) Neutrophils # (Auto) 10.7 K/uL (1.8-7.7) H Lymphocytes # (Auto) 1.1 K/uL (1.0-4.8) Monocytes # (Auto) 1.1 K/uL (0.1-1.0) H Eosinophils # (Auto) 0.06 K/uL (0.00-0.70) Basophils # (Auto) 0.09 K/uL (0.00-0.20) Absolute Immature Granulocyte (auto 0.07 K/uL (0-1) Nucleated Red Blood Cells 0.0 % (0.0-0.19) White Cell Morphology Comment See comments Sodium Level 139 mmol/L (136-145) Potassium Level 4.1 mmol/L (3.5-5.1) Chloride Level 101 mmol/L (101-111) Carbon Dioxide Level 28 mmol/L (21-32) Blood Urea Nitrogen 15 mg/dL (7-18) Creatinine 0.9 mg/dL (0.5-1.3) Glomerular Filtration Rate Calc 92 mL/min (>90) Random Glucose 120 mg/dL (70-105) H Lactic Acid Level 1.8 mmol/L (0.8-2.5) Total Calcium 9.5 mg/dL (8.5-10.1) Total Bilirubin 1.3 mg/dL (0.2-1.0) H Direct Bilirubin 0.4 mg/dL (0.0-0.3) H Aspartate Amino Transf (AST/SGOT) 21 U/L (10-37) Alanine Aminotransferase (ALT/SGPT) 31 U/L (12-78) Alkaline Phosphatase 210 U/L (50-136) H Troponin I High Sensitivity 12 ng/L (4-75) B-Type Natriuretic Peptide 216 pg/mL (0-100) H Total Protein 7.0 g/dL (6.0-8.3) Albumin 3.4 g/dL (3.5-5.0) L Influenza Type A Antigen Negative For Type A Influenza Type B Antigen Negative For Type B SARS-CoV-2, RNA, NAAT NEGATIVE SARS CoV-2 Labs Reviewed?: Yes EKG Comment: EKG Interpretation: Time Reviewed: 1054 Ventricular rate: 82 bpm QRS duration: 98ms No ST segment elevation or depression. Clinical impression: Atrial fibrillation EKG Reviewed and interpreted by X-RAY Comment: PATIENT: MELISSA MARIN MR#: [id number] : 1955 SEX: M AGE: 70 LOCATION: [facility] ORDER 1048 STATUS: [facility] REPORT#: [id number] SERVICE 1047 REASON: shortness of breath ORDERING PHYSICIAN: COLEEN GALLEGOS [employer] PROCEDURE: CXR1VW - CHEST 1VW EXAM: CR Chest, 2 View. CLINICAL HISTORY: shortness of breath COMPARISON: 03/22 15:12 EST FINDINGS: LUNGS: Shallow lung volumes limits evaluation. Bibasilar atelectasis. Azygous lobe is noted. Asymmetric interstitial densities in the periphery of the left lung, nonspecific, may represent infectious etiology. PLEURAL SPACES: No pleural effusion or pneumothorax. MEDIASTINUM: Cardiac size and mediastinal contours within normal limits. BONES: No aggressive appearing osseous lesion seen. IMPRESSION: Shallow lung volumes limits evaluation. Asymmetric interstitial densities in the periphery of the left lung, nonspecific, may represent infectious etiology. /[place] DICTATED BY: MICHEL DUNCAN DO DATE: 04/23/251324 ELECTRONICALLY SIGNED BY: MICHEL DUNCAN DO DATE: 04/23/251324 CT Scan Comment: PATIENT: MELISSA MARIN MR#: [id number] : 1955 PATIENT: MELISSA MARIN MR#: [id number] : 1955 SEX: M AGE: 70 LOCATION: [facility] ORDER 16 STATUS: REG ER REPORT#: [id number] SERVICE 16 REASON: shortness of breath ORDERING PHYSICIAN: COLEEN GALLEGOS PROCEDURE: [facility] PE - CT CHEST PE PROTOCOL WWO CONT EXAM: CTA Chest with and without Intravenous Contrast for PE evaluation CLINICAL HISTORY: shortness of breath TECHNIQUE: Axial CTA images of the chest with and without intravenous contrast using a pulmonary embolism protocol. Multiplanar reconstructed images were created and reviewed. CONTRAST: None. was administered without incident. COMPARISON: None provided. FINDINGS: PULMONARY ARTERIES: No evidence of central or segmental pulmonary embolism is seen. AORTA: There is no evidence for aneurysm or dissection of the thoracic aorta. LUNGS: Right azygous lobe. Paraseptal and centrilobular pulmonary emphysema. Airspace densities me to lower left upper lobe suggestive of infectious etiology. PLEURAL SPACES: No evidence of pneumothorax. No pleural effusion. HEART: Heart size is within normal limits. No significant pericardial effusion. LYMPH NODES: No lymphadenopathy is evident. BONES: No focal osseous abnormality or acute fracture. UPPER ABDOMEN: Reflux of contrast into the hepatic IVC suggestive of underlying diminished cardiac output. IMPRESSION: 1. No evidence of pulmonary embolism. 2. Left upper lobe airspace densities, suggestive of infection. 3. Reflux of contrast into hepatic IVC, suggestive of diminished cardiac output. /[place] DICTATED BY: MICHEL DUNCAN DO DATE: 04/23/251617 ELECTRONICALLY SIGNED BY: MICHEL DUNCAN DO DATE: 04/23/251617 ED Course ED Course Orders Procedure Category Date Status Time Cbc With Differential LAB 04/23/25 Complete 10:47 Basic Metabolic Panel LAB 04/23/25 Complete 10:47 Troponin I High LAB 04/23/25 Complete Sensitivity 10:47 B-Type Natriuretic LAB 04/23/25 Complete Peptide 10:47 Hepatic Function Panel LAB 04/23/25 Complete 10:47 Chest 1vw RAD 04/23/25 Resulted 10:47 12 Lead Ekg Tracing- EKG 04/23/25 Resulted Technical 10:47 Saline Lock Iv CPOE 04/23/25 Transmitted 10:47 Influenza Type A & B, LAB 04/23/25 Complete Rapid 10:47 Covid Rna Naat LAB 04/23/25 Complete 10:47 Lactic Acid LAB 04/23/25 Complete 10:50 Ct Chest Pe Protocol CT 04/23/25 Resulted Wwo Cont 12:17 Iohexol (Omnipaque) PHA 04/23/25 Complete 13:43 Iohexol (Omnipaque) PHA 04/23/25 Complete 13:48 Current Medications Medications (Trade) Dose Ordered Sig/Kamila Route PRN Reason Start Time Stop Time Status Last Admin Dose Admin Iohexol (Omnipaque) 75 ml STK-MED ONCE IV 04/23/25 13:43 04/23/25 13:44 DC Iohexol (Omnipaque) 75 ml STK-MED ONCE IV 04/23/25 13:48 04/23/25 13:48 DC Vital Signs Date Time Temp Pulse Resp B/P (MAP) Pulse Ox O2 Delivery O2 Flow Rate FiO2 04/23/25 13:38 97.9 97 20 122/88 95 Room Air* 0 21 04/23/25 10:52 97.9 97 20 103/46 95 Room Air* 0 21 04/23/25 10:42 97.9 97 20 103/46 95 Room Air Uneventful ED course. Vital signs remained stable; afebrile and normotensive with room air SpO2 95%. Patient denies shortness of breath at rest. Laboratory findings as noted below. No elevation of lactic acid. WBCs with slight elevation at 13.2, H and H stable 13.2/41.4, albumin 3.4, ALP 210, total bili 1.3, glucose 120, and BNP 216. Troponin is negative. Influenza A/B and COVID are negative. Chest x-ray noted asymmetrical interstitial densities along the periphery of the left lung. CT scan of the chest noted left upper lobe density suggestive of infection. Negative for PE. Patient received initial dose doxycycline. Findings were discussed with patient and significant other and all questions were answered. Recommended patient be admitted for IV antibiotics and observation but Patient requests to be discharged to home states he is feeling much better. Medical Decision Making [facility] MDM: Differential diagnosis:Acute decompensated heart failure, NSTEMI/ACS, arrhythmia related dyspnea, ischemic cardiomyopathy flare/low output heart failure, COPD exacerbation, CAP Rationale: Tests considered and ordered secondary to shared decision making include: Previous outside records reviewed: Old ER visits. Risk of complication and/or morbidity or mortality of patient management: None Medications-Per medication reconciliation Need for hospitalization: Patient does not meet criteria for hospitalization. Need for emergency major/minor surgery: No There are no social concerns with this patient. Prescription drug management: Doxycycline Prescriptions will include symptomatic care Patient's prior external medical records from other ER visits were reviewed by me as indicated. Prior testing and results from previous visits were reviewed. Prior tests were taken into account with medical decision making and resource utilization, independent historian/historians were used to obtain complete medical history. I independently interpreted the test that were performed, results were reviewed by me and considered findings on radiology if ordered. Medical management and examination interpretation discussions were had by me with other qualified healthcare professionals as indicated for the patient's care. DX & DISP Disposition: Discharge Departure Impression: Primary Impression: Shortness of breath at rest Additional Impression: Pneumonia Condition: Stable Scripts Doxycycline Monohydrate (Doxycycline Monohydrate) 100 Mg Capsule 1 CAP PO BID for 7 Days, #14 CAP 0 Refills Prov: COLEEN GALLEGOS [facility] 04/23/25 Additional Instructions: Your CAT scan today showed a left upper lobe infection, which is consistent with pneumonia. You also had a flare-up of your COPD. The good news is that your oxygen levels are stable, you are breathing comfortably, and you are safe to continue treatment at home. Start doxycycline twice daily; take until gone. Continue your medications and use your rescue inhaler as needed for shortness of breath or wheezing. You may to use Tylenol if needed for fever. Rest and avoid strenuous activity. Use your home breathing treatments if you have them. Avoid smoking, vaping, and exposure to smoke. Please follow up with your primary care doctor or lung specialists within the next 2-3 seconds check your breathing and sure that the infection is improving. Return to the emergency department immediately if you develop: Difficulty breathing/worsening shortness of breath, chest pain, fever greater than 102 that does not improve, oxygen saturation below 90%, severe weakness/dizziness/confusion, persistent vomiting or inability to keep medicines down, coughing up blood, or any new or worsening symptoms that concern you. Referrals: MIGUEL JACKSON MD (PCP) Time of Disposition: 15:25 COLEEN GALLEGOS Apr 23, 2025 10:53
[2025-04-23 11:06] LABS: IMMATURE GRANULOCYTE ABSOLUTE 0.07 K/uL (0-1); NUCLEATED RED BLOOD CELLS 0.0 % (0.0-0.19); PLATELET COUNT (AUTO) 312 K/uL (130-400); RED BLOOD CELL COUNT(AUTO) 4.77 MIL/uL (4.50-6.20); RED CELL DISTRIBUTION WIDTH 14.9 % (11.0-15.5); WHITE BLOOD COUNT (AUTO) 13.2 K/uL (4.8-10.8)
--- NOTE | 2025-04-23 11:11 | EKG ---
[facility] Test Date: 2025-04-23 Test Time: 10:54:11 Pat Name: MELISSA MARIN Department: ED Room: Gender: M Distribution A Class Lineman: [facility] : 1955 Requested By: COLEEN GALLEGOS Order Number: [id number] Reading MD: Kelly Fuentes Measurements Intervals [place] Rate: 82 P: 0 IA: 0 QRS: 40 QRSD: 98 T: 212 QT: 369 QTc: 432 Interpretive Statements Atrial fibrillation Nonspecific repol abnormality, diffuse leads Compared to ECG 03/22/2025 10:43:38 Early repolarization now present Electronically Signed On 04-23-2025 12:41:14 [employer] by Kelly Fuentes Please click the below link to view image of tracing.
[2025-04-23 11:29] LABS: SARS-CoV-2, RNA, NAAT NEGATIVE SARS CoV-2 (NEGATIVE)
[2025-04-23 11:33] LABS: INFLUENZA TYPE A Negative For Type A (NEGATIVE); INFLUENZA TYPE B Negative For Type B (NEGATIVE)
[2025-04-23 11:40] LABS: ASPARTATE AMINOTRANSFERASE 21.0 U/L (10-37); CREATININE 0.9 mg/dL (0.5-1.3); GLOMERULAR FILTR. RATE CALC 92.0 mL/min (>90); GLUCOSE,RANDOM 120.0 mg/dL (70-105); SODIUM SERUM 139.0 mmol/L (136-145); TOTAL PROTEIN, SERUM 7.0 g/dL (6.0-8.3); UREA NITROGEN, BLOOD 15.0 mg/dL (7-18)
--- NOTE | 2025-04-23 12:25 | HMCIMG ---
EXAM: CR Chest, 2 View. CLINICAL HISTORY: shortness of breath COMPARISON: 03/22 15:12 EST FINDINGS: LUNGS: Shallow lung volumes limits evaluation. Bibasilar atelectasis. Azygous lobe is noted. Asymmetric interstitial densities in the periphery of the left lung, nonspecific, may represent infectious etiology. PLEURAL SPACES: No pleural effusion or pneumothorax. MEDIASTINUM: Cardiac size and mediastinal contours within normal limits. BONES: No aggressive appearing osseous lesion seen. IMPRESSION: Shallow lung volumes limits evaluation. Asymmetric interstitial densities in the periphery of the left lung, nonspecific, may represent infectious etiology. /[place]
[2025-04-23] MEDS ORDERED: IOHEXOL-350 75 ML VIAL IV ONE ×2 (13:43→13:48)
--- NOTE | 2025-04-23 15:19 | HMCIMG ---
EXAM: CTA Chest with and without Intravenous Contrast for PE evaluation CLINICAL HISTORY: shortness of breath TECHNIQUE: Axial CTA images of the chest with and without intravenous contrast using a pulmonary embolism protocol. Multiplanar reconstructed images were created and reviewed. CONTRAST: None. was administered without incident. COMPARISON: None provided. FINDINGS: PULMONARY ARTERIES: No evidence of central or segmental pulmonary embolism is seen. AORTA: There is no evidence for aneurysm or dissection of the thoracic aorta. LUNGS: Right azygous lobe. Paraseptal and centrilobular pulmonary emphysema. Airspace densities me to lower left upper lobe suggestive of infectious etiology. PLEURAL SPACES: No evidence of pneumothorax. No pleural effusion. HEART: Heart size is within normal limits. No significant pericardial effusion. LYMPH NODES: No lymphadenopathy is evident. BONES: No focal osseous abnormality or acute fracture. UPPER ABDOMEN: Reflux of contrast into the hepatic IVC suggestive of underlying diminished cardiac output. IMPRESSION: 1. No evidence of pulmonary embolism. 2. Left upper lobe airspace densities, suggestive of infection. 3. Reflux of contrast into hepatic IVC, suggestive of diminished cardiac output. /[place]
[2025-04-23] MEDS: DOXYCYCLINE HYCLATE 100 MG TABLET PO ONE (15:32)
[2025-04-23 15:49] VITALS: BP 109/82; PULSE 67; RESP 12; TEMP 97.9; O2SAT 90
== END 2025-04-23 16:14 | disposition home or self-care (01) ==
LOC: EDH 10:40
DX: J18.9 Pneumonia, unspecified organism (principal); I10 Essential (primary) hypertension; I25.10 Atherosclerotic heart disease of native coronary artery without angina pectoris; E78.00 Pure hypercholesterolemia, unspecified; I48.91 Unspecified atrial fibrillation; J44.9 Chronic obstructive pulmonary disease, unspecified; K21.9 Gastro-esophageal reflux disease without esophagitis; F17.200 Nicotine dependence, unspecified, uncomplicated; Z88.5 Allergy status to narcotic agent; Z79.899 Other long term (current) drug therapy; Z79.82 Long term (current) use of aspirin; Z95.1 Presence of aortocoronary bypass graft; Z20.822 Contact with and (suspected) exposure to COVID-19
CPT/HCPCS: 99285; 71270; 71045; 87635; 80076; 84484; 80048; 83880; 85025; 87804 ×2; 83605; 36415; 93005; Q9967